=== PATIENT | female | born 1975 | race Caucasian/White ===

== ENCOUNTER 2021-06-06 01:06 | Inpatient (IN) | payer MEDICAID, SELFPAY ==
[2021-06-06] VITALS (23 sets, daily range): BP systolic 76–199; BP diastolic 58–114; PULSE 54–131; RESP 20–30; TEMP 36.1–37.3; O2SAT 92–100; BMI 43.4
--- NOTE | ~2021-06-06 | CT_ITS ---
EXAMINATION: CT abdomen pelvis wo con DATE: 06/08/2021 11:10 INDICATION: Anemia. TECHNIQUE: Computed tomography (CT) of the abdomen and pelvis was performed without intravenous contr ast. Automated exposure control and iterative reconstruction technique were employed. The dose-length product was 1684.97 mGy-cm. COMPARISON: CT abdomen and pelvis 06/06/2021 FINDINGS: The visualized portions of the lung bases demonstrate small pleural effusions and dependent atelectasis. The heart size is normal. No pericardial effusion. The nasogastric tube tip is in the s tomach. There is mild elevation of right hemidiaphragm. The liver and gallbladder are normal. There i s contrast in the gallbladder, which is normal in size. The pancreas, adrenal glands, and kidneys are normal. The bladder is decompressed by a Barton catheter. There is an anastomosis in the sigmoid colo n. There are changes of right hemicolectomy. There are a few dilated loops of small bowel. There is a small volume of ascites. There are foci of free intraperitoneal gas, consistent with recent surgery. There is a surgical drain in the subcutaneous fat in right abdominal wall. There is fat stranding an d a small volume of fluid in this area. There is a catheter in right common femoral vein with tip in right external iliac vein. There is a left-sided ventral hernia containing fat. There is mild peripor michelle and left para-aortic lymphadenopathy, likely reactive. There is mild thoracolumbar spondylosis. IMPRESSION: 1. Small volume of fluid in the subcutaneous fat in right anterior abdominal wall with surgical drain . 2. Small volume of ascites. 3. Small pleural effusions. 4. Mild periportal and left para-aortic lymphadenopathy, likely reactive. 5. Left-sided ventral hernia containing fat. Reviewed, dictated and finalized at location A. ER FOLDER IMPRESSION: 1. Small volume of fluid in the subcutaneous fat in right anterior abdominal wa ll with surgical drain. 2. Small volume of ascites. 3. Small pleural effusions. 4. Mild periportal and left para-aortic lymphadenopathy, likely reactive. 5. Left-sided ventral hernia containing fat.
--- NOTE | ~2021-06-06 | XR_ITS ---
EXAMINATION: XR chest 1V portable DATE: 06/08/2021 06:06 INDICATION: Respiratory failure. TECHNIQUE: A single frontal view of the chest was obtained. COMPARISON: Chest single view 06/07/2021, CT abdomen and pelvis 06/06/2021 FINDINGS: The patient is rotated to her right. There are mild airspace opacities in the lower lung zo zoë. No pleural effusion or pneumothorax. The heart size is normal. The endotracheal tube tip is 5.5 cm above the cesar. The nasogastric tube tip is beyond the inferior margin of the radiograph, but at least to the stomach. IMPRESSION: 1. Mild airspace opacities in the lower lung zones, consistent with atelectasis versus pneumonia. Reviewed, dictated and finalized at location A. ER INFLATED PAD
--- NOTE | ~2021-06-06 | CT_ITS ---
EXAMINATION: CT abdomen pelvis w con INDICATION: Right-sided abdominal pain, history of bowel resection and hernia repair TECHNIQUE: Computed tomographic images of the abdomen and pelvis were obtained after the administrati on of 100 cc of Omnipaque 350 intravenous contrast. The dose-length product (DLP) was 2082.89 mGy-cm. Automated exposure control and iterative reconstruction technique were employed. COMPARISON: None available FINDINGS: Minimal dependent atelectasis is present in the lung bases. The heart size is normal. The l iver, spleen, pancreas, gallbladder, and adrenal glands are normal. The kidneys are unremarkable. The re is a moderate-sized ventral hernia in the right upper quadrant containing a nonobstructed segment of transverse colon. The transverse colon enters the abdomen and immediately herniates through a seco nd adjacent ventral hernia located just to the right of midline. There are free gas and stool within the hernia sac which extend into the abdomen with an approximately 8 cm area of free stool seen in th e abdomen. An approximately 9.5 cm area of free intraperitoneal gas extends superiorly from the local ized stool. There is a left lower quadrant ventral hernia containing a short segment of the descendin g colon. A surgical anastomosis is noted in the sigmoid colon. No pathologically enlarged abdominal o r pelvic lymph nodes are identified. There is a 6.8 cm subcutaneous lipoma of the left lateral chest wall. There is mild lumbar spondylosis. IMPRESSION: 1. Right-sided ventral hernias containing transverse colon as detailed above with perforation and a l arge volume of free stool in the abdomen and in the lateral of the two hernia sacs. This finding was communicated to Dr. Henning in the operating room at 0932 hours on 06/06/2021. 2. Left lower quadrant ventral hernia containing a short segment of nondistended descending colon. Reviewed, dictated and finalized at location A. EY TECHNOLOGIST IMPRESSION: 1. Right-sided ventral hernias containing transverse colon as detailed above wi th perforation and a large volume of free stool in the abdomen and in the later al of the two hernia sacs. This finding was communicated to Dr. Henning in the ope rating room at 0932 hours on 06/06/2021. 2. Left lower quadrant ventral hernia containing a short segment of nondistende d descending colon.
--- NOTE | ~2021-06-06 | XR_ITS ---
EXAMINATION: XR chest 1V portable DATE: 06/09/2021 06:02 INDICATION: Respiratory failure. TECHNIQUE: A single frontal view of the chest was obtained. COMPARISON: Chest single view 06/08/2021, CT abdomen and pelvis 06/08/2021 FINDINGS: There is mild atelectasis in the lower lung zones. No pleural effusion or pneumothorax. The heart size is normal. The endotracheal tube tip is 5.2 cm above the cesar. The nasogastric tube tip is beyond the inferior margin of the radiograph, but at least to the stomach. IMPRESSION: 1. Mild atelectasis in the lower lung zones. Reviewed, dictated and finalized at location A. ET JOURNEYMAN
--- NOTE | ~2021-06-06 | XR_ITS ---
EXAMINATION: XR chest 1V portable DATE: 06/10/2021 06:05 INDICATION: Respiratory failure. TECHNIQUE: A single frontal view of the chest was obtained. COMPARISON: Chest single view 06/09/2021, CT abdomen and pelvis 06/08/2021 FINDINGS: There is a small right pleural effusion. There are airspace opacities in the lower lung zon es. No pneumothorax. The heart size is normal. IMPRESSION: 1. Airspace opacities in the lower lung zones with worsening on the left, consistent with atelectasis versus pneumonia. 2. Small right pleural effusion. Reviewed, dictated and finalized at location A. ARIAL ASSOCIATE IMPRESSION: 1. Airspace opacities in the lower lung zones with worsening on the left, consi stent with atelectasis versus pneumonia. 2. Small right pleural effusion.
--- NOTE | ~2021-06-06 | XR_ITS ---
EXAMINATION: XR chest ET placement DATE: 06/06/2021 13:56 INDICATION: Intubation. TECHNIQUE: A single frontal view of the chest was obtained. COMPARISON: Chest 2 views 04/19/2009, CT abdomen and pelvis 06/06/2021 FINDINGS: There is mild atelectasis in the lower lung zones. No pleural effusion or pneumothorax. The heart size is normal. The endotracheal tube tip is 5.6 cm above the cesar. The nasogastric tube tip is beyond the inferior margin of the radiograph, but at least to the stomach. IMPRESSION: 1. Mild atelectasis in the lower lung zones. Reviewed, dictated and finalized at location A. RATORY SAMPLE CARRIER
--- NOTE | ~2021-06-06 | XR_ITS ---
EXAMINATION: XR chest 1V portable INDICATION: Respiratory failure TECHNIQUE: Portable AP chest at 0508 hours COMPARISON: 06/06/2021 FINDINGS: The endotracheal tube ends approximately 4.5 cm above the cesar. The nasogastric tube is f ollowed as far as the stomach. Its tip is beyond the inferior margin of the radiograph. There is mild atelectasis of the lung bases. No pleural effusion or pneumothorax is identified. The cardiomediasti nal silhouette is normal. IMPRESSION: 1. Mild atelectasis of the lung bases. Reviewed, dictated and finalized at location A. ROOM PERSONNEL
--- NOTE | ~2021-06-06 | XR_ITS ---
EXAMINATION: XR abdomen NG/feed tube insert DATE: 06/06/2021 05:02 INDICATION: Nasogastric tube placement. TECHNIQUE: An upright view of the abdomen was obtained. COMPARISON: CT abdomen and pelvis 06/06/2021 FINDINGS: The lower abdomen is excluded. There are no visible dilated loops of bowel. The nasogastric tube tip is in the stomach. IMPRESSION: 1. Nasogastric tube tip in the stomach. Reviewed, dictated and finalized at location A. SALES SERVICE PROFESSIONAL
[2021-06-06] MEDS: ONDANSETRON INJ 4 MG/2 ML VIAL IV PUSH (01:25)
[2021-06-06] MEDS: SODIUM CHLORIDE 0.9% IV 1,000 ML 999 ML IV CONT ×4 (01:25→21:41)
[2021-06-06] MEDS: MORPHINE SULFATE (*CRX) 4 MG/ML INJ IV PUSH ×2 (01:25→02:15)
[2021-06-06 01:35] LABS: Basophils Absolute Auto 0.1 K/mm3 (0.0-0.1); Basophils Percent Auto 0.8 % (0.2-1.2); Eosinophils Absolute Auto 0.3 K/mm3 (0-0.3); Eosinophils Percent Auto 2.3 % (0-4.4); Hematocrit 41.8 % (37.0-47.0); Hemoglobin 13.9 g/dL (12.0-15.0); Immature Granulocyte Absolute 0.11 K/mm3 (0.00-0.031); Immature Granulocyte Percent A 0.7 % (0-0.5); Lymphocytes Percent Auto 34.3 % (18.3-44.2); Mean Corpuscular HGB Conc 33.3 g/dl (32-36); Mean Corpuscular Hemoglobin 27.5 pg (26-34); Mean Corpuscular Volume 82.6 fl (80-100); Mean Platelet Volume 9.8 fl (7.4-10.4); Monocytes Percent Auto 6.5 % (2.6-8.5); Neutrophils Absolute Auto 8.3 K/mm3 (1.3-6.7); Neutrophils Percent Auto 55.4 % (45.5-73.1); Platelet Count Result 351 k/mm3 (150-375); Red Blood Count 5.06 M/mm3 (4.2-5.4); Red Cell Distribution Width 14.7 % (11.5-14.5); White Blood Count 14.9 K/mm3 (4.5-10.0)
--- NOTE | 2021-06-06 01:35 | ED.ABDPAIN ---
HPI - Abdominal Pain General Chief Complaint: Abdominal Pain Stated Complaint: abdominal pain Time Seen by Provider: 06/06/21 01:16 Source: patient History of Present Illness HPI narrative: Patient presents with nausea vomiting diarrhea and abdominal pain. Patient ports a history of bowel resection and hernia repairs. Her symptoms started this evening and began progressively worse so she came to the ER for evaluation. Her pain is primarily on her right abdomen is sharp, constant, no clear aggravating or alleviating factors, no radiation. She denies any blood or bile or melena she denies any fevers or sick contacts Related Data Allergies Allergy/AdvReac Type Severity Reaction Status Date / Time No Known Allergies Allergy Verified 06/06/21 02:47 Review of Systems Review of Systems: CONSTITUTIONAL: Denies fever, chills, or sweats. EYES: Denies visual changes, redness, or discharge. ENT: Denies rhinorrhea, congestion, sore throat, or otalgia. CARDIOVASCULAR: Denies chest pain, palpitations, or edema. RESPIRATORY: Denies cough or dyspnea. GASTROINTESTINAL: + Abdominal pain with nausea vomiting diarrhea GENITOURINARY: Denies dysuria or hematuria. SKIN: Denies rash or itching. MUSCULOSKELETAL: Denies back pain, joint pain, or myalgia. NEUROLOGIC: Denies headache, numbness, dizziness, or weakness. PSYCHIATRIC: Denies anxiety or depression. All systems reviewed & are unremarkable except as noted in HPI and below PMFSH Past Medical History Medical History (Updated 06/06/21 @ 04:28 by Gilberto Alex MD) Patient denies significant medical history Social History Social History (Updated 06/06/21 @ 01:37 by Gilberto Alex MD) Substance use type: does not use Exam Narrative: GENERAL: Well-appearing, well-nourished, and in moderate distress due to pain HEAD: Normocephalic, atraumatic. EYES: PERRLA and EOMI. ENT: Nares clear, no rhinorrhea or epistaxis. Mucous membranes moist. NECK: Supple. No masses. No JVD CHEST: Clear to auscultation. No respiratory distress. No wheezes rales or rhonchi HEART: Regular rate and rhythm. No murmur heard. Normal peripheral pulses. ABDOMEN: Mild tenderness of patient on the right soft, large midline abdominal scar normal active bowel sounds. EXTREMITIES: Normal range of motion. No edema. SKIN: Warm, dry, no rash. NEURO: No focal deficits. Alert and oriented x3. PSYCH: Normal mood and affect. Course Reevaluation(s) Reevaluation #1: Patient continues to be in moderate distress due to pain imaging returned concerning for possible ischemic bowel and perforation surgical team was consulted patient was started on antibiotics patient family were updated on results and plan Date: 06/06/21 Time: 04:26 Consultations Consultation #1: Case discussed with Dr. Henning who will be seeing the patient this morning. Date: 06/06/21 Time: 04:26 Consultation #2: Dr. Henning contact wong regaurding patients pain Date: 06/06/21 Time: 04:50 Vital Signs Vital signs: Vital Signs Temperature 36.2 C L 06/06/21 01:11 Pulse Rate 91 06/06/21 01:11 Respiratory Rate 25 H 06/06/21 01:11 Blood Pressure 146/109 H 06/06/21 01:11 Pulse Oximetry 100 06/06/21 01:11 Temperature 36.2 C L 06/06/21 01:11 Pulse Rate 118 H 06/06/21 06:36 Respiratory Rate 29 H 06/06/21 06:36 Blood Pressure 168/97 H 06/06/21 06:36 Pulse Oximetry 92 06/06/21 06:36 MDM - Abdominal Pain MDM Narrative Medical decision making narrative: Patient presented nondistressed due to abdominal pain vital signs were reassuring labs and imaging obtained labs notable for elevated white count elevated lactate imaging concerning for ischemic bowel and possible localized perforation surgical team was consulted to evaluate the patient this morning. Patient is admitted to the hospitalist team for further management. Family is comfortable with the inpatient plan. Lab Data Result diagrams: 06/06/21 01:27 06/06/21 01:
[2021-06-06 01:49] LABS: Alanine Aminotransferase 14 U/L (4-35); Albumin Level 4.5 g/dL (3.5-5.1); Alkaline Phosphatase 60 U/L (38-126); Anion Gap 16 mmol/L (8-16); Aspartate Amino Transferase 23 U/L (14-36); Bilirubin,Total 0.5 mg/dL (0.2-1.3); Blood Urea Nitrogen 20 mg/dL (7-17); Calcium 10.4 mg/dL (8.4-10.2); Carbon Dioxide 22 mmol/L (22-30); Chloride 99 mmol/L (98-107); Estimated CRCL calculation 82 ml/min; Estimated Glomerular Filt Rate 59; Glucose 197 mg/dL (65-110); Lipase 765 U/L (23-300); Potassium 3.2 mmol/L (3.4-5.0); Sodium 137 mmol/L (137-145)
[2021-06-06 01:52] LABS: Lactic Acid Reflex 4.6 mmol/L (0.7-2.1)
[2021-06-06] MEDS: HYDROmorphone HCL INJ (*CRX) 1 MG/ML SYR IM (02:54)
[2021-06-06] MEDS: SODIUM CHLORIDE 0.9% IV 500 ML 50 ML IV CONT (03:11)
[2021-06-06] MEDS: KCL 20 MEQ/SW 100 ML 100 ML 50 MEQ IVPB ×2 (03:11→05:14)
[2021-06-06] MEDS: HYDROmorphone HCL INJ (*CRX) 1 MG/ML SYR IV PUSH ×3 (04:24→14:22)
[2021-06-06 04:32] LABS: Reflex Lactic Acid Yes or No Add Lactic
[2021-06-06] MEDS: HYDROmorphone HCL INJ (*CRX) 1 MG/ML SYR 0.5 MG IV PUSH ×2 (05:11→06:11)
[2021-06-06 05:18] LABS: Lactic Acid 5.7 mmol/L (0.7-2.1)
[2021-06-06] MEDS: SODIUM CHLORIDE 0.9% IV 1,000 ML 125 ML IV CONT (07:46)
--- NOTE | 2021-06-06 08:23 | WPDANESEPPF ---
Anes - Initial Pre Proc Eval Procedure: Operation Date: 06/06/21 09:00 Proposed Procedures p Repair Incarcerated Incisional Hernia with Strangulation - Luisito Henning MD Date/Time: 06/06/21 08:23 Pre Op Diagnosis: Abdominal Pain Patient Data Age: 46 Gender: F Height: 1.68 m Weight: 122 kg Last Vital Signs Temp 36.2 C L 06/06/21 01:11 Pulse 123 H 06/06/21 08:19 Resp 30 H 06/06/21 08:19 BP 190/110 H 06/06/21 08:19 Pulse Ox 97 06/06/21 08:19 Allergies Allergy/AdvReac Type Severity Reaction Status Date / Time No Known Allergies Allergy Verified 06/06/21 02:47 Laboratory Tests 06/06/21 06/06/21 06/06/21 01:27 01:27 01:27 WBC 14.9 K/mm3 H K/mm3 (4.5-10.0) RBC 5.06 M/mm3 M/mm3 (4.2-5.4) Hgb 13.9 g/dL g/dL (12.0-15.0) Hct 41.8 % % (37.0-47.0) MCV 82.6 fl fl (80-100) MCH 27.5 pg pg (26-34) MCHC 33.3 g/dl g/dl (32-36) RDW 14.7 % H % (11.5-14.5) Plt Count 351 k/mm3 k/mm3 (150-375) MPV 9.8 fl fl (7.4-10.4) Immature Gran % (Auto) 0.7 % H % (0-0.5) Neut % (Auto) 55.4 % % (45.5-73.1) Lymph % (Auto) 34.3 % % (18.3-44.2) [place] % (Auto) 6.5 % % (2.6-8.5) Eos % (Auto) 2.3 % % (0-4.4) Baso % (Auto) 0.8 % % (0.2-1.2) Lymph # (Auto) 5.10 K/mm3 H K/mm3 (0.9-3.2) [place] # (Auto) 1.0 K/mm3 H K/mm3 (0.1-0.6) Eos # (Auto) 0.3 K/mm3 K/mm3 (0-0.3) Baso # (Auto) 0.1 K/mm3 K/mm3 (0.0-0.1) Abs Immat Gran (auto) 0.11 K/mm3 H K/mm3 (0.00-0.031) Absolute Neuts (auto) 8.3 K/mm3 H K/mm3 (1.3-6.7) Absolute Nucleated RBC 0.0 K/mm3 K/mm3 (0.0-0.012) Nucleated RBC % 0.0 % % (0.0-0.2) Sodium 137 mmol/L mmol/L (137-145) Potassium 3.2 mmol/L L mmol/L (3.4-5.0) Chloride 99 mmol/L mmol/L (98-107) Carbon Dioxide 22 mmol/L mmol/L (22-30) Anion Gap 16 mmol/L mmol/L (8-16) BUN 20 mg/dL H mg/dL (7-17) Creatinine 1.00 mg/dL mg/dL (0.7-1.0) Estim Creat Clear Calc 82 ml/min ml/min Estimated GFR 59 (59 - ) Glucose 197 mg/dL H mg/dL (65-110) Lactic Acid 4.6 mmol/L H* mmol/L (0.7-2.1) Calcium 10.4 mg/dL H mg/dL (8.4-10.2) Total Bilirubin 0.5 mg/dL mg/dL (0.2-1.3) AST 23 U/L U/L (14-36) ALT 14 U/L U/L (4-35) Alkaline Phosphatase 60 U/L U/L (38-126) Total Protein 8.0 g/dL g/dL (6.3-8.2) Albumin 4.5 g/dL g/dL (3.5-5.1) Lipase 765 U/L H U/L (23-300) 06/06/21 04:39 WBC RBC Hgb Hct MCV MCH MCHC RDW Plt Count MPV Immature Gran % (Auto) Neut % (Auto) Lymph % (Auto) [place] % (Auto) Eos % (Auto) Baso % (Auto) Lymph # (Auto) [place] # (Auto) Eos # (Auto) Baso # (Auto) Abs Immat Gran (auto) Absolute Neuts (auto) Absolute Nucleated RBC Nucleated RBC % Sodium Potassium Chloride Carbon Dioxide Anion Gap BUN Creatinine Estim Creat Clear Calc Estimated GFR Glucose Lactic Acid 5.7 mmol/L H* mmol/L (0.7-2.1) Calcium Total Bilirubin AST ALT Alkaline Phosphatase Total Protein Albumin Lipase Patient hx anesthesia problems: none Family hx anesthesia problems: none Results Review: All pre-operative results and documents have been reviewed as part of the pre-operative evaluation. [facility] Past Medical History Medical History (Updated 06/06/21 @ 08:25 by Mandeep Flor MD) Morbid obesity Surgical History Surgical History (Updated 06/06/21 @ 08:25 by Mandeep Flor MD) Hist
--- NOTE | 2021-06-06 08:30 | PC.NURSE ---
to pre-op area at this time
[2021-06-06] MEDS: LACTATED RINGERS 1,000 ML 30 ML IV CONT (08:32)
--- NOTE | 2021-06-06 08:57 | WPDHPUPDATE1 ---
History and Physical Update Update Date/Time: 06/06/21 08:57 History and Physical has been reviewed, including an updated exam of the patient. There are NO changes in the patient's condition. Risks, benefits, and alternatives have been discussed and questions answered. Patient agrees to proceed with procedure.
[2021-06-06] MEDS: HYDROGEN PEROXIDE 3% SOLN(*SP) 473 ML BOTTLE 3000 ML IRRIGATION (12:07)
--- NOTE | 2021-06-06 14:11 | WPDCNINT ---
Assessment and Plan Assessment and plan (1) Acute respiratory failure: Code(s): J96.00 - Acute respiratory failure, unspecified whether with hypoxia or hypercapnia Status: Acute Assessment and Plan: Acute Respiratory failure secondary to sepsis, perforated bowel and general anesthesia Continue full mechanical ventilation support to prevent hypoxemia/hypercarbia and end organ damage. ABG Pending PCXR reviewed and will advance ET tube by 2 cm Vent settings reviewed Low tidal volume ventilation strategy to prevent volutrauma Will attempt SBT when ready to wean. (2) Sepsis: Code(s): A41.9 - Sepsis, unspecified organism Status: Acute Assessment and Plan: Secondary to bowel perforation and incarcerated hernia, peritonitis Now status post ex lap hemicolectomy Please refer to general surgery note for details Patient has received close to 6 L of IV fluid bolus. Will continue IV fluids maintained IV Zosyn and Diflucan Cultures Check lactic acid level Blood pressure is adequate at this time and does not require vasopressors (3) Perforation bowel: Code(s): K63.1 - Perforation of intestine (nontraumatic) Status: Acute (4) Peritonitis: Code(s): K65.9 - Peritonitis, unspecified Status: Acute (5) Incarcerated hernia: Code(s): K46.0 - Unspecified abdominal hernia with obstruction, without gangrene Status: Acute Additional Plan DVT prophylaxis -start Lovenox from tomorrow Stress ulcer prophylaxis -PPI Nutrition -NPO Code Status - Full Code Total Critical Care Time - 35 minutes Due to a high probability of clinically significant, life threatening deterioration, the patient required my highest level of preparedness to intervene emergently and I personally spent this critical care time directly and personally managing the patient. This critical care time included obtaining a history; examining the patient; pulse oximetry; ordering and review of studies; arranging urgent treatment with development of a management plan; evaluation of patient's response to treatment; frequent reassessment; and discussions with other providers. It was exclusive of separately billable procedures and treating other patients and teaching time. Please see Assessment and Plan section and the rest of the note for further information on patient assessment and treatment Quality Assurance Qa Lab Analyst Consult Note Consult date: 06/06/21 HPI: Katlin Barton is a 46 year old female with history of incarcerated hernia, hernia repair, bowel resection who presented to ER last night with chief complaint of nausea and vomiting with abdominal pain. Patient was found to be having elevated lactic acid level. CT abdomen pelvis showed incarcerated hernia and bowel perforation. Patient was taken to operating room by Dr. Henning patient underwent exploratory laparotomy and idalia colectomy. Please refer to surgical op note for details. Patient admitted to ICU for further management postop. Currently sedated on mechanical ventilation. History obtained from chart and Physician sign out. Pt intubated and sedated and unable to provide any other history. Review of Systems Review of Systems: ROS unobtainable: Yes unobtainable due to endotracheal tube, unobtainable due to medical condition and unobtainable due to mental status PMFSH Past Medical History Medical History Morbid obesity Surgical History Surgical History History of section History of creation of ostomy Social History Social History Substance use type: does not use Meds Home Medications and Allergies Allergies Allergy/AdvReac Type Severity Reaction Status Date / Time No Known Allergies Allergy Verified 06/06/21 02:47 Vital Signs Vital Signs - 24 hr 06/06/21 01:11 06/06/21 03:29
[2021-06-06] MEDS: PROPOFOL IV EMULSION 100 ML 21.96 MG IV CONT ×2 (14:16→16:57)
[2021-06-06 14:29] LABS: Glucose Point of Care 234 mg/dl (65-105)
[2021-06-06] MEDS: INSULIN ASPART (*BKC) 100 UNITS/ML SUB-Q (14:30)
--- NOTE | 2021-06-06 14:38 | PC.NURSE ---
1400-ARRIVED FROM OR PER BED. OR STAFF AT BEDSIDE. ALL QUESTIONS ANSWERED.
[2021-06-06] MEDS: FLUCONAZOLE 400 MG/NACL 200 ML 400 MG/200 ML BAG 100 MG IVPB (14:55)
[2021-06-06] MEDS: KCL 20 MEQ/0.45% NS 1,000 ML 150 ML IV CONT (14:55)
[2021-06-06 14:57] LABS: Anion Gap 10 mmol/L (8-16); Blood Urea Nitrogen 18 mg/dL (7-17); Calcium 7.9 mg/dL (8.4-10.2); Carbon Dioxide 12 mmol/L (22-30); Chloride 111 mmol/L (98-107); Estimated CRCL calculation 69 ml/min; Estimated Glomerular Filt Rate 48; Glucose 261 mg/dL (65-110); Magnesium 1.1 mg/dL (1.6-2.3); Potassium 5.4 mmol/L (3.4-5.0); Sodium 133 mmol/L (137-145)
[2021-06-06 15:00] LABS: Lactic Acid Reflex 7.3 mmol/L (0.7-2.1)
[2021-06-06 15:15] LABS: Alveolar/Arterial O2 Gradient 89.8 mmHg; Base Excess ABG -14.3 mEq/l (+/-2.0); Fractional Inspired Oxygen 40 %; HCO3 ABG 12.1 mEq/l (22.0-26.0); Oxygen Content ABG 21.5 %vol (16.0-22.0); Oxygen Saturation ABG 98.7 % (95.0-100.0); Oxyhemoglobin 97.4 % THb (90.0-100.0); PCO2 ABG 30.7 mmHg (35.0-45.0); PO2 ABG 160.1 mmHg (80.0-100.0); Total Hemoglobin 15.5 g/dL (12.0-18.0)
[2021-06-06 15:19] LABS: Arterial Blood Gas PEEP 5 cmH2O; Arterial Blood Gas Tidal Volume 450 ml; Arterial Blood Gas Vent Mode CMV; Arterial Blood Gas Ventilator rate 20 /MIN; Device VENTILATOR; Modified Allen's Test Pass; Site Drawn RIGHT RADIAL; pH ABG 7.214 (7.350-7.450)
[2021-06-06] MEDS: SODIUM BICARBONATE 8.4% 50 MEQ/50 ML SYRINGE 100 MEQ IV PUSH (15:51)
[2021-06-06] MEDS: SODIUM BICARBONATE 8.4% 150 MEQ in WATER, STERILE FOR INJECTION 950 ML IV CONT (16:56)
[2021-06-06 17:38] LABS: Reflex Lactic Acid Yes or No Add Lactic
[2021-06-06 18:28] LABS: Glucose Point of Care 198 mg/dl (65-105)
[2021-06-06 18:29] LABS: Lactic Acid 6.6 mmol/L (0.7-2.1)
[2021-06-06] MEDS: MIDAZOLAM 100MG/NS 100ML(*CRX) 100 MG/100 ML BAG IV CONT (19:08)
[2021-06-06] MEDS: LACTATED RINGERS 1,000 ML 999 ML IV CONT (19:08)
[2021-06-06] MEDS: MIDAZOLAM HCL (*CRX) 2 MG/2 ML VIAL 5 MG IV PUSH (19:09)
--- NOTE | 2021-06-06 19:25 | PM.IMHP ---
H&P: HPI History of Present Illness Date/Time: 06/06/21 08:15 Chief Complaint: Abdominal pain Narrative: Patient is a 46-year-old woman who presented to the emergency room last night with severe abdominal pain. She had obvious herniation in the right upper quadrant. She had tenderness there as well. [place] [address]. She had an elevated serum lactate of 4.6 which subsequently winsome to 5.7. CT scan of the abdomen and pelvis showed 2 adjacent right upper quadrant hernias with evidence of colon incarceration and strangulation possibly with infarction. There was also a left lower quadrant hernia. This also contained bowel but had no suggestion of ischemia. The patient and her reported she had had previous bowel resection here at [facility] followed by closure of her colostomy. Later she had a hernia repair. Review of old records on the computer showed that in August of 2001 she presented with a huge abscess in the lower abdominal midline due to diverticulitis. She underwent sigmoidectomy with end descending colostomy. Small bowel attached to the abscess was gangrenous and small bowel resection was required. She weighed over 300 lb at that time. She returned to surgery about 5 months later on 01/27/2002 and underwent laparoscopic closure of her end descending colostomy. She developed hernias and was taken back to surgery for repair of multiple incisional hernias December 06, 2002. Review of this operative note shows that she had not only a midline hernia but also small right upper quadrant hernias and a left lower quadrant hernia where her colostomy site had been located. The colostomy hernia was closed with PDS suture intra-abdominally. The midline, right upper quadrant and colostomy hernia sites were all repaired with underlay Marlex mesh at the time of the surgery. When the patient was seen, she was still having pain. She is taken urgently this morning for repair of her incarcerated recurrent incisional hernias and possibly bowel resection due to strangulation and infarction. Review of Systems Review of Systems: All systems reviewed & are unremarkable except as noted in HPI and below Constitutional: Constitutional: Reports as per HPI, Denies chills and Denies fever(s) Cardiovascular: Cardiovascular: Denies chest pain, Denies diaphoresis, Denies dyspnea and Denies paroxysmal nocturnal dyspnea Respiratory: Respiratory: Denies chest congestion, Denies cough and Denies dyspnea Gastrointestinal: Gastrointestinal: Reports as per HPI and Reports abdominal pain Integumentary/Breasts: Skin/Breast: Denies lesions and Denies rash PMFSH Past Medical History Medical History (Updated 06/06/21 @ 20:01 by Luisito Henning MD) Morbid obesity Surgical History Surgical History History of section History of creation of ostomy Social History Social History Smoking status: Never smoker Alcohol intake: current Substance use: never Substance use type: does not use Spiritual care concerns: No Meds Home Medications and Allergies Allergies Allergy/AdvReac Type Severity Reaction Status Date / Time No Known Allergies Allergy Verified 06/06/21 02:47 Vital Signs Vital Signs - 24 hr 06/06/21 01:11 06/06/21 03:29 06/06/21 04:41 Temperature 36.2 C L Pulse Rate 91 93 102 H Respiratory Rate 25 H 23 H 23 H Blood Pressure 146/109 H 181/85 H 167/97 H Pulse Oximetry 100 96 100 06/06/21 05:14 06/06/21 06:36 06/06/21 07:36 Temperature Pulse Rate 106 H 118 H 121 H Respiratory Rate 22 H 29 H 30 H Blood Pressure 166/104 H 168/97 H 186/114 H Pulse Oximetry 100 92 96 06/06/21 08:19 06/06/21 08:46 06/06/21 13:45 Temperature 36.1 C L Pulse Rate 123 H 126 H 112 H Respiratory Rate 30 H 20 Blood Pressure 190/110 H 189/106 H Pulse Oximetry 97 96 99 06/06/21 14:00 06/06/21 14:16 06/06/21
[2021-06-06] MEDS: fentaNYL CITRATE INJ (*CRX) 100 MCG/2 ML VIAL 50 MCG IV PUSH ×2 (20:05→22:18)
[2021-06-06 22:01] LABS: Add Urine Microscopic? YES; Amorphous Sediment Urine Few; Appearance Urine Cloudy (Clear); Bacteria Urine Trace /hpf; Bilirubin Urine Negative (Negative); Blood Urine Negative (Negative); Color Urine Amber (Yellow); Glucose Urine UA Negative (Negative); Ketones Urine Negative (Negative); Leukocyte Esterase Ur Negative LEU/UL (Negative); Mucus Urine Rare /lpf; Nitrate Urine Negative (Negative); Protein Urine 2+ mg/dL (Negative); RBC Urine 21-50 /hpf (0-2); Squamous Epithelial Cell Urine Few /hpf (Few); Urobilinogen Urine Negative mg/dL (<2.0); WBC Urine 0-3 /hpf
--- NOTE | 2021-06-06 22:12 | WPDPROCEDUR ---
Procedures Central Line Placement Right Femoral: Central Line Date: 06/06/21 Central Line Time: 21:13 Discussed w/ the patient/family/POA,the placement of a central venous catheter, including its clinical necessity/indication & associated potential risks, benifits and alternatives.: Yes Time Out Performed: Yes Patient Position: supine Patient placed on monitor/pulse ox: Yes Provider Prep: Max. sterile barrier precautions Local anesthesia used: lidocaine 1% Sterile US Technique with sterile gel/sterile probe covers: Yes Central line lumen inserted: triple Albanian: 7 Length (cm): 16 Depth of Insertion (cm): 16 Post Procedure: sutured in place, good blood return, all ports aspirated, flushed, capped, transparent dressing and antimicrobial product Patient tolerated procedure: well Complications: none
[2021-06-06] MEDS: MINERAL OIL/WHITE PETROLATUM OINTMENT 1 APPLIC EACH EYE (22:18)
[2021-06-06 23:40] LABS: Lactic Acid Reflex 6.4 mmol/L (0.7-2.1)
[2021-06-07] VITALS (29 sets, daily range): BP systolic 89–127; BP diastolic 62–96; PULSE 103–135; RESP 19–28; TEMP 37.1–37.4; O2SAT 95–99; BMI 43.4
--- NOTE | 2021-06-07 | ECHO_ITS ---
Patient Info Name: Katlin Barton Age: 46 years : 1975 Gender: Female Ht: 66 in Wt: 268 lbs BSA: 2.44 m2 HR: 130 bpm BP: 119 / 96 mmHg Technical Quality: Poor Exam Date: 06/07/2021 9:53 AM Exam Location: [facility] Patient Status: Inpatient Admit Date: 06/06/2021 Staff Ordering Physician: Honorio Navarrete MD Volleyball Coach: Alivia Terry RDCS Attending Provider: Luisito Henning MD Exam Type: CA echo doppler color flow Study Info Indications R00.0 - Tachycardia, unspecified Complete two-dimensional, color flow and Doppler transthoracic echocardiogram is performed. Reason for Poor Study: poor echocardiographic windows Summary 1. Complete two-dimensional, color flow and Doppler transthoracic echocardiogram is performed. 2. Technically suboptimal study due to poor sonographic images. 3. Left ventricular chamber dimension is normal. 4. Left ventricular systolic function is hyperdynamic, estimated at >70%. 5. The left ventricular diastolic function is grade I diastolic dysfunction. 6. E/e' 13 is mildly elevated. 7. No pulmonary hypertension, estimated pulmonary arterial systolic pressure is 17 mmHg. Left Ventricle Technically suboptimal study due to poor sonographic images. E/e' 13 is mildly elevated. Left ventricular chamber dimension is normal. Left ventricular systolic function is hyperdynamic, estimated at >70%. The left ventricular diastolic function is grade I diastolic dysfunction. Right Ventricle Right ventricular chamber dimension is normal. Right ventricular systolic function is normal. Left Atria Left atrial chamber dimension is normal. Right Atria Right atrial chamber dimension is normal. Aortic Valve The aortic valve is not well visualized. Cannot determine number of aortic valve leaflets. There is no aortic valve stenosis. There is no aortic valve regurgitation. Pulmonic Valve The pulmonic valve is not well visualized. Mitral Valve There is no mitral valve stenosis. There is no mitral valve regurgitation. Tricuspid Valve There is no tricuspid valve regurgitation. No pulmonary hypertension, estimated pulmonary arterial systolic pressure is 17 mmHg. Pericardium/Pleural There is no pericardial effusion. Inferior Vena Cava Normal inferior vena cava with >50% collapse upon inspiration consistent with normal right atrial pressure, 5 mmHg. Aorta The aortic root size at the sinus of Valsalva is normal. Left Ventricular Outflow Tract Name Value Normal LVOT 2D LVOT Diameter 1.9 cm LVOT Doppler LVOT Peak Gradient 8 mmHg LVOT Mean Gradient 4 mmHg LVOT VTI 16 cm LVOT VTI/AV VTI Ratio 0.7 LVOT Stroke Volume 44 ml LVOT CO 5.8 l/min LVOT CI 2.4 l/min/m2 Pulmonic Valve Name Value Normal
[2021-06-07] MEDS: FENTANYL 2,500MCG/NS250ML(*CRX 2,500 MCG/250 ML BAG 7.5 MCG IV CONT (00:25)
[2021-06-07 00:27] LABS: Glucose Point of Care 196 mg/dl (65-105)
[2021-06-07] MEDS: SODIUM BICARBONATE 8.4% 150 MEQ in WATER, STERILE FOR INJECTION 950 ML IV CONT ×4 (01:02→23:54)
[2021-06-07 05:32] LABS: Hemoglobin 12.7 g/dL (12.0-15.0); Mean Corpuscular HGB Conc 33.4 g/dl (32-36); Mean Corpuscular Hemoglobin 28.2 pg (26-34); Mean Corpuscular Volume 84.3 fl (80-100); Mean Platelet Volume 9.8 fl (7.4-10.4); Platelet Count Result 220 k/mm3 (150-375); Red Blood Count 4.51 M/mm3 (4.2-5.4); Red Cell Distribution Width 15.4 % (11.5-14.5)
[2021-06-07 05:46] LABS: Lactic Acid Reflex 5.1 mmol/L (0.7-2.1)
[2021-06-07 05:51] LABS: Alveolar/Arterial O2 Gradient 82.2 mmHg; Base Excess ABG -3.7 mEq/l (+/-2.0); Carboxyhemoglobin 0.3 % THb (0-2.0); Fractional Inspired Oxygen 30 %; HCO3 ABG 20.7 mEq/l (22.0-26.0); Methemoglobin ABG 0.3 %THb (0-1.5); Oxygen Content ABG 17.7 %vol (16.0-22.0); Oxygen Saturation ABG 96.9 % (95.0-100.0); Oxyhemoglobin 95.6 % THb (90.0-100.0); PCO2 ABG 35.3 mmHg (35.0-45.0); PO2 ABG 90.2 mmHg (80.0-100.0); PO2 FiO2 Ratio Arterial Blood 3.01 %; Reduced Hemoglobin 3.8 %THb (0-5.0); Total Hemoglobin 13.1 g/dL (12.0-18.0); pH ABG 7.386 (7.350-7.450)
[2021-06-07 05:52] LABS: Arterial Blood Gas PEEP 5 cmH2O; Arterial Blood Gas Vent Mode CMV; Arterial Blood Gas Ventilator rate 20 /MIN; Device VENTILATOR; Modified Allen's Test Pass; Site Drawn LEFT RADIAL
[2021-06-07 05:53] LABS: Arterial Blood Gas Tidal Volume 450 ml
[2021-06-07 05:56] LABS: INR 1.6; Prothrombin Time 18.6 Seconds (11.1-14.7)
[2021-06-07 05:56] LABS: Alanine Aminotransferase 21 U/L (4-35); Albumin Level 2.5 g/dL (3.5-5.1); Alkaline Phosphatase 34 U/L (38-126); Anion Gap 12 mmol/L (8-16); Aspartate Amino Transferase 22 U/L (14-36); Bilirubin,Total 0.5 mg/dL (0.2-1.3); Blood Urea Nitrogen 30 mg/dL (7-17); Calcium 7.3 mg/dL (8.4-10.2); Carbon Dioxide 23 mmol/L (22-30); Chloride 97 mmol/L (98-107); Estimated CRCL calculation 34 ml/min; Estimated Glomerular Filt Rate 21; Glucose 187 mg/dL (65-110); Lipase 31 U/L (23-300); Magnesium 0.8 mg/dL (1.6-2.3); Phosphorus 5.6 mg/dL (2.5-4.5); Potassium 5.1 mmol/L (3.4-5.0); Sodium 132 mmol/L (137-145)
--- NOTE | 2021-06-07 08:16 | ECG_ITS ---
Measurements Intervals [place] Rate: 138 P: 54 ND: 121 QRS: 5 QRSD: 71 T: 50 QT: 298 QTc: 452 Interpretive Statements SINUS TACHYCARDIA LOW QRS VOLTAGE IN PRECORDIAL LEADS BORDERLINE R WAVE PROGRESSION, ANTERIOR LEADS BORDERLINE ST-T WAVE ABNORMALITY- HIGH LATERAL LEADS BASELINE WANDER- AVR, AVL, AVF, V3-V6 ABNORMAL ECG Electronically Signed On 06-07-2021 12:09:23 SENIOR RADIATION THERAPIST by Buddy Hernández D.O.
--- NOTE | 2021-06-07 08:28 | WPDANESPN ---
Anes - Prog Note Post-Op Date/Time: 06/07/21 08:28 Cardiovascular status: other Respiratory status: other Airway patency: other Mental status: other Post-Op hydration status: other Vital Signs: Last Vital Signs Temp 37.4 C 06/07/21 06:00 Pulse 129 H 06/07/21 06:00 Resp 22 H 06/07/21 06:00 BP 104/70 06/07/21 06:00 Pulse Ox 99 06/07/21 06:00 Pain Score (VAS): na I/O: Intake & Output 06/06/21 06/07/21 06/07/21 23:59 07:59 15:59 Intake Total 1350 1150 Output Total 275 340 Balance 1075 810 Laboratory Tests 06/07/21 05:13 06/07/21 05:13 06/06/21 06/06/21 06/06/21 09:58 14:20 14:20 WBC RBC Hgb Hct MCV MCH MCHC RDW Plt Count MPV PT INR APTT Puncture Site ABG pH ABG pCO2 ABG pO2 ABG PO2/FiO2 Ratio ABG HCO3 ABG O2 Saturation ABG O2 Content ABG Base Excess A-a Gradient Oxyhemoglobin Carboxyhemoglobin Methemoglobin Reduced Hemoglobin Total Hemoglobin O2 Delivery Device O2 Liters/Min Minute Volume Vent Rate Vent Mode FiO2 Tidal Volume PEEP Peak Inspir Pressure Pressure Support Sodium 133 L Potassium 5.4 H Chloride 111 H Carbon Dioxide 12 L Anion Gap 10 BUN 18 H Creatinine 1.20 H Estim Creat Clear Calc 69 Estimated GFR 48 L Glucose 261 H POC Capillary Glucose Lactic Acid 7.3 H* Calcium 7.9 L Phosphorus Magnesium 1.1 L Total Bilirubin AST ALT Alkaline Phosphatase Total Protein Albumin Lipase Urine Color Urine Appearance Urine pH Ur Specific [place] Urine Protein Urine Glucose (UA) Urine Ketones Ur Blood (Man) Urine Nitrate Urine Bilirubin Urine Urobilinogen Leukocyte Esterase Rfl Urine RBC Urine WBC Ur Squamous Epith Cells Amorphous Sediment Urine Bacteria Urine Mucus Blood Type A Negative Antibody Screen Negative 06/06/21 06/06/21 06/06/21 14:27 15:09 17:57 WBC RBC Hgb Hct MCV MCH MCHC RDW Plt Count MPV PT INR APTT Puncture Site Right radial ABG pH 7.214 L* ABG pCO2 30.7 L ABG pO2 160.1 H ABG PO2/FiO2 Ratio 4.00 ABG HCO3 12.1 L ABG O2 Saturation 98.7 ABG O2 Content 21.5 ABG Base Excess -14.3 A-a Gradient 89.8 Oxyhemoglobin 97.4 Carboxyhemoglobin Methemoglobin Reduced Hemoglobin Total Hemoglobin 15.5 O2 Delivery Device Ventilator O2 Liters/Min Not Reportable Minute Volume Not Reportable Vent Rate 20 Vent Mode Cmv FiO2 40 Tidal Volume 450 PEEP 5 Peak Inspir Pressure Not Reportable Pressure Support Not Reportable Sodium Potassium Chloride Carbon Dioxide Anion Gap BUN Creatinine Estim Creat Clear Calc Estimated GFR Glucose POC Capillary Glucose 234 H Lactic Acid 6.6 H* Calcium Phosphorus Magnesium Total Bilirubin AST ALT Alkaline Phosphatase Total Protein Albumin Lipase Urine Color Urine Appearance Urine pH Ur Specific [place] Urine Protein Urine Glucose (UA) Urine Ketones Ur Blood (Man) Urine Nitrate Urine Bilirubin Urine Urobilinogen Leukocyte Esterase Rfl Urine RBC Urine WBC Ur Squamous Epith Cells Amorphous Sediment Urine Bacteria Urine Mucus Blood Type Antibody Screen 06/06/21 06/06/21 06/06/21 18:11 21:47 23:08 WBC RBC Hgb Hct MCV MCH MCHC RDW Plt Count MPV PT INR APTT Puncture Site ABG pH ABG pCO2 ABG pO2 ABG PO2/FiO2 Ratio ABG HCO3 ABG O2 Saturation ABG O2 Content ABG Base Excess A-a Gradient Oxyhemoglobin Carboxyhemoglobin Methemoglobin Reduced Hemoglobin Total Hemoglobin O2 Delivery Device O2 Liters/Mi
[2021-06-07 08:30] LABS: Reflex Lactic Acid Yes or No Add Lactic
[2021-06-07] MEDS: MAGNESIUM SULF 2 GM/WATER 50ML 2 GM/50 ML BAG IVPB (08:50)
[2021-06-07] MEDS: INSULIN HUMAN REGULAR (*BKC) 100 UNITS/ML IV PUSH (09:04)
[2021-06-07] MEDS: DEXTROSE 50% 25 GM/50 ML SYRINGE IV PUSH (09:04)
[2021-06-07] MEDS: FLUCONAZOLE 400 MG/NACL 200 ML 400 MG/200 ML BAG 100 MG IVPB (09:05)
[2021-06-07] MEDS: ALBUMIN HUMAN 5% 25 GM/500 ML BTL IV CONT (09:05)
[2021-06-07] MEDS: dexmedeTOMIDine 400 MCG/100 ML 400 MCG/100 ML BAG 6.1 MCG IV CONT (09:29)
[2021-06-07] MEDS: CALCIUM GLUC 2,000 MG/NS 100ML 2,000 MG/100 ML BAG 100 MG IVPB (09:30)
[2021-06-07 09:31] LABS: Lactic Acid 4.1 mmol/L (0.7-2.1)
[2021-06-07] MEDS: ENOXAPARIN 40 MG/0.4 ML SYRINGE SUB-Q (09:31)
[2021-06-07] MEDS: MINERAL OIL/WHITE PETROLATUM OINTMENT 1 APPLIC EACH EYE ×2 (09:31→20:35)
[2021-06-07] MEDS: PANTOPRAZOLE SODIUM IV 40 MG VIAL IV PUSH (09:31)
[2021-06-07 09:32] LABS: Creatine Kinase 135 U/L (30-135)
--- NOTE | 2021-06-07 09:38 | WPDINTPN ---
Progress Note: A&P Assessment and Plan (1) Acute respiratory failure: Code(s): J96.00 - Acute respiratory failure, unspecified whether with hypoxia or hypercapnia Status: Acute Assessment and Plan: Acute Respiratory failure secondary to sepsis, perforated bowel and general anesthesia Continue full mechanical ventilation support to prevent hypoxemia/hypercarbia and end organ damage. ABG reviewed PCXR reviewed and will advance ET tube by 2 cm Vent settings reviewed Low tidal volume ventilation strategy to prevent volutrauma Sedation holiday was performed and patient quickly became tachypneic on the ventilator. This could be pain or anxiety. Patient is on fentanyl infusion which was resumed. At Precedex infusion (2) Sepsis: Qualifiers: Sepsis type: sepsis due to unspecified organism Sepsis acute organ dysfunction status: with acute organ dysfunction Severe sepsis acute organ dysfunction type: acute renal failure Acute renal failure type: with acute tubular necrosis Code(s): A41.9 - Sepsis, unspecified organism Status: Acute Assessment and Plan: Secondary to bowel perforation and incarcerated hernia, peritonitis Now status post ex lap hemicolectomy Please refer to general surgery note for details Patient has received close to 6 L of IV fluid bolus. And was given 2 additional L overnight Will continue IV fluids maintain Patient is still fairly tachycardic and although lactic acid is improving but slowly Will give 5% albumin bolus and add 25% albumin to minimize third-spacing Continue IV Zosyn and Diflucan Cultures ordered Monitor lactic acid level Blood pressure is adequate at this time and does not require vasopressors (3) Perforation bowel: Code(s): K63.1 - Perforation of intestine (nontraumatic) Status: Acute (4) Peritonitis: Code(s): K65.9 - Peritonitis, unspecified Status: Acute (5) Incarcerated hernia: Code(s): K46.0 - Unspecified abdominal hernia with obstruction, without gangrene Status: Acute (6) KALE (acute kidney injury): Code(s): N17.9 - Acute kidney failure, unspecified Status: Acute Assessment and Plan: Likely secondary to sepsis and postoperative ATN Check CK She had CT abdomen pelvis which did not show any hydronephrosis yesterday Consult nephrology Replace low calcium and magnesium Continue IV fluids with bicarb (7) Acidosis: Code(s): E87.2 - Acidosis Status: Acute Assessment and Plan: Metabolic acidosis secondary to sepsis and Kale I Continue IV fluids with bicarb Monitor BMP (8) Hyperkalemia: Code(s): E87.5 - Hyperkalemia Status: Acute Assessment and Plan: Patient on IV fluids with bicarb IV calcium ordered Insulin and D50 ordered Repeat BMP ordered later in the day (9) Sinus tachycardia: Code(s): R00.0 - Tachycardia, unspecified Status: Acute Assessment and Plan: Persistent sinus tachycardia despite volume resuscitation. Could be secondary to pain and anxiety Will give additional albumin Fentanyl infusion for pain control Check echo and EKG Additional Plan DVT prophylaxis -start Lovenox Stress ulcer prophylaxis -PPI Nutrition -NPO for now and will be resumed as per surgery Code Status - Full Code Case discussed with Dr. Henning Total Critical Care Time - 30 minutes Due to a high probability of clinically significant, life threatening deterioration, the patient required my highest level of preparedness to intervene emergently and I personally spent this critical care time directly and personally managing the patient. This critical care time included obtaining a history; examining the patient; pulse oximetry; ordering and review of studies; arranging urgent treatment with development of a management plan; evaluation of patient's response to treatment; frequent reassessment; and discussions with other providers. It was exclusive of se
[2021-06-07 10:07] LABS: Glucose Point of Care 213 mg/dl (65-105)
[2021-06-07] MEDS: INSULIN ASPART (*BKC) 100 UNITS/ML SUB-Q (10:08)
--- NOTE | 2021-06-07 10:51 | PM.PNGS ---
Progress Note: A&P Assessment and Plan (1) Perforation bowel: Code(s): K63.1 - Perforation of intestine (nontraumatic) Status: Acute Assessment and Plan: status post right hemicolectomy yesterday. Wound looks good. Patient critically ill which is not unexpected. Will start dressing changes today. Discussed with track grinder operator. Possibly may be extubated later today. (2) Fecal peritonitis: Code(s): K65.8 - Other peritonitis Status: Acute (3) Acute bowel infarction: Code(s): K55.069 - Acute infarction of intestine, part and extent unspecified Status: Acute (4) Incarcerated hernia: Code(s): K46.0 - Unspecified abdominal hernia with obstruction, without gangrene Status: Acute Assessment and Plan: Multiple hernias, all were repaired. Right upper quadrant hernia was the site of bowel infarction and perforation hepatic flexure colon. (5) Sepsis: Qualifiers: Sepsis type: sepsis due to unspecified organism Sepsis acute organ dysfunction status: with acute organ dysfunction Severe sepsis acute organ dysfunction type: acute renal failure Acute renal failure type: with acute tubular necrosis Severe sepsis shock status: without septic shock Qualified Code(s): A41.9 - Sepsis, unspecified organism; R65.20 - Severe sepsis without septic shock; N17.0 - Acute kidney failure with tubular necrosis Code(s): A41.9 - Sepsis, unspecified organism Status: Acute Assessment and Plan: With significant acute kidney injury, oliguria and respiratory failure. (6) TEOFILO (acute kidney injury): Code(s): N17.9 - Acute kidney failure, unspecified Status: Acute Assessment and Plan: Oliguric, receiving considerable fluid. (7) Acute respiratory failure: Qualifiers: Respiratory failure complication: hypercapnia Qualified Code(s): J96.02 - Acute respiratory failure with hypercapnia Code(s): J96.00 - Acute respiratory failure, unspecified whether with hypoxia or hypercapnia Status: Acute Assessment and Plan: on mechanical ventilator and sedated Subjective Subjective Date/Time Seen: 06/07/21 10:51 Post Op day: 1 Patient reports: other (Sedated on mechanical ventilator) Review of Systems Review of Systems: ROS unobtainable: Yes unobtainable due to endotracheal tube Exam GI: Inspection: no abdominal wall ecchymosis, non-distended, incision ( dressing dry and intact, incision looks good.), obesity, no visible herniation and other ( Right upper quadrant CAMILA drain shows cloudy serosanguineous fluid) GI Palp: Yes Firmness to palpation present (GI), No Hernia present and No Palpable mass present Auscultation: absent bowel sounds Objective Data Vital Signs Vital Signs: Vital Signs - 24 hr 06/06/21 13:45 06/06/21 14:00 06/06/21 14:16 Temperature 36.9 C Pulse Rate 112 H 125 H 130 H Respiratory Rate 26 H 24 H Blood Pressure 199/98 H Pulse Oximetry 99 99 06/06/21 15:05 06/06/21 16:00 06/06/21 16:57 Temperature 36.6 C Pulse Rate 114 H 110 H 112 H Respiratory Rate 20 24 H Blood Pressure 82/63 L Pulse Oximetry 100 99 06/06/21 17:05 06/06/21 18:00 06/06/21 19:08 Temperature Pulse Rate 114 H 112 H 116 H Respiratory Rate 20 28 H Blood Pressure 76/59 L Pulse Oximetry 97 99 06/06/21 20:00 06/06/21 20:45 06/06/21 21:00 Temperature 37.3 C Pulse Rate 124 H 122 H 124 H Respiratory Rate 28 H 28 H Blood Pressure 91/65 L Pulse Oximetry 97 96 06/06/21 21:30 06/06/21 22:00 06/06/21 23:14 Temperature Pulse Rate 131 H 126 H 120 H Respiratory Rate 28 H 24 H Blood Pressure 93/58 L Pulse Oximetry 97 97 06/07/21 00:00 06/07/21 00:25 06/07/21 02:00 Temperature 37.4 C 37.4 C Pulse Rate 125 H 125 H 125 H Respiratory Rate 26 H 28 H 24 H Blood Pressure 96/66 L 91/65 L Pulse Oximetry 96 96 06/07/21 03:00 06/07/21 04:00 06/07/21 05:56 Temperature 37.4 C
--- NOTE | 2021-06-07 11:42 | W.PM.PROC2 ---
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 Surgeon Luisito Henning MD Nitrocellulose Operator Ngoc Flynn [facility] Anesthesia general Indications patient is a 46-year-old woman who has a remote history of diverticulitis and pelvic abscess. She underwent sigmoidectomy and Joana procedure. Some small bowel attached to the abscess was gangrenous and small-bowel resection was performed as well. She recovered from this and a few months later underwent laparoscopic colostomy closure. Two or 3 years after that, she developed multiple hernias and underwent a Marlex mesh underlay repair. Her hernias recurred and she presented to the emergency room early on the day of surgery with severe abdominal pain, incarcerated hernias, rising lactate level, and evidence of colon infarction in the right upper quadrant hernia on CT scan. She is taken emergently to the operating room for bowel resection and hernia repair. Findings There were hernias in the left lower quadrant as well as the main hernia in the right upper quadrant. The left lower quadrant did not involve any bowel ischemia. The right upper quadrant was the source of bowel infarction and perforation due to incarcerated hernia. There was leakage of liquid stool largely limited to the right upper quadrant in reducing the associated hernia. Extensive adhesiolysis throughout the surgery was required. Nearly all of the mesh was well incorporated and the only mesh excised was at the 2 edges of the midline incision. No additional mesh was placed. Hernias were repaired primarily trying to use the existing incorporated mesh. No new mesh was placed. Description of Procedure Patient was taken to the operating room and induced into general anesthesia. The entire abdomen was prepped and draped. We excised the patient's old midline scar and discarded it. Dissection was carried down through the midline fascia. We opened the fascia at the midline and noted there was mesh in place. We dissected through the mesh in enter the peritoneal cavity. We were greeted with numerous adhesions. Careful dissection freed adhesions from the anterior abdominal wall. Adhesions were taken down so that we could open the fascia of the length of the wound. This was a long midline incision involving the entire previous midline incision. From there we set about and dissected the left-sided adhesions off the anterior abdominal wall and freed some of the small bowel adhesions that were easily evident. I then changed sides with the 1st pharmaceutical assistant and began the same process on the patient's right side. The right side was of course the side of the large incarcerated right upper quadrant hernia. Marlex had been used for the mesh repair and understandably there were many adhesions associated with the mesh. No enterotomies were made. Eventually the adhesions were taken down other than those associated with the incarcerated right upper quadrant incisional hernia and the hepatic flexure. Early in the surgery, I received a call from the radiologist, Dr. Galvan, who informed me that he felt there was colon perforation and liquid feces evident in the right upper quadrant hernia. This had not been described on the tele radiology report obtained through the night. This was helpful as we were prepared for fecal spillage and soiling as we turned our attention to reducing the right upper quadrant hernia. There was a massive amount of abdominal content herniated in the right upper quadrant defect. I had to slightly enlarge the defect with the cautery to allow reduction. There was obvious evidence of gangrenous change in the wall of the colon that was incarcerated. Ryan
--- NOTE | 2021-06-07 12:31 | PM.CNNEP ---
Assessment and Plan Assessment and plan (1) TEOFILO (acute kidney injury): Code(s): N17.9 - Acute kidney failure, unspecified Status: Acute Assessment and Plan: suspect ATN from sepsis/infection and likely pre-renal factors repeat imaging without obstruction CPK okay s/p aggressive IVF resusitation replace electrolytes as needed follow trend of repeat labs and UOP remains at risk for needing STRATEGY INTERN/dialysis (2) Sepsis: Qualifiers: Acute renal failure type: with acute tubular necrosis Sepsis acute organ dysfunction status: with acute organ dysfunction Sepsis type: sepsis due to unspecified organism Severe sepsis acute organ dysfunction type: acute renal failure Severe sepsis shock status: without septic shock Qualified Code(s): A41.9 - Sepsis, unspecified organism; R65.20 - Severe sepsis without septic shock; N17.0 - Acute kidney failure with tubular necrosis Code(s): A41.9 - Sepsis, unspecified organism Status: Acute Assessment and Plan: due to bowel perforation, incarcerated hernia, and peritonitis follow culture data continue IV antibiotics follow hemodynamics (3) Acute respiratory failure: Qualifiers: Respiratory failure complication: hypercapnia Qualified Code(s): J96.02 - Acute respiratory failure with hypercapnia Code(s): J96.00 - Acute respiratory failure, unspecified whether with hypoxia or hypercapnia Status: Acute Assessment and Plan: due to sepsis and operative intervention continue ventilator support ventilator weaning as tolerated (4) Perforation bowel: Code(s): K63.1 - Perforation of intestine (nontraumatic) Status: Acute Assessment and Plan: as noted by operative findings and admission imaging presumed to be secondary to incarcerated hernia and associated bowel infarction s/p adhesiolysis, right hemicolectomy, and repair of multiple incisional hernias General Surgery following (5) Hyperkalemia: Code(s): E87.5 - Hyperkalemia Status: Acute Assessment and Plan: due to TEOFILO/ARF correcting with medical management follow trend (6) Metabolic acidosis: Code(s): E87.2 - Acidosis Status: Acute Assessment and Plan: due to TEOFILO/ARF and sepsis on bicarb fluids to compensate follow CO2 levels and adjust/wean bicarb fluids Will continue to follow. History of Present Illness Reason for Consult Consult date: 06/07/21 Reason for consult: acute renal failure Chief Complaint Chief complaint: Abdominal Pain History of Present Illness Narrative: All of the information I have obtained is from review of the electronic medical record as well as discussion with the physicians and nurses involved in her care as the patient is unable to provide me with any history as she is currently intubated and sedated. The patient is a 46-year-old female with a past medical history as outlined below who presented to [facility] Emergency room on the day of admission with severe abdominal pain. Workup and evaluation emergency room demonstrated the patient to be hemodynamically stable but in significant distress with regard to her abdominal pain. Routine blood test demonstrated an elevated white blood cell count as well as a lactic acidosis that actually worsened while she was in the emergency room. She was started on IV fluid resuscitation and a CT scan of the abdomen pelvis demonstrated 2 right upper quadrant hernias with evidence of incarceration, strangulation, and possible infarction. Given these findings general surgery was consulted and she was urgently taken to the operating room for treatment of these intra-abdominal findings. Since her admission, she successfully underwent surgical correction of the a for mentioned intra-abdominal findings and was admitted to the intensive care unit post procedure. She remained on the ventilator but was surprisingly hemo
--- NOTE | 2021-06-07 12:31 | P.CONNP_ITS ---
Assessment and Plan Assessment and plan (1) TEOFILO (acute kidney injury): Code(s): N17.9 - Acute kidney failure, unspecified Status: Acute Assessment and Plan: * suspect ATN from sepsis/infection and likely pre-renal factors * repeat imaging without obstruction * CPK okay * s/p aggressive IVF resusitation * replace electrolytes as needed * follow trend of repeat labs and UOP * remains at risk for needing [employer]/dialysis (2) Sepsis: Qualifiers: Acute renal failure type: with acute tubular necrosis Sepsis acute organ dysfunction status: with acute organ dysfunction Sepsis type: sepsis due to unspecified organism Severe sepsis acute organ dysfunction type: acute renal failure Severe sepsis shock status: without septic shock Qualified Code(s): A41.9 - Sepsis, unspecified organism; R65.20 - Severe sepsis without septic shock; N17.0 - Acute kidney failure with tubular necrosis Code(s): A41.9 - Sepsis, unspecified organism Status: Acute Assessment and Plan: * due to bowel perforation, incarcerated hernia, and peritonitis * follow culture data * continue IV antibiotics * follow hemodynamics (3) Acute respiratory failure: Qualifiers: Respiratory failure complication: hypercapnia Qualified Code(s): J96.02 - Acute respiratory failure with hypercapnia Code(s): J96.00 - Acute respiratory failure, unspecified whether with hypoxia or hypercapnia Status: Acute Assessment and Plan: * due to sepsis and operative intervention * continue ventilator support * ventilator weaning as tolerated (4) Perforation bowel: Code(s): K63.1 - Perforation of intestine (nontraumatic) Status: Acute Assessment and Plan: * as noted by operative findings and admission imaging * presumed to be secondary to incarcerated hernia and associated bowel infarc tion * s/p adhesiolysis, right hemicolectomy, and repair of multiple incisional hernias * General Surgery following (5) Hyperkalemia: Code(s): E87.5 - Hyperkalemia Status: Acute Assessment and Plan: * due to TEOFILO/ARF * correcting with medical management * follow trend (6) Metabolic acidosis: Code(s): E87.2 - Acidosis Status: Acute Assessment and Plan: * due to TEOFILO/ARF and sepsis * on bicarb fluids to compensate * follow CO2 levels and adjust/wean bicarb fluids Will continue to follow. History of Present Illness Reason for Consult Consult date: 06/07/21 Reason for consult: acute renal failure Chief Complaint Chief complaint: Abdominal Pain History of Present Illness Narrative: All of the information I have obtained is from review of the electronic medical record as well as discussion with the physicians and nurses involved in her care as the patient is unable to provide me with any history as she is currently intubated and sedated. The patient is a 46-year-old female with a past medical history as outlined below who presented to [facility] Emergency room on the day of a dmission with severe abdominal pain. Workup and evaluation emergency room demonstrated the patient to be hemodynamically stable but in significant distress with regard to her abdominal pain. Routine blood test demonstrated an elevated white blood cell count as well as a lactic acidosis that actually worsened while she was in the emergency room. She was started on IV fluid resuscitation and a CT scan of the abdomen pelvis demonstrated 2 right upper quadrant hernias with evidence of incarcerati on, strangu
[2021-06-07 14:18] LABS: Glucose Point of Care 147 mg/dl (65-105)
[2021-06-07 17:50] LABS: Glucose Point of Care 161 mg/dl (65-105)
[2021-06-07] MEDS: ALBUMIN HUMAN 25% 25 GM/100 ML 100 ML IVPB ×2 (17:51→23:55)
[2021-06-07 20:38] LABS: Glucose Point of Care 160 mg/dl (65-105)
[2021-06-07] MEDS: FENTANYL 2,500MCG/NS250ML(*CRX 2,500 MCG/250 ML BAG 17.5 MCG IV CONT (23:54)
[2021-06-08] VITALS (39 sets, daily range): BP systolic 110–142; BP diastolic 68–97; PULSE 88–122; RESP 20–21; TEMP 36.7–38.2; O2SAT 92–99
[2021-06-08] MEDS: fentaNYL CITRATE INJ (*CRX) 100 MCG/2 ML VIAL 50 MCG IV PUSH ×3 (00:57→13:19)
[2021-06-08 01:46] LABS: Glucose Point of Care 110 mg/dl (65-105)
[2021-06-08 05:49] LABS: Hematocrit 21.9 % (37.0-47.0); Hemoglobin 7.3 g/dL (12.0-15.0); Mean Corpuscular HGB Conc 33.3 g/dl (32-36); Mean Corpuscular Hemoglobin 27.8 pg (26-34); Mean Corpuscular Volume 83.3 fl (80-100); Mean Platelet Volume 9.2 fl (7.4-10.4); Platelet Count Result 112 k/mm3 (150-375); Red Blood Count 2.63 M/mm3 (4.2-5.4); Red Cell Distribution Width 15.3 % (11.5-14.5); White Blood Count 5.7 K/mm3 (4.5-10.0)
[2021-06-08] MEDS: ALBUMIN HUMAN 25% 25 GM/100 ML 100 ML IVPB (05:51)
[2021-06-08 05:57] LABS: Alveolar/Arterial O2 Gradient 49.6 mmHg; Base Excess ABG 8.5 mEq/l (+/-2.0); Carboxyhemoglobin 0.3 % THb (0-2.0); Fractional Inspired Oxygen 25 %; HCO3 ABG 32.8 mEq/l (22.0-26.0); Methemoglobin ABG 0.7 %THb (0-1.5); Oxygen Saturation ABG 95.7 % (95.0-100.0); Oxyhemoglobin 92.7 % THb (90.0-100.0); PCO2 ABG 45.5 mmHg (35.0-45.0); PO2 ABG 74.6 mmHg (80.0-100.0); PO2 FiO2 Ratio Arterial Blood 2.98 %; Reduced Hemoglobin 6.3 %THb (0-5.0); pH ABG 7.476 (7.350-7.450)
[2021-06-08 06:00] LABS: Arterial Blood Gas Vent Mode CMV; Arterial Blood Gas Ventilator rate 20 /MIN; Device VENTILATOR; Modified Allen's Test Pass; Site Drawn LEFT RADIAL
[2021-06-08 06:01] LABS: Arterial Blood Gas PEEP 5 cmH2O; Arterial Blood Gas Tidal Volume 450 ml
[2021-06-08 06:14] LABS: Alanine Aminotransferase 12 U/L (4-35); Albumin Level 2.7 g/dL (3.5-5.1); Alkaline Phosphatase 46 U/L (38-126); Anion Gap 11 mmol/L (8-16); Aspartate Amino Transferase 26 U/L (14-36); Bilirubin,Total 0.8 mg/dL (0.2-1.3); Blood Urea Nitrogen 41 mg/dL (7-17); Calcium 6.7 mg/dL (8.4-10.2); Carbon Dioxide 35 mmol/L (22-30); Chloride 90 mmol/L (98-107); Estimated CRCL calculation 27 ml/min; Estimated Glomerular Filt Rate 17; Glucose 167 mg/dL (65-110); Magnesium 1.4 mg/dL (1.6-2.3); Phosphorus 5.1 mg/dL (2.5-4.5); Potassium 3.5 mmol/L (3.4-5.0); Sodium 136 mmol/L (137-145)
[2021-06-08] MEDS: SODIUM BICARBONATE 8.4% 150 MEQ in WATER, STERILE FOR INJECTION 950 ML IV CONT (07:32)
[2021-06-08 08:27] LABS: Hematocrit 22.1 % (37.0-47.0); Hemoglobin 7.2 g/dL (12.0-15.0)
[2021-06-08 08:39] LABS: INR 1.5; Prothrombin Time 18.2 Seconds (11.1-14.7)
[2021-06-08 08:40] LABS: Partial Thromboplastin Time 41.5 SECONDS (22.3-36.8)
[2021-06-08 09:03] LABS: Fibrinogen 477 mg/dl (215-510)
[2021-06-08] MEDS: MAGNESIUM SULF 2 GM/WATER 50ML 2 GM/50 ML BAG IVPB (09:10)
[2021-06-08] MEDS: CALCIUM GLUC 2,000 MG/NS 100ML 2,000 MG/100 ML BAG 100 MG IVPB (09:10)
[2021-06-08] MEDS: SODIUM CHLORIDE 0.9% IV 1,000 ML 75 ML IV CONT ×2 (09:11→22:29)
[2021-06-08] MEDS: PANTOPRAZOLE SODIUM IV 40 MG VIAL IV PUSH ×2 (09:29→19:57)
[2021-06-08] MEDS: FLUCONAZOLE 400 MG/NACL 200 ML 400 MG/200 ML BAG 100 MG IVPB (09:29)
[2021-06-08] MEDS: MINERAL OIL/WHITE PETROLATUM OINTMENT 1 APPLIC EACH EYE ×2 (09:29→19:57)
--- NOTE | 2021-06-08 09:57 | WPDINTPN ---
Progress Note: A&P Assessment and Plan (1) Acute respiratory failure: Qualifiers: Respiratory failure complication: hypercapnia Qualified Code(s): J96.02 - Acute respiratory failure with hypercapnia Code(s): J96.00 - Acute respiratory failure, unspecified whether with hypoxia or hypercapnia Status: Acute Assessment and Plan: Acute Respiratory failure secondary to sepsis, perforated bowel and general anesthesia Continue full mechanical ventilation support to prevent hypoxemia/hypercarbia and end organ damage. ABG reviewed PCXR reviewed Vent settings reviewed Low tidal volume ventilation strategy to prevent volutrauma Will perform a sedation holiday and weaning trial today (2) Sepsis: Qualifiers: Sepsis type: sepsis due to unspecified organism Sepsis acute organ dysfunction status: with acute organ dysfunction Severe sepsis acute organ dysfunction type: acute renal failure Acute renal failure type: with acute tubular necrosis Severe sepsis shock status: without septic shock Qualified Code(s): A41.9 - Sepsis, unspecified organism; R65.20 - Severe sepsis without septic shock; N17.0 - Acute kidney failure with tubular necrosis Code(s): A41.9 - Sepsis, unspecified organism Status: Acute Assessment and Plan: Secondary to bowel perforation and incarcerated hernia, peritonitis Now status post ex lap hemicolectomy Please refer to general surgery note for details Patient has received significant amount of IV fluids but likely is third-spacing. will decrease IV Rule fluid rate at this time continue 25% albumin to minimize third-spacing Continue IV Zosyn and Diflucan Cultures ordered and are pending Monitor lactic acid level Blood pressure is adequate at this time and does not require vasopressors (3) Anemia: Code(s): D64.9 - Anemia, unspecified Status: Acute Assessment and Plan: hemoglobin dropped to 7.2 this morning which was confirmed by repeat. hemoglobin was 12.7 yesterday morning no obvious evidence of bleeding as patient has a non bloody NG output, no bowel movement with blood in it and no bruising on the skin coags checked and they are unremarkable this could be dilutional as sedation has not received significant amount of IV fluids will transfuse 1 unit of packed red cells at this time large drop start serial hemoglobin monitoring change PPI to IV q.[address] abdomen pelvis as patient is morbidly obese and exam is not very helpful DC Lovenox and switch to SCDs for now (4) TEOFILO (acute kidney injury): Code(s): N17.9 - Acute kidney failure, unspecified Status: Acute Assessment and Plan: Likely secondary to sepsis and postoperative ATN Normal CK She had CT abdomen pelvis which did not show any hydronephrosis yesterday Consulted nephrology Replace low calcium and magnesium Continue IV fluids but decrease rate urine output is improving (5) Perforation bowel: Code(s): K63.1 - Perforation of intestine (nontraumatic) Status: Acute (6) Peritonitis: Code(s): K65.9 - Peritonitis, unspecified Status: Acute (7) Incarcerated hernia: Code(s): K46.0 - Unspecified abdominal hernia with obstruction, without gangrene Status: Acute (8) Acidosis: Code(s): E87.2 - Acidosis Status: Acute Assessment and Plan: patient now alkalotic bicarb IV fluids changed to normal saline (9) Hyperkalemia: Code(s): E87.5 - Hyperkalemia Status: Acute Assessment and Plan: improved after treatment with insulin D50 calcium and bicarb (10) Sinus tachycardia: Code(s): R00.0 - Tachycardia, unspecified Status: Acute Assessment and Plan: Persistent sinus tachycardia despite volume resuscitation. Could be secondary to pain and anxiety improving now Fentanyl infusion for pain control echo Summary 1. Complete two-dimensional, color flow and Dop
[2021-06-08 10:35] LABS: Glucose Point of Care 151 mg/dl (65-105)
[2021-06-08 10:36] LABS: Glucose Point of Care 157 mg/dl (65-105)
--- NOTE | 2021-06-08 11:47 | PM.PNNEP ---
Progress Note: A&P Assessment and Plan (1) TEOFILO (acute kidney injury): Code(s): N17.9 - Acute kidney failure, unspecified Status: Acute Assessment and Plan: suspect ATN from sepsis/infection and likely pre-renal factors repeat imaging without obstruction CPK okay s/p aggressive IVF resusitation replace electrolytes as needed follow trend of repeat labs and UOP (2) Sepsis: Qualifiers: Sepsis type: sepsis due to unspecified organism Sepsis acute organ dysfunction status: with acute organ dysfunction Severe sepsis acute organ dysfunction type: acute renal failure Acute renal failure type: with acute tubular necrosis Severe sepsis shock status: without septic shock Qualified Code(s): A41.9 - Sepsis, unspecified organism; R65.20 - Severe sepsis without septic shock; N17.0 - Acute kidney failure with tubular necrosis Code(s): A41.9 - Sepsis, unspecified organism Status: Acute Assessment and Plan: due to bowel perforation, incarcerated hernia, and peritonitis follow culture data continue IV antibiotics follow hemodynamics (3) Acute respiratory failure: Qualifiers: Respiratory failure complication: hypercapnia Qualified Code(s): J96.02 - Acute respiratory failure with hypercapnia Code(s): J96.00 - Acute respiratory failure, unspecified whether with hypoxia or hypercapnia Status: Acute Assessment and Plan: due to sepsis and operative intervention continue ventilator support ventilator weaning as tolerated (4) Perforation bowel: Code(s): K63.1 - Perforation of intestine (nontraumatic) Status: Acute Assessment and Plan: as noted by operative findings and admission imaging presumed to be secondary to incarcerated hernia and associated bowel infarction s/p adhesiolysis, right hemicolectomy, and repair of multiple incisional hernias General Surgery following (5) Hyperkalemia: Code(s): E87.5 - Hyperkalemia Status: Acute Assessment and Plan: due to TEOFILO/ARF correcting with medical management follow trend (6) Metabolic acidosis: Code(s): E87.2 - Acidosis Status: Acute Assessment and Plan: due to TEOFILO/ARF and sepsis was on bicarb fluids to compensate follow CO2 levels Will continue to follow. Subjective Date/time seen: 06/08/21 11:47 Remains on ventilator support but hemodynamically stable without the need for pressor therapy; renal function slightly worse but better urine output noted in the last 24 hours; no other issues/events overnight or earlier this AM. Exam Narrative: General: ill appearing female intubated Heart: normal S1 and S2; no rub; tachycardic Lungs: coarse breath sounds Abdomen: soft with TTP; dressings noted; hypoactive bowel sounds Extremities: no cyanosis or clubbing; no edema Skin: warm and dry Objective Data Vital Signs Vital Signs: Vital Signs Temp Pulse Resp BP Pulse Ox 06/08/21 11:20 103 H 95 06/08/21 10:00 108 H 20 123/68 95 06/08/21 09:45 115 H 95 06/08/21 09:00 113 H 20 06/08/21 08:00 37.6 C 109 H 20 119/82 96 06/08/21 07:34 112 H 20 06/08/21 06:00 115 H 06/08/21 05:49 116 H 20 123/78 96 06/08/21 05:19 119 H 96 06/08/21 04:00 36.9 C 114 H 20 123/79 94 06/08/21 02:00 122 H 20 142/78 H 96 06/08/21 01:39 117 H 94 06/08/21 00:00 113 H 96 06/07/21 23:54 112 H 20 06/07/21 23:53 37.3 C 113 H 20 119/75 95 06/07/21 23:17 110 H 96 06/07/21 22:35 115 H 97 06/07/21 22:00 115 H 20 127/83 97 06/07/21 21:30 112 H 20 06/07/21 20:20 115 H 98 06/07/21 20:00 37.1 C 111 H 20 119/69 98 06/07/21 18:00 114 H 19 105/65 96 06/07/21 17:11 106 H 21 H 06/07/21 16:55 105 H 98 06/07/21 16:00 37.2 C 103 H 21 H 103/67 98 06/07/21 14:44 106 H 98 06/07/21 14:00 109 H 21 H
--- NOTE | 2021-06-08 11:47 | P.PNNP_ITS ---
Progress Note: A&P Assessment and Plan (1) TEOFILO (acute kidney injury): Code(s): N17.9 - Acute kidney failure, unspecified Status: Acute Assessment and Plan: * suspect ATN from sepsis/infection and likely pre-renal factors * repeat imaging without obstruction * CPK okay * s/p aggressive IVF resusitation * replace electrolytes as needed * follow trend of repeat labs and UOP (2) Sepsis: Qualifiers: Sepsis type: sepsis due to unspecified organism Sepsis acute organ dysfunction status: with acute organ dysfunction Severe sepsis acute organ dysfunction type: acute renal failure Acute renal failure type: with acute tubular necrosis Severe sepsis shock status: without septic shock Qualified Code(s): A41.9 - Sepsis, unspecified organism; R65.20 - Severe sepsis without septic shock; N17.0 - Acute kidney failure with tubular necrosis Code(s): A41.9 - Sepsis, unspecified organism Status: Acute Assessment and Plan: * due to bowel perforation, incarcerated hernia, and peritonitis * follow culture data * continue IV antibiotics * follow hemodynamics (3) Acute respiratory failure: Qualifiers: Respiratory failure complication: hypercapnia Qualified Code(s): J96.02 - Acute respiratory failure with hypercapnia Code(s): J96.00 - Acute respiratory failure, unspecified whether with hypoxia or hypercapnia Status: Acute Assessment and Plan: * due to sepsis and operative intervention * continue ventilator support * ventilator weaning as tolerated (4) Perforation bowel: Code(s): K63.1 - Perforation of intestine (nontraumatic) Status: Acute Assessment and Plan: * as noted by operative findings and admission imaging * presumed to be secondary to incarcerated hernia and associated bowel infarction * s/p adhesiolysis, right hemicolectomy, and repair of multiple incisional hernias * General Surgery following (5) Hyperkalemia: Code(s): E87.5 - Hyperkalemia Status: Acute Assessment and Plan: * due to TEOFILO/ARF * correcting with medical management * follow trend (6) Metabolic acidosis: Code(s): E87.2 - Acidosis Status: Acute Assessment and Plan: * due to TEOFILO/ARF and sepsis * was on bicarb fluids to compensate * follow CO2 levels Will continue to follow. Subjective Date/time seen: 06/08/21 11:47 Remains on ventilator support but hemodynamically stable without the need for pressor therapy; renal function slightly worse but better urine output noted in the last 24 hours; no other issues/events overnight or earlier this AM. Exam Narrative: General: ill appearing female intubated Heart: normal S1 and S2; no rub; tachycardic Lungs: coarse breath sounds Abdomen: soft with TTP; dressings noted; hypoactive bowel sounds Extremities: no cyanosis or clubbing; no edema Skin: warm and dry Objective Data Vital Signs Vital Signs: Vital Signs Temp Pulse Resp BP Pulse Ox 06/08/21 11:20 103 H 95 06/08/21 10:00 108 H 20 123/68 95 06/08/21 09:45 115 H 95 06/08/21 09:00 113 H 20 06/08/21 08:00 37.6 C 109 H 20 119/82 96 06/08/21 07:34 112 H 20 06/08/21 06:00 115 H 06/08/21 05:49 116 H 20 123/78 96 06/08/21 05:19 119 H 96 06/08/21 04:00 36.9 C 114 H 20
[2021-06-08 11:50] LABS: Glucose Point of Care 135 mg/dl (65-105)
[2021-06-08 11:55] LABS: Hematocrit 21.3 % (37.0-47.0)
[2021-06-08 12:00] LABS: Hemoglobin 6.9 g/dL (12.0-15.0)
[2021-06-08] MEDS: SODIUM CHLORIDE 0.9% IV 250 ML 30 ML IV CONT ×2 (12:35→15:14)
[2021-06-08] MEDS: dexmedeTOMIDine 400 MCG/100 ML 400 MCG/100 ML BAG 5.45 MCG IV CONT (14:01)
[2021-06-08] MEDS: FENTANYL 2,500MCG/NS250ML(*CRX 2,500 MCG/250 ML BAG 20 MCG IV CONT (14:16)
[2021-06-08] MEDS: PROPOFOL IV EMULSION 100 ML 3.27 MG IV CONT (14:31)
[2021-06-08 14:38] LABS: Glucose Point of Care 137 mg/dl (65-105)
--- NOTE | 2021-06-08 15:33 | PM.PNGS ---
Progress Note: A&P Assessment and Plan (1) Incarcerated hernia: Code(s): K46.0 - Unspecified abdominal hernia with obstruction, without gangrene Status: Acute Assessment and Plan: significant drop in H/H, no evidence of intraabdominal bleeding, CT reviewed, exam benign, cont to monitor and currently being transfused 2 units, will start trophic feed thru NG Subjective Subjective Date/Time Seen: 06/08/21 15:33 events noted, still intubated, but quite awake, active Review of Systems Review of Systems: ROS unobtainable: Yes unobtainable due to medical condition Exam Const: General: anxious and ill appearing Limitations: other limitations Resp: Effort & Inspection: normal respiratory effort Auscultation: diminished lung sounds Cardio: Rate: tachycardic Rhythm: regular rhythm GI: Inspection: normal to inspection and distended GI Palp: Yes Soft to palpation, Yes Tenderness to palpation present (GI), No Guarding due to palpation present (GI) and No Rigid due to palpation Other: incision C/D/I, CAMILA s/s Objective Data Vital Signs Vital Signs: Vital Signs - 24 hr 06/07/21 16:00 06/07/21 16:55 06/07/21 17:11 Temperature 37.2 C Pulse Rate 103 H 105 H 106 H Respiratory Rate 21 H 21 H Blood Pressure 103/67 Pulse Oximetry 98 98 06/07/21 18:00 06/07/21 20:00 06/07/21 20:20 Temperature 37.1 C Pulse Rate 114 H 111 H 115 H Respiratory Rate 19 20 Blood Pressure 105/65 119/69 Pulse Oximetry 96 98 98 06/07/21 21:30 06/07/21 22:00 06/07/21 22:35 Temperature Pulse Rate 112 H 115 H 115 H Respiratory Rate 20 20 Blood Pressure 127/83 Pulse Oximetry 97 97 06/07/21 23:17 06/07/21 23:53 06/07/21 23:54 Temperature 37.3 C Pulse Rate 110 H 113 H 112 H Respiratory Rate 20 20 Blood Pressure 119/75 Pulse Oximetry 96 95 06/08/21 00:00 06/08/21 01:39 06/08/21 02:00 Temperature Pulse Rate 113 H 117 H 122 H Respiratory Rate 20 Blood Pressure 142/78 H Pulse Oximetry 96 94 96 06/08/21 04:00 06/08/21 05:19 06/08/21 05:49 Temperature 36.9 C Pulse Rate 114 H 119 H 116 H Respiratory Rate 20 20 Blood Pressure 123/79 123/78 Pulse Oximetry 94 96 96 06/08/21 06:00 06/08/21 07:00 06/08/21 07:34 Temperature Pulse Rate 115 H 107 H 112 H Respiratory Rate 20 Blood Pressure Pulse Oximetry 06/08/21 08:00 06/08/21 09:00 06/08/21 09:45 Temperature 37.6 C Pulse Rate 109 H 113 H 115 H Respiratory Rate 20 20 Blood Pressure 119/82 Pulse Oximetry 96 95 06/08/21 10:00 06/08/21 11:00 06/08/21 11:20 Temperature Pulse Rate 108 H 106 H 103 H Respiratory Rate 20 20 Blood Pressure 123/68 Pulse Oximetry 95 95 06/08/21 12:00 06/08/21 12:36 06/08/21 12:50 Temperature 38.1 C H 37.6 C 38.1 C H Pulse Rate 103 H 99 99 Respiratory Rate 20 20 20 Blood Pressure 118/75 122/75 115/83 Pulse Oximetry 95 96 96 06/08/21 13:50 06/08/21 14:00 06/08/21 14:01 Temperature 38.1 C H Pulse Rate 99 101 H 104 H Respiratory Rate 20 20 20 Blood Pressure 142/95 H Pulse Oximetry 96 06/08/21 14:16 06/08/21 14:19 06/08/21 14:31 Temperature Pulse Rate 104 H 98 98 Respiratory Rate 20 20 20 Blood Pressure Pulse Oximetry 06/08/21 14:50 06/08/21 15:14 Temperature 38.1 C H 38.2 C H Pulse Rate 97 91 Respiratory Rate 20 20 Blood Pressure 133/77 135/74 Pulse Oximetry 99 96 Intake/Output Intake/Output: Intake & Output 06/05/21 06/06/21 06/07/21 06/08/21 23:59 23:59 23:59 23:59 Intake Total 5750 5200 2792 Output Total 1025 820 990 Balance 4725 4380 1802 Meds/Results Medications: Active Medications Generic Name Dose Route Start Last Admin Trade Name Freq PRN Reason Stop Dose Admin Acetaminophen 650 mg 06/06/21 14:08 Acetaminophen 325 Mg Tablet PO Q4H PRN Mild Pain (1-3) or Fever Dextrose 12.5 gm 06/06/21 14:04 Dextrose 50% 25 Gm/50 Ml Syringe IV PUSH PRN PRN Hypoglycemia Protoc
[2021-06-08 17:35] LABS: Glucose Point of Care 127 mg/dl (65-105)
[2021-06-08 19:57] LABS: Hematocrit 23.9 % (37.0-47.0); Hemoglobin 7.9 g/dL (12.0-15.0)
[2021-06-08 21:03] LABS: Glucose Point of Care 130 mg/dl (65-105)
[2021-06-09] VITALS (25 sets, daily range): BP systolic 111–168; BP diastolic 64–99; PULSE 81–110; RESP 20–30; TEMP 36.9–37.7; O2SAT 93–98
[2021-06-09 00:17] LABS: Glucose Point of Care 134 mg/dl (65-105)
[2021-06-09] MEDS: PROPOFOL IV EMULSION 100 ML 6.54 MG IV CONT (00:37)
[2021-06-09] MEDS: FENTANYL 2,500MCG/NS250ML(*CRX 2,500 MCG/250 ML BAG 20 MCG IV CONT (02:52)
[2021-06-09 05:46] LABS: Hematocrit 25.5 % (37.0-47.0); Hemoglobin 8.2 g/dL (12.0-15.0); Mean Corpuscular HGB Conc 32.2 g/dl (32-36); Mean Corpuscular Hemoglobin 28.1 pg (26-34); Mean Corpuscular Volume 87.3 fl (80-100); Mean Platelet Volume 9.8 fl (7.4-10.4); Platelet Count Result 120 k/mm3 (150-375); Red Blood Count 2.92 M/mm3 (4.2-5.4); Red Cell Distribution Width 15.1 % (11.5-14.5); White Blood Count 8.2 K/mm3 (4.5-10.0)
[2021-06-09 05:58] LABS: Alanine Aminotransferase 12 U/L (4-35); Alkaline Phosphatase 64 U/L (38-126); Anion Gap 7 mmol/L (8-16); Aspartate Amino Transferase 23 U/L (14-36); Blood Urea Nitrogen 37 mg/dL (7-17); Calcium 7.5 mg/dL (8.4-10.2); Carbon Dioxide 32 mmol/L (22-30); Chloride 96 mmol/L (98-107); Estimated CRCL calculation 35 ml/min; Estimated Glomerular Filt Rate 22; Glucose 142 mg/dL (65-110); Magnesium 2.3 mg/dL (1.6-2.3); Phosphorus 3.8 mg/dL (2.5-4.5); Potassium 3.2 mmol/L (3.4-5.0); Sodium 135 mmol/L (137-145)
[2021-06-09 06:05] LABS: PCO2 ABG 25.5 mmHg (35.0-45.0); pH ABG 7.645 (7.350-7.450)
[2021-06-09 06:06] LABS: Base Excess ABG 7.5 mEq/l (+/-2.0)
[2021-06-09 06:09] LABS: Alveolar/Arterial O2 Gradient 4.9 mmHg
[2021-06-09 06:10] LABS: Device VENTILATOR; Fractional Inspired Oxygen 25 %; Modified Allen's Test Pass; Site Drawn LEFT RADIAL
[2021-06-09 06:11] LABS: Arterial Blood Gas Ventilator rate 20 /MIN
[2021-06-09 06:12] LABS: Arterial Blood Gas PEEP 5 cmH2O; Arterial Blood Gas Tidal Volume 450 ml; Arterial Blood Gas Vent Mode CMV
[2021-06-09] MEDS: PANTOPRAZOLE SODIUM IV 40 MG VIAL IV PUSH ×2 (09:02→20:41)
[2021-06-09] MEDS: MINERAL OIL/WHITE PETROLATUM OINTMENT 1 APPLIC EACH EYE (09:02)
[2021-06-09 09:10] LABS: Glucose Point of Care 139 mg/dl (65-105)
[2021-06-09] MEDS: FLUCONAZOLE 400 MG/NACL 200 ML 400 MG/200 ML BAG 100 MG IVPB (09:10)
--- NOTE | 2021-06-09 09:23 | PC.NURSE ---
Sedation paused Fentanyl at 0745, and propofol at 0800 for sedation vacation and SPONT/CPAP vent trial per physicians orders.
--- NOTE | 2021-06-09 09:30 | WPDINTPN ---
Progress Note: A&P Assessment and Plan (1) Acute respiratory failure: Qualifiers: Respiratory failure complication: hypercapnia Qualified Code(s): J96.02 - Acute respiratory failure with hypercapnia Code(s): J96.00 - Acute respiratory failure, unspecified whether with hypoxia or hypercapnia Status: Acute Assessment and Plan: Acute Respiratory failure secondary to sepsis, perforated bowel and general anesthesia I have placed patient on 10/24 PSV trial. I will plan to extubate if does well ABG reviewed this morning and ventilator was adjusted by decreasing tidal volume and respiratory rate PCXR reviewed and will advance ET tube by 2 cm if patient is unable to be extubated Vent settings reviewed Low tidal volume ventilation strategy to prevent volutrauma (2) Sepsis: Qualifiers: Sepsis type: sepsis due to unspecified organism Sepsis acute organ dysfunction status: with acute organ dysfunction Severe sepsis acute organ dysfunction type: acute renal failure Acute renal failure type: with acute tubular necrosis Severe sepsis shock status: without septic shock Qualified Code(s): A41.9 - Sepsis, unspecified organism; R65.20 - Severe sepsis without septic shock; N17.0 - Acute kidney failure with tubular necrosis Code(s): A41.9 - Sepsis, unspecified organism Status: Acute Assessment and Plan: Secondary to bowel perforation and incarcerated hernia, peritonitis Now status post ex lap hemicolectomy Please refer to general surgery note for details Patient has received significant amount of IV fluids but likely is third-spacing. will decrease IV Rule fluid rate at this time received 25% albumin Continue IV Zosyn and Diflucan Cultures ordered and are negative for now Blood pressure is adequate at this time and does not require vasopressors (3) Anemia: Code(s): D64.9 - Anemia, unspecified Status: Acute Assessment and Plan: patient had drop in her hemoglobin yesterday and was given 2 units of PRBC no obvious evidence of bleeding as patient has a non bloody NG output, no bowel movement with blood in it and no bruising on the skin coags checked and they are unremarkable this could be dilutional as sedation has not received significant amount of IV fluids CT abdomen pelvis was checked and did not show any retroperitoneal hemorrhage continue monitoring continue PPI IV q.12 hours continue to hold Lovenox and switch to SCDs for now (4) TEOFILO (acute kidney injury): Code(s): N17.9 - Acute kidney failure, unspecified Status: Acute Assessment and Plan: Likely secondary to sepsis and postoperative ATN Normal CK She had CT abdomen pelvis which did not show any hydronephrosis yesterday Nephrology is following. Creatinine is improving urine output has improved Replace low potassium Continue IV fluids but decrease rate Monitor urine output electrolytes and creatinine (5) Perforation bowel: Code(s): K63.1 - Perforation of intestine (nontraumatic) Status: Acute (6) Peritonitis: Code(s): K65.9 - Peritonitis, unspecified Status: Acute (7) Incarcerated hernia: Code(s): K46.0 - Unspecified abdominal hernia with obstruction, without gangrene Status: Acute (8) Acidosis: Code(s): E87.2 - Acidosis Status: Acute Assessment and Plan: patient now alkalotic both respiratory and metabolic bicarb IV fluids has been changed to normal saline ventilator was adjusted this point. currently on weaning trial (9) Sinus tachycardia: Code(s): R00.0 - Tachycardia, unspecified Status: Acute Assessment and Plan: Persistent sinus tachycardia despite volume resuscitation. Could be secondary to pain and anxiety improving now Fentanyl infusion for pain control echo Summary 1. Complete two-dimensional, color flow and Doppler transthoracic echocardiogram is performed. 2. Technically
[2021-06-09 09:50] LABS: Alveolar/Arterial O2 Gradient 51.7 mmHg; Base Excess ABG 5.8 mEq/l (+/-2.0); Fractional Inspired Oxygen 25 %; HCO3 ABG 29.9 mEq/l (22.0-26.0); Oxygen Content ABG 12.9 %vol (16.0-22.0); Oxygen Saturation ABG 96.1 % (95.0-100.0); Oxyhemoglobin 93.6 % THb (90.0-100.0); PCO2 ABG 41.8 mmHg (35.0-45.0); PO2 ABG 76.9 mmHg (80.0-100.0); PO2 FiO2 Ratio Arterial Blood 3.08 %; Total Hemoglobin 9.7 g/dL (12.0-18.0); pH ABG 7.473 (7.350-7.450)
[2021-06-09 09:51] LABS: Device VENTILATOR; Modified Allen's Test Pass; Site Drawn LEFT RADIAL
[2021-06-09 09:52] LABS: Arterial Blood Gas PEEP 5 cmH2O; Arterial Blood Gas Pressure Support 5 cmH2O; Arterial Blood Gas Vent Mode SPONTANEOUS
--- NOTE | 2021-06-09 10:03 | PM.PNGS ---
Progress Note: A&P Assessment and Plan (1) Incarcerated hernia: Code(s): K46.0 - Unspecified abdominal hernia with obstruction, without gangrene Status: Acute Assessment and Plan: better overall, plan to extubate today, possibly start clears if extubated Subjective Subjective Date/Time Seen: 06/09/21 10:03 no acute issues overnight, received 2 units PRBCs yesterday, nohemi trophic feeds thru NG Review of Systems Review of Systems: ROS unobtainable: Yes unobtainable due to endotracheal tube Exam Const: Limitations: physical limitations Other: intubated, awake and following commands Resp: Effort & Inspection: normal respiratory effort Auscultation: clear to auscultation bilaterally Cardio: Rate: regular rate Rhythm: regular rhythm GI: Inspection: normal to inspection, distended and incision GI Palp: Yes Soft to palpation and Yes Tenderness to palpation present (GI) Other: CAMILA c serous drainage Objective Data Vital Signs Vital Signs: Vital Signs - 24 hr 06/08/21 11:00 06/08/21 11:20 06/08/21 12:00 Temperature 38.1 C H Pulse Rate 106 H 103 H 105 H Respiratory Rate 20 20 Blood Pressure 118/75 Pulse Oximetry 95 95 06/08/21 12:36 06/08/21 12:50 06/08/21 13:50 Temperature 37.6 C 38.1 C H 38.1 C H Pulse Rate 99 99 99 Respiratory Rate 20 20 20 Blood Pressure 122/75 115/83 142/95 H Pulse Oximetry 96 96 96 06/08/21 14:00 06/08/21 14:01 06/08/21 14:16 Temperature Pulse Rate 101 H 104 H 104 H Respiratory Rate 20 20 20 Blood Pressure 141/97 H Pulse Oximetry 98 06/08/21 14:19 06/08/21 14:31 06/08/21 14:50 Temperature 38.1 C H Pulse Rate 98 98 97 Respiratory Rate 20 20 20 Blood Pressure 133/77 Pulse Oximetry 99 06/08/21 15:14 06/08/21 15:29 06/08/21 16:00 Temperature 38.2 C H 38.1 C H 38.1 C H Pulse Rate 91 94 91 Respiratory Rate 20 20 20 Blood Pressure 135/74 133/77 119/71 Pulse Oximetry 96 95 95 06/08/21 16:29 06/08/21 16:37 06/08/21 17:03 Temperature 38.1 C H 38.1 C H Pulse Rate 89 104 H 90 Respiratory Rate 20 20 Blood Pressure 110/74 111/75 Pulse Oximetry 96 92 95 06/08/21 17:47 06/08/21 17:49 06/08/21 18:00 Temperature 38.0 C H Pulse Rate 94 90 91 Respiratory Rate 20 20 20 Blood Pressure 114/73 Pulse Oximetry 94 06/08/21 18:30 06/08/21 20:00 06/08/21 20:39 Temperature 36.7 C Pulse Rate 94 95 91 Respiratory Rate 21 H Blood Pressure 113/77 Pulse Oximetry 95 94 95 06/08/21 22:00 06/08/21 23:23 06/09/21 00:00 Temperature 37.1 C Pulse Rate 90 88 88 Respiratory Rate 20 26 H Blood Pressure 121/76 117/75 Pulse Oximetry 95 95 95 06/09/21 00:37 06/09/21 00:59 06/09/21 02:00 Temperature Pulse Rate 89 85 81 Respiratory Rate 20 20 20 Blood Pressure 111/69 Pulse Oximetry 95 06/09/21 02:20 06/09/21 02:47 06/09/21 02:52 Temperature Pulse Rate 91 81 81 Respiratory Rate 20 20 Blood Pressure Pulse Oximetry 94 06/09/21 03:40 06/09/21 04:00 06/09/21 04:52 Temperature 37.2 C Pulse Rate 82 96 Respiratory Rate 20 Blood Pressure 111/72 Pulse Oximetry 96 95 94 06/09/21 06:00 06/09/21 07:45 06/09/21 08:00 Temperature Pulse Rate 86 90 98 Respiratory Rate 27 H 20 20 Blood Pressure 133/64 168/94 H Pulse Oximetry 97 94 06/09/21 08:11 Temperature Pulse Rate 110 H Respiratory Rate Blood Pressure Pulse Oximetry 95 Intake/Output Intake/Output: Intake & Output 06/06/21 06/07/21 06/08/21 06/09/21 23:59 23:59 23:59 23:59 Intake Total 5750 5200 4242 476 Output Total 4714 190 1055 1100 Balance 4734 9171 5787 -879 Meds/Results Medications: Active Medications Generic Name Dose Route Start Last Admin Trade Name Freq PRN Reason Stop Dose Admin Acetaminophen 650 mg 06/06/21 14:08 Acetaminophen 325 Mg Tablet PO Q4H PRN Mild Pain (1-3) or Fever Dextrose 12.5 gm 06/06/21 14:04 Dextrose 50% 25 Gm/50 Ml Syringe IV PUSH PRN PRN
[2021-06-09] MEDS: POTASSIUM CHLORIDE 20 MEQ PACKET (FOR LIQUID) 40 MEQ FEED TUBE (10:16)
--- NOTE | 2021-06-09 10:22 | PC.NURSE ---
Patient extubated by RT at 1012.
[2021-06-09] MEDS: KCL 40 MEQ/WATER 100 ML 100 ML 25 ML IVPB (11:40)
--- NOTE | 2021-06-09 11:48 | P.PNNP_ITS ---
Progress Note: A&P Assessment and Plan (1) TEOFILO (acute kidney injury): Code(s): N17.9 - Acute kidney failure, unspecified Status: Acute Assessment and Plan: * suspect ATN from sepsis/infection and likely pre-renal factors * repeat imaging without obstruction * CPK okay * s/p aggressive IVF resusitation * creatinine appears to have peaked/plateaued at 3.0mg/dl * replace electrolytes as needed * follow trend of repeat labs and UOP (2) Sepsis: Qualifiers: Acute renal failure type: with acute tubular necrosis Sepsis acute organ dysfunction status: with acute organ dysfunction Sepsis type: sepsis due to unspecified organism Severe sepsis acute organ dysfunction type: acute renal failure Severe sepsis shock status: without septic shock Qualified Code(s): A41.9 - Sepsis, unspecified organism; R65.20 - Severe sepsis without septic shock; N17.0 - Acute kidney failure with tubular necrosis Code(s): A41.9 - Sepsis, unspecified organism Status: Acute Assessment and Plan: * due to bowel perforation, incarcerated hernia, and peritonitis * follow culture data * continue IV antibiotics * follow hemodynamics (3) Acute respiratory failure: Qualifiers: Respiratory failure complication: hypercapnia Qualified Code(s): J96.02 - Acute respiratory failure with hypercapnia Code(s): J96.00 - Acute respiratory failure, unspecified whether with hypoxia or hypercapnia Status: Acute Assessment and Plan: * resolving - extubated today * due to sepsis and operative intervention * follow trend of respiratory status (4) Perforation bowel: Code(s): K63.1 - Perforation of intestine (nontraumatic) Status: Acute Assessment and Plan: * as noted by operative findings and admission imaging * presumed to be secondary to incarcerated hernia and associated bowel infarction * s/p adhesiolysis, right hemicolectomy, and repair of multiple incisional casandra ias * General Surgery following (5) Hyperkalemia: Code(s): E87.5 - Hyperkalemia Status: Acute Assessment and Plan: * due to TEOFILO/ARF * corrected with medical management * follow trend (6) Metabolic acidosis: Code(s): E87.2 - Acidosis Status: Acute Assessment and Plan: * due to TEOFILO/ARF and sepsis * was on bicarb fluids to compensate (dc'd) * follow CO2 levels Will continue to follow. Subjective Date/time seen: 06/09/21 11:48 Extubated at the time of my visit; remains hemodynamically stable without the need for pressors; febrile overnight; continues to make good urine output in the last 24 - 48 hours; no other issues/events overnight or earlier this morning. Exam Narrative: General: ill appearing female; extubated Heart: normal S1 and S2; no rub; tachycardic Lungs: coarse breath sounds Abdomen: soft with TTP; dressings noted; hypoactive bowel sounds Extremities: no cyanosis or clubbing; no edema Skin: warm and intact Objective Data Vital Signs Vital Signs: Vital Signs Temp Pulse Resp BP Pulse Ox 06/09/21 11:45 94 24 H 95 06/09/21 10:00 110 H 30 H 166/94 H 93 06/09/21 08:11 110 H 95 06/09/21 08:00 37.1 C 98 20 168/94 H 95 06/09/21 07:46 90 20 06/09/21 07:45 90 20 06/09/21 06:00 86 27 H 133/64 97 06/09/21 04:52 96 94
--- NOTE | 2021-06-09 11:48 | PM.PNNEP ---
Progress Note: A&P Assessment and Plan (1) TEOFILO (acute kidney injury): Code(s): N17.9 - Acute kidney failure, unspecified Status: Acute Assessment and Plan: suspect ATN from sepsis/infection and likely pre-renal factors repeat imaging without obstruction CPK okay s/p aggressive IVF resusitation creatinine appears to have peaked/plateaued at 3.0mg/dl replace electrolytes as needed follow trend of repeat labs and UOP (2) Sepsis: Qualifiers: Acute renal failure type: with acute tubular necrosis Sepsis acute organ dysfunction status: with acute organ dysfunction Sepsis type: sepsis due to unspecified organism Severe sepsis acute organ dysfunction type: acute renal failure Severe sepsis shock status: without septic shock Qualified Code(s): A41.9 - Sepsis, unspecified organism; R65.20 - Severe sepsis without septic shock; N17.0 - Acute kidney failure with tubular necrosis Code(s): A41.9 - Sepsis, unspecified organism Status: Acute Assessment and Plan: due to bowel perforation, incarcerated hernia, and peritonitis follow culture data continue IV antibiotics follow hemodynamics (3) Acute respiratory failure: Qualifiers: Respiratory failure complication: hypercapnia Qualified Code(s): J96.02 - Acute respiratory failure with hypercapnia Code(s): J96.00 - Acute respiratory failure, unspecified whether with hypoxia or hypercapnia Status: Acute Assessment and Plan: resolving - extubated today due to sepsis and operative intervention follow trend of respiratory status (4) Perforation bowel: Code(s): K63.1 - Perforation of intestine (nontraumatic) Status: Acute Assessment and Plan: as noted by operative findings and admission imaging presumed to be secondary to incarcerated hernia and associated bowel infarction s/p adhesiolysis, right hemicolectomy, and repair of multiple incisional hernias General Surgery following (5) Hyperkalemia: Code(s): E87.5 - Hyperkalemia Status: Acute Assessment and Plan: due to TEOFILO/ARF corrected with medical management follow trend (6) Metabolic acidosis: Code(s): E87.2 - Acidosis Status: Acute Assessment and Plan: due to TEOFILO/ARF and sepsis was on bicarb fluids to compensate (dc'd) follow CO2 levels Will continue to follow. Subjective Date/time seen: 06/09/21 11:48 Extubated at the time of my visit; remains hemodynamically stable without the need for pressors; febrile overnight; continues to make good urine output in the last 24 - 48 hours; no other issues/events overnight or earlier this morning. Exam Narrative: General: ill appearing female; extubated Heart: normal S1 and S2; no rub; tachycardic Lungs: coarse breath sounds Abdomen: soft with TTP; dressings noted; hypoactive bowel sounds Extremities: no cyanosis or clubbing; no edema Skin: warm and intact Objective Data Vital Signs Vital Signs: Vital Signs Temp Pulse Resp BP Pulse Ox 06/09/21 11:45 94 24 H 95 06/09/21 10:00 110 H 30 H 166/94 H 93 06/09/21 08:11 110 H 95 06/09/21 08:00 37.1 C 98 20 168/94 H 95 06/09/21 07:46 90 20 06/09/21 07:45 90 20 06/09/21 06:00 86 27 H 133/64 97 06/09/21 04:52 96 94 06/09/21 04:00 37.2 C 82 20 111/72 95 06/09/21 03:40 96 06/09/21 02:52 81 20 06/09/21 02:47 81 20 06/09/21 02:20 91 94 06/09/21 02:00 81 20 111/69 95 06/09/21 00:59 85 20 06/09/21 00:37 89 20 06/09/21 00:00 37.1 C 88 26 H 117/75 95 06/08/21 23:23 88 95 06/08/21 22:00 90 20 121/76 95 06/08/21 20:39 91 95 06/08/21 20:00 36.7 C 95 21 H 113/77 94 06/08/21 18:30 94 95 06/08/21 18:00 38.0 C H 91 20 114/73 94 06/08/21 17:49 90 20 06/08/21 17:47 94 20 06/08/21 17:03 38.1 C H 90 20 111/75 95 1
[2021-06-09] MEDS: SODIUM CHLORIDE 0.9% IV 1,000 ML 75 ML IV CONT (14:18)
[2021-06-09 14:28] LABS: Glucose Point of Care 150 mg/dl (65-105)
[2021-06-09] MEDS: HYDROcodone/acetaminophen (*CRX) 5-325 MG TABLET 1 TAB PO (17:54)
[2021-06-09] MEDS: LABETALOL HCL INJ 100 MG/20 ML VIAL 20 MG IV PUSH (18:28)
[2021-06-09 18:33] LABS: Glucose Point of Care 132 mg/dl (65-105)
[2021-06-09 20:46] LABS: Glucose Point of Care 137 mg/dl (65-105)
[2021-06-09] MEDS: MORPHINE SULFATE (*CRX) 4 MG/ML INJ IV PUSH (23:26)
[2021-06-09 23:32] LABS: Glucose Point of Care 124 mg/dl (65-105)
[2021-06-10] VITALS (10 sets, daily range): BP systolic 130–157; BP diastolic 77–96; PULSE 70–90; RESP 21–27; TEMP 36.4–37.2; O2SAT 94–98
[2021-06-10] MEDS: SODIUM CHLORIDE 0.9% IV 1,000 ML 75 ML IV CONT (03:46)
[2021-06-10] MEDS: MORPHINE SULFATE (*CRX) 4 MG/ML INJ IV PUSH (03:47)
[2021-06-10 04:30] LABS: Hematocrit 25.8 % (37.0-47.0); Mean Corpuscular Hemoglobin 27.8 pg (26-34); Mean Corpuscular Volume 89.6 fl (80-100); Mean Platelet Volume 9.8 fl (7.4-10.4); Platelet Count Result 132 k/mm3 (150-375); Red Blood Count 2.88 M/mm3 (4.2-5.4); Red Cell Distribution Width 15.3 % (11.5-14.5); White Blood Count 6.4 K/mm3 (4.5-10.0)
[2021-06-10 04:41] LABS: Alanine Aminotransferase 10 U/L (4-35); Albumin Level 2.9 g/dL (3.5-5.1); Alkaline Phosphatase 139 U/L (38-126); Anion Gap 4 mmol/L (8-16); Aspartate Amino Transferase 19 U/L (14-36); Bilirubin,Total 0.8 mg/dL (0.2-1.3); Blood Urea Nitrogen 31 mg/dL (7-17); Calcium 7.5 mg/dL (8.4-10.2); Carbon Dioxide 33 mmol/L (22-30); Chloride 101 mmol/L (98-107); Estimated CRCL calculation 44 ml/min; Estimated Glomerular Filt Rate 28; Glucose 140 mg/dL (65-110); Magnesium 2.4 mg/dL (1.6-2.3); Phosphorus 3.3 mg/dL (2.5-4.5); Potassium 3.8 mmol/L (3.4-5.0); Sodium 138 mmol/L (137-145)
[2021-06-10 05:39] LABS: Alveolar/Arterial O2 Gradient 63.1 mmHg; Base Excess ABG 3.6 mEq/l (+/-2.0); Fractional Inspired Oxygen 28 %; HCO3 ABG 28.2 mEq/l (22.0-26.0); Methemoglobin ABG 0.1 %THb (0-1.5); Oxygen Content ABG 11.5 %vol (16.0-22.0); Oxygen Saturation ABG 96.7 % (95.0-100.0); Oxyhemoglobin 95.4 % THb (90.0-100.0); PCO2 ABG 43.2 mmHg (35.0-45.0); PO2 ABG 85.6 mmHg (80.0-100.0); PO2 FiO2 Ratio Arterial Blood 3.06 %; Reduced Hemoglobin 4.5 %THb (0-5.0); Total Hemoglobin 8.5 g/dL (12.0-18.0); pH ABG 7.433 (7.350-7.450)
[2021-06-10 05:44] LABS: Device NASAL CANNULA; Modified Allen's Test Pass; Site Drawn RIGHT RADIAL
[2021-06-10] MEDS: PANTOPRAZOLE SODIUM IV 40 MG VIAL IV PUSH (08:31)
[2021-06-10 08:33] LABS: Glucose Point of Care 122 mg/dl (65-105)
[2021-06-10] MEDS: FLUCONAZOLE 400 MG/NACL 200 ML 400 MG/200 ML BAG 100 MG IVPB (08:33)
--- NOTE | 2021-06-10 11:20 | PC.NURSE ---
This patient, Katlin Barton, was transferred to [[facility]] on 06/10/21 at 1120. Personal belongings sent with patient. Report given to [Vanita MONTANO]. Appropriate documentation sent with patient.
--- NOTE | 2021-06-10 11:34 | PC.NURSE ---
patient transferred to room 307-1 at 1125
--- NOTE | 2021-06-10 11:36 | PM.PNGS ---
Progress Note: A&P Assessment and Plan (1) Fecal peritonitis: Code(s): K65.8 - Other peritonitis Status: Acute Assessment and Plan: continue Zosyn and miconazole. Bowel function returning. Start full liquids. Discussed with valve mechanic, aislinn Ernst to transfer patient to [facility] floor. (2) Incarcerated hernia: Code(s): K46.0 - Unspecified abdominal hernia with obstruction, without gangrene Status: Acute Assessment and Plan: repaired at surgery 06/06/2021. (3) Acute bowel infarction: Code(s): K55.069 - Acute infarction of intestine, part and extent unspecified Status: Acute Assessment and Plan: Status post right hemicolectomy 06/06/2021 (4) TEOFILO (acute kidney injury): Code(s): N17.9 - Acute kidney failure, unspecified Status: Acute Assessment and Plan: Continues to improve. Creatinine decreasing and urine output improving (5) Sepsis: Qualifiers: Sepsis type: sepsis due to unspecified organism Sepsis acute organ dysfunction status: with acute organ dysfunction Severe sepsis acute organ dysfunction type: acute renal failure Acute renal failure type: with acute tubular necrosis Severe sepsis shock status: without septic shock Qualified Code(s): A41.9 - Sepsis, unspecified organism; R65.20 - Severe sepsis without septic shock; N17.0 - Acute kidney failure with tubular necrosis Code(s): A41.9 - Sepsis, unspecified organism Status: Acute Assessment and Plan: continues to resolve. Subjective Subjective Date/Time Seen: 06/10/21 11:36 Post Op day: 4 Patient reports: feels better, pain is less, no bowel movement and afebrile Interval history: Extubated earlier today. Review of Systems Constitutional: Constitutional: Denies chills, Reports daytime sleepiness, Denies fever(s), Denies headache(s), Reports lethargy and Reports weakness Cardiovascular: Cardiovascular: Denies chest pain and Denies dyspnea Respiratory: Respiratory: Denies cough and Denies dyspnea Gastrointestinal: Gastrointestinal: Reports as per HPI, Reports abdominal pain, Denies GI cramping, Denies heartburn, Denies nausea and Denies vomiting Exam Const: General: cooperative, comfortable, no acute distress, awake and tired appearing Nutritional Appearance: obese Orientation/consciousness: lethargic GI: Inspection: non-distended, incision ( Dry and appears to be healing well.), obesity, no visible herniation and other ( CAMILA drain serous) GI Palp: Yes Soft to palpation, Yes Tenderness to palpation present (GI), No Guarding due to palpation present (GI), No Hernia present, No Palpable mass present and No Rebound tenderness present Auscultation: Hypoactive bowel sounds present Neuro: General: patient oriented x3, no focal motor deficits and No confusion Extrem: General: no calf tenderness and no edema Objective Data Vital Signs Vital Signs: Vital Signs - 24 hr 06/09/21 11:45 06/09/21 12:00 06/09/21 14:00 Temperature 36.9 C Pulse Rate 94 93 93 Respiratory Rate 24 H 24 H 24 H Blood Pressure 146/99 H 155/87 H Pulse Oximetry 95 98 98 06/09/21 16:00 06/09/21 18:00 06/09/21 18:28 Temperature 37.7 C H Pulse Rate 94 91 91 Respiratory Rate 28 H 24 H Blood Pressure 150/85 H 162/99 H Pulse Oximetry 98 98 06/09/21 19:46 06/09/21 20:00 06/09/21 22:00 Temperature 36.9 C Pulse Rate 96 85 87 Respiratory Rate 22 H 26 H 27 H Blood Pressure 135/75 139/83 Pulse Oximetry 95 98 95 06/10/21 00:00 06/10/21 02:00 06/10/21 03:18 Temperature 36.8 C Pulse Rate 89 85 85 Respiratory Rate 25 H 24 H 24 H Blood Pressure 140/89 130/77 Pulse Oximetry 94 96 96 06/10/21 04:00 06/10/21 06:00 06/10/21 08:00 Temperature 36.9 C 36.9 C Pulse Rate 83 82 84 Respiratory Rate 24 H 21 H 25 H Blood Pressure 134/87 150/83 H 144/81 H Pulse Oximetry 98 97 96 Intake/Output Intake/Output: Intake & Output 06/07/21 06/08/21
[2021-06-10] MEDS: HYDROcodone/acetaminophen (*CRX) 5-325 MG TABLET 1 TAB PO ×2 (11:41→15:36)
--- NOTE | 2021-06-10 11:48 | PM.IMCN ---
Assessment and Plan Assessment and plan (1) Acute respiratory failure: Qualifiers: Respiratory failure complication: hypercapnia Qualified Code(s): J96.02 - Acute respiratory failure with hypercapnia Code(s): J96.00 - Acute respiratory failure, unspecified whether with hypoxia or hypercapnia Status: Acute Assessment and Plan: Acute Respiratory failure secondary to sepsis, perforated bowel and general anesthesia Patient was extubated this morning. Currently patient is breathing with relatively modest volume of supplemental oxygen 2 L by nasal cannula. Continue close monitoring. (2) Sepsis: Qualifiers: Acute renal failure type: with acute tubular necrosis Sepsis acute organ dysfunction status: with acute organ dysfunction Sepsis type: sepsis due to unspecified organism Severe sepsis acute organ dysfunction type: acute renal failure Severe sepsis shock status: without septic shock Qualified Code(s): A41.9 - Sepsis, unspecified organism; R65.20 - Severe sepsis without septic shock; N17.0 - Acute kidney failure with tubular necrosis Code(s): A41.9 - Sepsis, unspecified organism Status: Acute Assessment and Plan: Acute nonoliguric kidney injury, likely prerenal versus ATN in the setting of sepsis secondary to bowel perforation peritonitis, status post exploratory laparotomy hemicolectomy. Currently patient hemodynamically stable with blood pressure in the 144/81-157/94 range. Kidney function is improving with supportive measures. Creatinine down to 1.9. Continue close monitoring. Sepsis is likely secondary to bowel perforation and incarcerated hernia, peritonitis Now status post ex lap hemicolectomy Please refer to general surgery note for details Patient has underwent aggressive IV resuscitation but likely is third-spacing. Continue IV fluids at 755 mL/hour Continue IV Zosyn and Diflucan Cultures ordered and have remained negative at the time of this dictation. (3) Anemia: Code(s): D64.9 - Anemia, unspecified Status: Acute Assessment and Plan: Moderate normochromic normocytic anemia with hemoglobin of 8, stable. Previously patient had dropped her hemoglobin on 06/08 and was given 2 units of PRBCs no obvious evidence of bleeding was identified. There was no coagulation dysfunction. There may have been an element of dilutional anemia. CT abdomen pelvis did not show any retroperitoneal hemorrhage. Continue close clinical monitoring. Continue PPI IV q.12 hours. Hold Lovenox and switch to SCDs for now (4) TEOFILO (acute kidney injury): Code(s): N17.9 - Acute kidney failure, unspecified Status: Acute Assessment and Plan: Non oliguric acute kidney injury, improving. Per nephrology evaluation, suspect ATN from sepsis/infection and likely pre-renal factors. Kidney imaging without obstruction. CPK unremarkable. Kidney function has improved after aggressive IVF resusitation. Creatinine peaked at 3.0, came down to 2.4 yesterday and today is down to 1.9. Monitor daily BMP; replace electrolytes as needed follow trend of repeat labs and UOP Continue cautious IV fluids resuscitation while monitoring urine output electrolytes and creatinine (5) Perforation bowel: Code(s): K63.1 - Perforation of intestine (nontraumatic) Status: Acute Assessment and Plan: Surgical management as above (6) Peritonitis: Code(s): K65.9 - Peritonitis, unspecified Status: Acute Assessment and Plan: Continue IV antibiotic as above (7) Incarcerated hernia: Code(s): K46.0 - Unspecified abdominal hernia with obstruction, without gangrene Status: Acute Assessment and Plan: Surgical management as above (8) Acidosis: Code(s): E87.2 - Acidosis Status: Acute Assessment and Plan: Resolved. Patient now mildly alkalotic both respiratory and metabolic bicarb IV fluids has been changed to normal sali
--- NOTE | 2021-06-10 12:32 | WPDINTPN ---
Progress Note: A&P Assessment and Plan (1) Acute respiratory failure: Qualifiers: Respiratory failure complication: hypercapnia Qualified Code(s): J96.02 - Acute respiratory failure with hypercapnia Code(s): J96.00 - Acute respiratory failure, unspecified whether with hypoxia or hypercapnia Status: Acute Assessment and Plan: Acute Respiratory failure secondary to sepsis, perforated bowel and general anesthesia 06/09 patient was extubated after successful weaning trial. Obtaining adequate oxygenation on nasal cannula ABG and chest x-ray reviewed. Up in chair, PT OT, incentive spirometry (2) Sepsis: Qualifiers: Sepsis type: sepsis due to unspecified organism Sepsis acute organ dysfunction status: with acute organ dysfunction Severe sepsis acute organ dysfunction type: acute renal failure Acute renal failure type: with acute tubular necrosis Severe sepsis shock status: without septic shock Qualified Code(s): A41.9 - Sepsis, unspecified organism; R65.20 - Severe sepsis without septic shock; N17.0 - Acute kidney failure with tubular necrosis Code(s): A41.9 - Sepsis, unspecified organism Status: Acute Assessment and Plan: Secondary to bowel perforation and incarcerated hernia, peritonitis Now status post ex lap hemicolectomy Please refer to general surgery note for details Now hypertensive Will DC IV fluids Continue IV Zosyn and Diflucan Cultures ordered and are negative for now (3) Anemia: Code(s): D64.9 - Anemia, unspecified Status: Acute Assessment and Plan: patient had drop in her hemoglobin 06/08 and was given 2 units of PRBC no obvious evidence of bleeding as patient has a non bloody NG output, no bowel movement with blood in it and no bruising on the skin coags checked and they are unremarkable this could be dilutional as sedation has not received significant amount of IV fluids CT abdomen pelvis was checked and did not show any retroperitoneal hemorrhage continue monitoring continue PPI IV q.12 hours start Lovenox for DVT prophylaxis (4) TEOFILO (acute kidney injury): Code(s): N17.9 - Acute kidney failure, unspecified Status: Acute Assessment and Plan: Likely secondary to sepsis and postoperative ATN Normal CK She had CT abdomen pelvis which did not show any hydronephrosis yesterday Nephrology is following. Creatinine and urine output continues to improve Monitor urine output electrolytes and creatinine (5) Perforation bowel: Code(s): K63.1 - Perforation of intestine (nontraumatic) Status: Acute (6) Peritonitis: Code(s): K65.9 - Peritonitis, unspecified Status: Acute (7) Incarcerated hernia: Code(s): K46.0 - Unspecified abdominal hernia with obstruction, without gangrene Status: Acute (8) Acidosis: Code(s): E87.2 - Acidosis Status: Acute Assessment and Plan: resolved and patient off of IV bicarb (9) Sinus tachycardia: Code(s): R00.0 - Tachycardia, unspecified Status: Acute Assessment and Plan: Persistent sinus tachycardia despite volume resuscitation. Could be secondary to pain and anxiety improved pain controll echo Summary 1. Complete two-dimensional, color flow and Doppler transthoracic echocardiogram is performed. 2. Technically suboptimal study due to poor sonographic images. 3. Left ventricular chamber dimension is normal. 4. Left ventricular systolic function is hyperdynamic, estimated at >70%. 5. The left ventricular diastolic function is grade I diastolic dysfunction. 6. E/e' 13 is mildly elevated. 7. No pulmonary hypertension, estimated pulmonary arterial systolic pressure is 17 mmHg. Additional Plan DVT prophylaxis -SCD start Lovenox Stress ulcer prophylaxis -PPI Nutrition - full liquid diet as per surgery recommendation Code Status - Full Code Case discussed with Dr. Juvencio duran
--- NOTE | 2021-06-10 12:36 | PCNFU ---
Nutrition Follow-Up Complete: Inadequate Oral Intake as related to mechanical ventilation as evidenced by NPO. Goal: Meet estimated nutritional needs Patient is progressing towards goal. We will continue current goal. Pt current nutrition is Full liquids. Nutrition recommendation: Jose Ramon BID Last recorded weight is 122.3 kg, up from 122 kg on admit Bowel Motility:NO BM reported. Labs Reviewed:Mg 2.4, BUN 31, Cr 1.9,Glu 140, Alb 2.9,GFR 31 Meds Noted:Zosyn, Diflucan, [place] Skin: Right nose-Deep Tissue. Additional Notes: Patient extubated on 06/09. Diet order has been advancing to full liquids. Recommend protein modular of Jose Ramon BID 2/2 to wounds. Recommend advancing diet as tolerated per MD orders. Monitoring: Will monitor every 3 days.
--- NOTE | 2021-06-10 15:47 | P.PNNP_ITS ---
Progress Note: A&P Assessment and Plan (1) TEOFILO (acute kidney injury): Code(s): N17.9 - Acute kidney failure, unspecified Status: Acute Assessment and Plan: * suspect ATN from sepsis/infection and likely pre-renal factors * repeat imaging without obstruction * CPK okay * s/p aggressive IVF resusitation * creatinine Peaked at 3.0, came down to 2.4 yesterday and today is down to 1.9. * replace electrolytes as needed * follow trend of repeat labs and UOP (2) Sepsis: Qualifiers: Sepsis type: sepsis due to unspecified organism Sepsis acute organ dysfunction status: with acute organ dysfunction Severe sepsis acute organ dysfunction type: acute renal failure Acute renal failure type: with acute tubular necrosis Severe sepsis shock status: without septic shock Qualified Code(s): A41.9 - Sepsis, unspecified organism; R65.20 - Severe sepsis without septic shock; N17.0 - Acute kidney failure with tubular necrosis Code(s): A41.9 - Sepsis, unspecified organism Status: Acute Assessment and Plan: * due to bowel perforation, incarcerated hernia, and peritonitis * follow culture data * continue IV antibiotics * Blood pressure seems to be doing pretty well. (3) Acute respiratory failure: Qualifiers: Respiratory failure complication: hypercapnia Qualified Code(s): J96.02 - Acute respiratory failure with hypercapnia Code(s): J96.00 - Acute respiratory failure, unspecified whether with hypoxia or hypercapnia Status: Acute Assessment and Plan: * No shortness of breath right now. * due to sepsis and operative intervention (4) Perforation bowel: Code(s): K63.1 - Perforation of intestine (nontraumatic) Status: Acute Assessment and Plan: * as noted by operative findings and admission imaging * presumed to be secondary to incarcerated hernia and associated bowel infarction * s/p adhesiolysis, right hemicolectomy, and repair of multiple incisional hernias * Bowel sounds hypoactive * General Surgery following (5) Hyperkalemia: Code(s): E87.5 - Hyperkalemia Status: Acute Assessment and Plan: * resolved (6) Metabolic acidosis: Code(s): E87.2 - Acidosis Status: Acute Assessment and Plan: * resolved Will continue to follow. Subjective Date/time seen: 06/10/21 15:47 Interval history: Katlin is uncomfortable. A couple of hours ago she was offered some pain medicine but felt like she did not need it. Then she sat up at the side of the bed and now has lots of pain and so the nurses are getting her some medicine she has had a few sips of water. Exam Narrative: General: ill appearing female; extubated Heart: normal S1 and S2; no rub; tachycardic Lungs: fairly clear anteriorly. Abdomen: soft with TTP; dressings noted; hypoactive bowel sounds Extremities: no edema Skin: No rash Objective Data Vital Signs Vital Signs: Vital Signs - 24 hr 06/09/21 16:00 06/09/21 18:00 06/09/21 18:28 Temperature 37.7 C H Pulse Rate 94 91 91 Respiratory Rate 28 H 24 H Blood Pressure 150/85 H 162/99 H Pulse Oximetry 98 98 06/09/21 19:46 06/09/21 20:00 06/09/21 22:00 Temperature 36.9 C Pulse Rate 96 85 87 Respiratory Rate 22 H 26 H 27 H Blood Pressure 135/75 139/83 Pulse Oxim
--- NOTE | 2021-06-10 15:47 | PM.PNNEP ---
Progress Note: A&P Assessment and Plan (1) TEOFILO (acute kidney injury): Code(s): N17.9 - Acute kidney failure, unspecified Status: Acute Assessment and Plan: suspect ATN from sepsis/infection and likely pre-renal factors repeat imaging without obstruction CPK okay s/p aggressive IVF resusitation creatinine Peaked at 3.0, came down to 2.4 yesterday and today is down to 1.9. replace electrolytes as needed follow trend of repeat labs and UOP (2) Sepsis: Qualifiers: Sepsis type: sepsis due to unspecified organism Sepsis acute organ dysfunction status: with acute organ dysfunction Severe sepsis acute organ dysfunction type: acute renal failure Acute renal failure type: with acute tubular necrosis Severe sepsis shock status: without septic shock Qualified Code(s): A41.9 - Sepsis, unspecified organism; R65.20 - Severe sepsis without septic shock; N17.0 - Acute kidney failure with tubular necrosis Code(s): A41.9 - Sepsis, unspecified organism Status: Acute Assessment and Plan: due to bowel perforation, incarcerated hernia, and peritonitis follow culture data continue IV antibiotics Blood pressure seems to be doing pretty well. (3) Acute respiratory failure: Qualifiers: Respiratory failure complication: hypercapnia Qualified Code(s): J96.02 - Acute respiratory failure with hypercapnia Code(s): J96.00 - Acute respiratory failure, unspecified whether with hypoxia or hypercapnia Status: Acute Assessment and Plan: No shortness of breath right now. due to sepsis and operative intervention (4) Perforation bowel: Code(s): K63.1 - Perforation of intestine (nontraumatic) Status: Acute Assessment and Plan: as noted by operative findings and admission imaging presumed to be secondary to incarcerated hernia and associated bowel infarction s/p adhesiolysis, right hemicolectomy, and repair of multiple incisional hernias Bowel sounds hypoactive General Surgery following (5) Hyperkalemia: Code(s): E87.5 - Hyperkalemia Status: Acute Assessment and Plan: resolved (6) Metabolic acidosis: Code(s): E87.2 - Acidosis Status: Acute Assessment and Plan: resolved Will continue to follow. Subjective Date/time seen: 06/10/21 15:47 Interval history: Katlin is uncomfortable. A couple of hours ago she was offered some pain medicine but felt like she did not need it. Then she sat up at the side of the bed and now has lots of pain and so the nurses are getting her some medicine she has had a few sips of water. Exam Narrative: General: ill appearing female; extubated Heart: normal S1 and S2; no rub; tachycardic Lungs: fairly clear anteriorly. Abdomen: soft with TTP; dressings noted; hypoactive bowel sounds Extremities: no edema Skin: No rash Objective Data Vital Signs Vital Signs: Vital Signs - 24 hr 06/09/21 16:00 06/09/21 18:00 06/09/21 18:28 Temperature 37.7 C H Pulse Rate 94 91 91 Respiratory Rate 28 H 24 H Blood Pressure 150/85 H 162/99 H Pulse Oximetry 98 98 06/09/21 19:46 06/09/21 20:00 06/09/21 22:00 Temperature 36.9 C Pulse Rate 96 85 87 Respiratory Rate 22 H 26 H 27 H Blood Pressure 135/75 139/83 Pulse Oximetry 95 98 95 06/10/21 00:00 06/10/21 02:00 06/10/21 03:18 Temperature 36.8 C Pulse Rate 89 85 85 Respiratory Rate 25 H 24 H 24 H Blood Pressure 140/89 130/77 Pulse Oximetry 94 96 96 06/10/21 04:00 06/10/21 06:00 06/10/21 08:00 Temperature 36.9 C 36.9 C Pulse Rate 83 82 84 Respiratory Rate 24 H 21 H 25 H Blood Pressure 134/87 150/83 H 144/81 H Pulse Oximetry 98 97 96 06/10/21 11:44 06/10/21 12:00 Temperature 37.2 C Pulse Rate 82 Respiratory Rate 24 H Blood Pressure 157/94 H Pulse Oximetry 96 97 Intake/Output Intake/Output: Intake & Output 06/07/21 06/08/21 06/09/21
[2021-06-10] MEDS: ONDANSETRON INJ 4 MG/2 ML VIAL IV PUSH (17:14)
[2021-06-11] VITALS (9 sets, daily range): BP systolic 143–164; BP diastolic 81–89; PULSE 76–86; RESP 18–20; TEMP 36.2–36.8; O2SAT 90–98
[2021-06-11] MEDS: HYDROcodone/acetaminophen (*CRX) 5-325 MG TABLET 1 TAB PO ×2 (03:35→20:23)
[2021-06-11 06:00] LABS: Alanine Aminotransferase 9 U/L (4-35); Albumin Level 3.1 g/dL (3.5-5.1); Alkaline Phosphatase 94 U/L (38-126); Anion Gap 9 mmol/L (8-16); Aspartate Amino Transferase 21 U/L (14-36); Bilirubin,Total 0.9 mg/dL (0.2-1.3); Blood Urea Nitrogen 30 mg/dL (7-17); Calcium 7.8 mg/dL (8.4-10.2); Carbon Dioxide 24 mmol/L (22-30); Chloride 103 mmol/L (98-107); Estimated CRCL calculation 64 ml/min; Estimated Glomerular Filt Rate 44; Glucose 138 mg/dL (65-110); Magnesium 2.4 mg/dL (1.6-2.3); Phosphorus 2.9 mg/dL (2.5-4.5); Potassium 4.3 mmol/L (3.4-5.0); Sodium 136 mmol/L (137-145)
[2021-06-11 06:17] LABS: Hemoglobin 8.3 g/dL (12.0-15.0); Mean Corpuscular HGB Conc 30.7 g/dl (32-36); Mean Corpuscular Volume 91.2 fl (80-100); Mean Platelet Volume 9.8 fl (7.4-10.4); Platelet Count Result 141 k/mm3 (150-375); Red Blood Count 2.96 M/mm3 (4.2-5.4); Red Cell Distribution Width 15.1 % (11.5-14.5); White Blood Count 6.5 K/mm3 (4.5-10.0)
--- NOTE | 2021-06-11 07:17 | PM.PNNEP ---
Progress Note: A&P Assessment and Plan (1) TEOFILO (acute kidney injury): Code(s): N17.9 - Acute kidney failure, unspecified Status: Acute Assessment and Plan: suspect ATN from sepsis/infection and likely pre-renal factors repeat imaging without obstruction CPK okay Creatinine continues to improve. Today down to 1.3. Urine output is doing well. (2) Sepsis: Qualifiers: Sepsis type: sepsis due to unspecified organism Sepsis acute organ dysfunction status: with acute organ dysfunction Severe sepsis acute organ dysfunction type: acute renal failure Acute renal failure type: with acute tubular necrosis Severe sepsis shock status: without septic shock Qualified Code(s): A41.9 - Sepsis, unspecified organism; R65.20 - Severe sepsis without septic shock; N17.0 - Acute kidney failure with tubular necrosis Code(s): A41.9 - Sepsis, unspecified organism Status: Acute Assessment and Plan: due to bowel perforation, incarcerated hernia, and peritonitis Blood cultures negative. On Zosyn and fluconazole. Blood pressure seems to be doing pretty well. (3) Acute respiratory failure: Qualifiers: Respiratory failure complication: hypercapnia Qualified Code(s): J96.02 - Acute respiratory failure with hypercapnia Code(s): J96.00 - Acute respiratory failure, unspecified whether with hypoxia or hypercapnia Status: Acute Assessment and Plan: Resolved. (4) Perforation bowel: Code(s): K63.1 - Perforation of intestine (nontraumatic) Status: Acute Assessment and Plan: as noted by operative findings and admission imaging presumed to be secondary to incarcerated hernia and associated bowel infarction s/p adhesiolysis, right hemicolectomy, and repair of multiple incisional hernias Bowel sounds still hypoactive General Surgery following (5) Hyperkalemia: Code(s): E87.5 - Hyperkalemia Status: Acute Assessment and Plan: resolved (6) Metabolic acidosis: Code(s): E87.2 - Acidosis Status: Acute Assessment and Plan: resolved Will continue to follow. Subjective Date/time seen: 06/11/21 07:17 Interval history: Katlin is feeling a little bit better. She says that her wounds hurt when she coughs. Eager to get some physical therapy. Exam Narrative: General: ill appearing female; extubated Heart: normal S1 and S2; no rub; tachycardic Lungs: fairly clear anteriorly. Abdomen: soft with TTP; dressings noted; hypoactive bowel sounds Extremities: no edema or cyanosis Skin: No rash or subQ nodules Objective Data Vital Signs Vital Signs: Vital Signs - 24 hr 06/10/21 08:00 06/10/21 11:44 06/10/21 12:00 Temperature 36.9 C 37.2 C Pulse Rate 84 82 Respiratory Rate 25 H 24 H Blood Pressure 144/81 H 157/94 H Pulse Oximetry 96 96 97 06/10/21 16:00 06/10/21 20:00 06/11/21 00:00 Temperature 36.4 C L 36.4 C Pulse Rate 80 78 84 Respiratory Rate 24 H 18 Blood Pressure 153/96 H 149/81 H Pulse Oximetry 98 97 97 06/11/21 04:00 06/11/21 06:40 Temperature 36.7 C Pulse Rate 85 80 Respiratory Rate 18 Blood Pressure 164/89 H Pulse Oximetry 98 Intake/Output Intake/Output: Intake & Output 06/08/21 06/09/21 06/10/21 06/11/21 23:59 23:59 23:59 23:59 Intake Total 4242 2214 2320 450 Output Total 2395 2425 1878 750 Balance 1847 -211 442 -300 Meds/Results Medications: Active Medications Generic Name Dose Route Start Last Admin Trade Name Freq PRN Reason Stop Dose Admin Acetaminophen 650 mg 06/06/21 14:08 Acetaminophen 325 Mg Tablet PO Q4H PRN Mild Pain (1-3) or Fever Hydrocodone Bitart/Acetaminophen 1 tab 06/09/21 14:29 06/11/21 03:35 Hydrocodone/Acetaminophen (*Crx) 5-325 Mg Tablet PO 1 tab Q4H PRN Administration Pain Rated 4-6 Dextrose 12.5 gm 06/06/21 14:04 Dextrose 50% 25 Gm/50 Ml Syringe IV P
[2021-06-11] MEDS: PANTOPRAZOLE 40 MG TABLET PO (08:54)
[2021-06-11] MEDS: ENOXAPARIN 40 MG/0.4 ML SYRINGE SUB-Q (08:54)
[2021-06-11] MEDS: FLUCONAZOLE 400 MG/NACL 200 ML 400 MG/200 ML BAG 100 MG IVPB (08:54)
--- NOTE | 2021-06-11 13:07 | PM.PNGS ---
Progress Note: A&P Assessment and Plan (1) Fecal peritonitis: Code(s): K65.8 - Other peritonitis Status: Acute Assessment and Plan: continue Zosyn and fluconazole. Making good progress. No sign wound infection as yet. Advance to solid food. Leave Barton 1 more day. Patient up in chair and making daily improvements. (2) TEOFILO (acute kidney injury): Code(s): N17.9 - Acute kidney failure, unspecified Status: Acute Assessment and Plan: Good urine output and Creatinine nearly normal. probably DC Barton tomorrow. (3) Incarcerated hernia: Code(s): K46.0 - Unspecified abdominal hernia with obstruction, without gangrene Status: Acute Assessment and Plan: Repair intact. No sign recurrence as yet. (4) Acute bowel infarction: Code(s): K55.069 - Acute infarction of intestine, part and extent unspecified Status: Acute Assessment and Plan: Status post right hemicolectomy with hand-sewn anastomosis 5 days ago. Subjective Subjective Date/Time Seen: 06/11/21 13:07 Post Op day: 5 Patient reports: no new complaints, feels better, pain is less, tolerating liquids well and afebrile Exam Const: General: cooperative, comfortable, no acute distress, alert and awake; No confusion Nutritional Appearance: obese Orientation/consciousness: patient oriented x3, No confusion and lethargic GI: Inspection: incision ( Continues to heal well, intact with minimal drainage), obesity, no visible herniation and other ( serosanguineous fluid from right upper quadrant subcutaneous drain) GI Palp: Yes Soft to palpation, Yes Tenderness to palpation present (GI), No Guarding due to palpation present (GI) and No Rebound tenderness present Auscultation: normal bowel sounds Urinary Catheter: Urinary Catheter: patent and draining and urine clear Neuro: General: patient oriented x3, no focal motor deficits and No confusion Extrem: General: no calf tenderness and no edema Psych: Speech and movement: Clear speech present Affect: Indifferent affect present and Blunted affect present Attitude: cooperative Insight: Fair insight present (Psych) Judgement: Fair judgement present (Psych) Objective Data Vital Signs Vital Signs: Vital Signs - 24 hr 06/10/21 16:00 06/10/21 20:00 06/11/21 00:00 Temperature 36.4 C L 36.4 C Pulse Rate 80 78 84 Respiratory Rate 24 H 18 Blood Pressure 153/96 H 149/81 H Pulse Oximetry 98 97 97 06/11/21 04:00 06/11/21 06:40 06/11/21 08:00 Temperature 36.7 C Pulse Rate 85 80 76 Respiratory Rate 18 Blood Pressure 164/89 H Pulse Oximetry 98 95 06/11/21 12:00 Temperature Pulse Rate 85 Respiratory Rate Blood Pressure Pulse Oximetry Intake/Output Intake/Output: Intake & Output 06/08/21 06/09/21 06/10/21 06/11/21 23:59 23:59 23:59 23:59 Intake Total 4242 2214 2320 870 Output Total 8561 7985 1878 750 Balance 1847 -211 442 120 Meds/Results Medications: Active Medications Generic Name Dose Route Start Last Admin Trade Name Freq PRN Reason Stop Dose Admin Acetaminophen 650 mg 06/06/21 14:08 Acetaminophen 325 Mg Tablet PO Q4H PRN Mild Pain (1-3) or Fever Hydrocodone Bitart/Acetaminophen 1 tab 06/09/21 14:29 06/11/21 03:35 Hydrocodone/Acetaminophen (*Crx) 5-325 Mg Tablet PO 1 tab Q4H PRN Administration Pain Rated 4-6 Dextrose 12.5 gm 06/06/21 14:04 Dextrose 50% 25 Gm/50 Ml Syringe IV PUSH PRN PRN Hypoglycemia Protocol Enoxaparin Sodium 40 mg 06/07/21 09:00 06/11/21 08:54 Enoxaparin 40 Mg/0.4 Ml Syringe SUB-Q 40 mg DAILY ANNAMARIA Administration Glucagon 1 mg 06/06/21 14:04 Glucagon For Inj 1 Mg Vial IM PRN PRN Hypoglycemia Protocol Glucose 15 gm 06/06/21 14:04 Glucose Oral Gel 15 Gm Of Glucse In 37.5 Gm Tube PO PRN PRN Hypoglycemia Protocol Dextrose 1,000 mls @ 100 mls/hr 06/06/21 14:04 Dextrose 5% 1,000 M
--- NOTE | 2021-06-11 13:31 | PCOTNOTE ---
On 06/11/21, the student, Triny Torres, provided care and completed [facility] documentation on this patient. I have reviewed the student's documentation and agree with the findings.
--- NOTE | 2021-06-11 17:14 | PM.IMPN ---
Progress Note: A&P Assessment and Plan (1) Acute respiratory failure: Qualifiers: Respiratory failure complication: hypercapnia Qualified Code(s): J96.02 - Acute respiratory failure with hypercapnia Code(s): J96.00 - Acute respiratory failure, unspecified whether with hypoxia or hypercapnia Status: Acute Assessment and Plan: Resolved acute Respiratory failure secondary to sepsis, perforated bowel and general anesthesia Patient was extubated on 06/10/2021. Currently patient is saturating 90-95% on room air. Continue incentive spirometry. (2) Sepsis: Qualifiers: Sepsis type: sepsis due to unspecified organism Sepsis acute organ dysfunction status: with acute organ dysfunction Severe sepsis acute organ dysfunction type: acute renal failure Acute renal failure type: with acute tubular necrosis Severe sepsis shock status: without septic shock Qualified Code(s): A41.9 - Sepsis, unspecified organism; R65.20 - Severe sepsis without septic shock; N17.0 - Acute kidney failure with tubular necrosis Code(s): A41.9 - Sepsis, unspecified organism Status: Acute Assessment and Plan: Resolving acute nonoliguric kidney injury, likely prerenal versus ATN in the setting of sepsis secondary to bowel perforation peritonitis, status post exploratory laparotomy hemicolectomy. Currently patient hemodynamically stable with blood pressure in the 143/86-164/89 range. Kidney function is improving slowly.. Creatinine down to 1.9. Continue close monitoring. Sepsis is likely secondary to bowel perforation and incarcerated hernia, peritonitis. Currently patient is receiving IV antibiotics Now status post ex lap hemicolectomy Please refer to general surgery note for details Patient has underwent aggressive IV resuscitation but likely is third-spacing. Continue IV fluids at 755 mL/hour Continue IV Zosyn and Diflucan Cultures ordered and have remained negative at the time of this dictation. (3) Anemia: Code(s): D64.9 - Anemia, unspecified Status: Acute Assessment and Plan: Moderate normochromic normocytic anemia with hemoglobin of 8.3, stable and well tolerated. Previously patient had dropped her hemoglobin on 06/08 and was given 2 units of PRBCs no obvious evidence of bleeding was identified. There was no coagulation dysfunction. There may have been an element of dilutional anemia. CT abdomen pelvis did not show any retroperitoneal hemorrhage. Continue close clinical monitoring. Continue PPI IV q.12 hours. Hold Lovenox and switch to SCDs for now. (4) TEOFILO (acute kidney injury): Code(s): N17.9 - Acute kidney failure, unspecified Status: Acute Assessment and Plan: Non oliguric acute kidney injury, improving. Per nephrology evaluation, suspect ATN from sepsis/infection and likely pre-renal factors. Kidney imaging without obstruction. CPK unremarkable. Kidney function has improved after aggressive IVF resusitation. Creatinine peaked at 3.0, came down to 1.9 yesterday and today is down to 1.3. This is very encouraging. Monitor daily BMP; replace electrolytes as needed follow trend of repeat labs and UOP Continue cautious IV fluids resuscitation while monitoring urine output electrolytes and creatinine (5) Perforation bowel: Code(s): K63.1 - Perforation of intestine (nontraumatic) Status: Acute Assessment and Plan: Surgical management as above. Patient is making good progress. Encourage out of bed to chair. (6) Peritonitis: Code(s): K65.9 - Peritonitis, unspecified Status: Acute Assessment and Plan: Continue IV antibiotic as above (7) Incarcerated hernia: Code(s): K46.0 - Unspecified abdominal hernia with obstruction, without gangrene Status: Acute Assessment and Plan: Surgical management as above (8) Acidosis: Code(s): E87.2 - Acidosis Status: Acute Assessment and Plan: Resolved
[2021-06-12] VITALS: PULSE 88
[2021-06-12 04:00] VITALS: PULSE 85
[2021-06-12 07:29] LABS: Albumin Level 3.2 g/dL (3.5-5.1); Anion Gap 10 mmol/L (8-16); Blood Urea Nitrogen 27 mg/dL (7-17); Calcium 8.1 mg/dL (8.4-10.2); Carbon Dioxide 25 mmol/L (22-30); Chloride 100 mmol/L (98-107); Estimated CRCL calculation 63 ml/min; Estimated Glomerular Filt Rate 44; Glucose 143 mg/dL (65-110); Phosphorus 2.9 mg/dL (2.5-4.5); Potassium 3.7 mmol/L (3.4-5.0); Sodium 135 mmol/L (137-145)
[2021-06-12] MEDS: PANTOPRAZOLE 40 MG TABLET PO (09:42)
[2021-06-12] MEDS: FLUCONAZOLE 400 MG/NACL 200 ML 400 MG/200 ML BAG 100 MG IVPB (09:42)
[2021-06-12] MEDS: ENOXAPARIN 40 MG/0.4 ML SYRINGE SUB-Q (09:43)
[2021-06-12] MEDS: HYDROcodone/acetaminophen (*CRX) 5-325 MG TABLET 1 TAB PO ×2 (09:48→20:40)
--- NOTE | 2021-06-12 09:56 | PM.PNGS ---
Progress Note: A&P Assessment and Plan (1) Fecal peritonitis: Code(s): K65.8 - Other peritonitis Status: Acute Assessment and Plan: Continue IV antibiotics and IV ketoconazole. Up again today. DC Barton catheter. Probably remove right-sided CAMILA drain tomorrow. Making progress. (2) Incarcerated hernia: Code(s): K46.0 - Unspecified abdominal hernia with obstruction, without gangrene Status: Resolved (3) Acute bowel infarction: Code(s): K55.069 - Acute infarction of intestine, part and extent unspecified Status: Acute Assessment and Plan: Pathology report noted. Consistent with operative findings. (4) Morbid obesity: Code(s): E66.01 - Morbid (severe) obesity due to excess calories Status: Chronic (5) TEOFILO (acute kidney injury): Code(s): N17.9 - Acute kidney failure, unspecified Status: Acute Assessment and Plan: Creatinine 1.3 again today. Good urine output. DC Barton today. Subjective Subjective Date/Time Seen: 06/12/21 09:56 Post Op day: #6 Patient reports: no new complaints, feels better, pain is less, no bowel movement, afebrile and other (Poor appetite) Review of Systems Review of Systems: All systems reviewed & are unremarkable except as noted in HPI and below (HPI) Constitutional: Constitutional: Denies chills and Denies fever(s) Cardiovascular: Cardiovascular: Denies chest pain, Denies diaphoresis, Denies dyspnea and Denies paroxysmal nocturnal dyspnea Respiratory: Respiratory: Denies chest congestion, Denies cough and Denies dyspnea Integumentary/Breasts: Skin/Breast: Denies lesions and Denies rash Exam Const: General: comfortable and no acute distress; No confusion Orientation/consciousness: patient oriented x3 and No confusion GI: Inspection: Abdominal wall edema, non-distended, incision (No redness or significant drainage), obesity and no visible herniation GI Palp: Yes Soft to palpation, Yes Tenderness to palpation present (GI), No Guarding due to palpation present (GI), No Hernia present, No Palpable mass present and No Rebound tenderness present Neuro: General: patient oriented x3, no focal motor deficits and No confusion Extrem: General: no calf tenderness and no edema Psych: Speech and movement: Clear speech present Affect: Indifferent affect present Attitude: cooperative Thought process: Normal thought process present Thought content: Yes Normal thought content present Insight: Fair insight present (Psych) Judgement: Fair judgement present (Psych) Objective Data Vital Signs Vital Signs: Vital Signs - 24 hr 06/11/21 12:00 06/11/21 14:00 06/11/21 16:00 Temperature 36.8 C Pulse Rate 85 81 84 Respiratory Rate 20 Blood Pressure 143/86 H Pulse Oximetry 90 06/11/21 20:00 06/11/21 22:00 06/12/21 00:00 Temperature 36.2 C L Pulse Rate 84 86 88 Respiratory Rate 18 Blood Pressure 150/87 H Pulse Oximetry 93 06/12/21 04:00 Temperature Pulse Rate 85 Respiratory Rate Blood Pressure Pulse Oximetry Intake/Output Intake/Output: Intake & Output 06/09/21 06/10/21 06/11/21 06/12/21 23:59 23:59 23:59 23:59 Intake Total 2214 2320 970 590 Output Total 2429 6118 1970 1015 Balance -211 442 -1000 -425 Meds/Results Medications: Active Medications Generic Name Dose Route Start Last Admin Trade Name Freq PRN Reason Stop Dose Admin Acetaminophen 650 mg 06/06/21 14:08 Acetaminophen 325 Mg Tablet PO Q4H PRN Mild Pain (1-3) or Fever Hydrocodone Bitart/Acetaminophen 1 tab 06/09/21 14:29 06/12/21 09:48 Hydrocodone/Acetaminophen (*Crx) 5-325 Mg Tablet PO 1 tab Q4H PRN Administration Pain Rated 4-6 Dextrose 12.5 gm 06/06/21 14:04 Dextrose 50% 25 Gm/50 Ml Syringe IV PUSH PRN PRN Hypoglycemia Protocol Enoxaparin Sodium 40 mg 06/07/21 09:00 06/12/21 09:43 Enoxaparin 40 Mg/0.4 Ml Syringe SUB-Q 40 mg DAILY ANNAMARIA Admin
--- NOTE | 2021-06-12 11:17 | PM.IMPN ---
Progress Note: A&P Assessment and Plan (1) Acute respiratory failure: Qualifiers: Respiratory failure complication: hypercapnia Qualified Code(s): J96.02 - Acute respiratory failure with hypercapnia Code(s): J96.00 - Acute respiratory failure, unspecified whether with hypoxia or hypercapnia Status: Acute Assessment and Plan: Resolved acute Respiratory failure secondary to sepsis, perforated bowel and general anesthesia Patient was extubated on 06/10/2021. Currently patient is saturating 90-95% on room air. Encourag e incentive spirometry. (2) Sepsis: Qualifiers: Sepsis type: sepsis due to unspecified organism Sepsis acute organ dysfunction status: with acute organ dysfunction Severe sepsis acute organ dysfunction type: acute renal failure Acute renal failure type: with acute tubular necrosis Severe sepsis shock status: without septic shock Qualified Code(s): A41.9 - Sepsis, unspecified organism; R65.20 - Severe sepsis without septic shock; N17.0 - Acute kidney failure with tubular necrosis Code(s): A41.9 - Sepsis, unspecified organism Status: Acute Assessment and Plan: Resolving acute nonoliguric kidney injury, likely prerenal versus ATN in the setting of sepsis secondary to bowel perforation peritonitis, status post exploratory laparotomy hemicolectomy. Currently patient hemodynamically stable with blood pressure in the 143/86-164/89 range. Kidney function is improving slowly.. Creatinine down to 1.3. Continue close monitoring. Sepsis is likely secondary to bowel perforation and incarcerated hernia, peritonitis. Currently patient is receiving IV antibiotics Now status post ex lap hemicolectomy Please refer to general surgery note for details Patient has underwent aggressive IV resuscitation but likely is third-spacing. Continue IV fluids at 75 mL/hour Continue IV Zosyn and Diflucan Cultures ordered and have remained negative at the time of this dictation. (3) Anemia: Code(s): D64.9 - Anemia, unspecified Status: Acute Assessment and Plan: Moderate normochromic normocytic anemia with hemoglobin of 8.3, stable and well tolerated. Previously patient had dropped her hemoglobin on 06/08 and was given 2 units of PRBCs no obvious evidence of bleeding was identified. There was no coagulation dysfunction. There may have been an element of dilutional anemia. CT abdomen pelvis did not show any retroperitoneal hemorrhage. Continue close clinical monitoring. Continue PPI IV q.12 hours. Hold Lovenox and switch to SCDs for now. (4) TEOFILO (acute kidney injury): Code(s): N17.9 - Acute kidney failure, unspecified Status: Acute Assessment and Plan: Non oliguric acute kidney injury, improving. Per nephrology evaluation, suspect ATN from sepsis/infection and likely pre-renal factors. Kidney imaging without obstruction. CPK unremarkable. Kidney function has improved after aggressive IVF resusitation. Creatinine peaked at 3.0, came down to 1.9 yesterday and today is down to 1.3. This is very encouraging. Monitor daily BMP; replace electrolytes as needed follow trend of repeat labs and UOP Continue cautious IV fluids resuscitation while monitoring urine output electrolytes and creatinine (5) Perforation bowel: Code(s): K63.1 - Perforation of intestine (nontraumatic) Status: Acute Assessment and Plan: Surgical management as above. Patient is making good progress. Encourage out of bed to chair. (6) Peritonitis: Code(s): K65.9 - Peritonitis, unspecified Status: Acute Assessment and Plan: Continue IV antibiotic as above (7) Incarcerated hernia: Code(s): K46.0 - Unspecified abdominal hernia with obstruction, without gangrene Status: Resolved Assessment and Plan: Surgical management as above (8) Acidosis: Code(s): E87.2 - Acidosis Status: Acute Assessment and Plan: Reso
[2021-06-12 12:00] VITALS: PULSE 84
--- NOTE | 2021-06-12 12:00 | PCOTNOTE ---
Attempted to see pt. this am, however pt. verbalized returning to bed recently and feeling unwell due to increased medication at this time declining participation in therapy at this time.
[2021-06-12 14:00] VITALS: BP 159/85; PULSE 79; RESP 17; TEMP 36.4; O2SAT 97
--- NOTE | 2021-06-12 15:45 | PCOTNOTE ---
On 06/12/21, the student, Triny Torres, provided care and completed [facility] documentation on this patient. I have reviewed the student's documentation and agree with the findings.
[2021-06-12 16:00] VITALS: PULSE 79
[2021-06-12 20:00] VITALS: PULSE 70; PULSE 81; RESP 18; O2SAT 97
[2021-06-12] MEDS: guaiFENesin/DEXTROMETHORPHAN 10 ML UDC PO (23:47)
[2021-06-13] VITALS: BP 161/85; PULSE 91; RESP 20; TEMP 36.2; O2SAT 97
[2021-06-13] MEDS: ALBUTEROL SULFATE NEB 2.5 MG/0.5 ML INH INHALATION (00:34)
[2021-06-13 01:06] VITALS: PULSE 70; RESP 18
[2021-06-13 04:00] VITALS: BP 152/82; PULSE 83; RESP 18; TEMP 36.4; O2SAT 98
[2021-06-13 07:05] LABS: Hemoglobin 10.3 g/dL (12.0-15.0); Mean Corpuscular HGB Conc 32.2 g/dl (32-36); Mean Platelet Volume 9.2 fl (7.4-10.4); Platelet Count Result 218 k/mm3 (150-375); Red Blood Count 3.68 M/mm3 (4.2-5.4); Red Cell Distribution Width 14.7 % (11.5-14.5); White Blood Count 10.2 K/mm3 (4.5-10.0)
[2021-06-13 07:17] LABS: Anion Gap 10 mmol/L (8-16); Blood Urea Nitrogen 24 mg/dL (7-17); Calcium 8.4 mg/dL (8.4-10.2); Carbon Dioxide 25 mmol/L (22-30); Chloride 102 mmol/L (98-107); Estimated CRCL calculation 63 ml/min; Estimated Glomerular Filt Rate 44; Glucose 149 mg/dL (65-110); Potassium 3.4 mmol/L (3.4-5.0); Sodium 137 mmol/L (137-145)
[2021-06-13 08:00] VITALS: BP 167/85; PULSE 79; RESP 18; TEMP 35.8; O2SAT 98
[2021-06-13] MEDS: ENOXAPARIN 40 MG/0.4 ML SYRINGE SUB-Q (10:16)
[2021-06-13] MEDS: PANTOPRAZOLE 40 MG TABLET PO (10:16)
[2021-06-13] MEDS: FLUCONAZOLE 400 MG/NACL 200 ML 400 MG/200 ML BAG 100 MG IVPB (10:17)
[2021-06-13] MEDS: guaiFENesin/DEXTROMETHORPHAN 10 ML UDC PO (10:19)
[2021-06-13 12:00] VITALS: BP 152/86; PULSE 80; RESP 18; TEMP 35.9; O2SAT 98
--- NOTE | 2021-06-13 12:20 | PCPTNOTE ---
Patient declined treatment this session stating she will be discharged today. Patient states she will have family support and assist at home. [ ]
--- NOTE | 2021-06-13 12:50 | PCOTNOTE ---
On 06/13/21, the student, Triny Torres, provided care and completed [facility] documentation on this patient. I have reviewed the student's documentation and agree with the findings.
--- NOTE | 2021-06-13 13:08 | PM.IMPN ---
Progress Note: A&P Assessment and Plan (1) Sepsis: Qualifiers: Sepsis type: sepsis due to unspecified organism Sepsis acute organ dysfunction status: with acute organ dysfunction Severe sepsis acute organ dysfunction type: acute renal failure Acute renal failure type: with acute tubular necrosis Severe sepsis shock status: without septic shock Qualified Code(s): A41.9 - Sepsis, unspecified organism; R65.20 - Severe sepsis without septic shock; N17.0 - Acute kidney failure with tubular necrosis Code(s): A41.9 - Sepsis, unspecified organism Status: Acute Assessment and Plan: Resolving acute nonoliguric kidney injury, likely prerenal versus ATN in the setting of sepsis secondary to bowel perforation peritonitis, status post exploratory laparotomy hemicolectomy. Currently patient hemodynamically stable with blood pressure in the 143/86-164/89 range. Creatinine down to 1.3. Creatinine is expected to continue to improve slowly. Continue close monitoring. Sepsis is likely secondary to bowel perforation and incarcerated hernia, peritonitis. Currently patient is receiving IV antibiotics Now status post adhesiolysis, right hemicolectomy, and repair of multiple incisional hernias Bowel sounds still hypoactive Patient has received 7 days of IV antibiotics. Surgery is following. Patient is threatening to leave AMA. She will be discharged home with close outpatient following on p.o. antibiotics. Cultures ordered and have remained negative at the time of this dictation. (2) Anemia: Code(s): D64.9 - Anemia, unspecified Status: Acute Assessment and Plan: Moderate normochromic normocytic anemia with hemoglobin of 8.3, stable and well tolerated. Previously patient had dropped her hemoglobin on 06/08 and was given 2 units of PRBCs no obvious evidence of bleeding was identified. There was no coagulation dysfunction. There may have been an element of dilutional anemia. CT abdomen pelvis did not show any retroperitoneal hemorrhage. Continue close clinical monitoring. Continue PPI IV q.12 hours. DVT prophylaxis was performed with SCDs. (3) TEOFILO (acute kidney injury): Code(s): N17.9 - Acute kidney failure, unspecified Status: Acute Assessment and Plan: Non oliguric acute kidney injury, improving. Per nephrology evaluation, suspect ATN from sepsis/infection and likely pre-renal factors. Kidney imaging without obstruction. CPK unremarkable. Kidney function has improved after aggressive IVF resusitation. Creatinine is down to 1.3. This is very encouraging. Monitor daily BMP; replace electrolytes as needed follow trend of repeat labs and UOP Continue cautious IV fluids resuscitation while monitoring urine output electrolytes and creatinine (4) Perforation bowel: Code(s): K63.1 - Perforation of intestine (nontraumatic) Status: Acute Assessment and Plan: Surgical management as above. Patient is making good progress. Encourage out of bed to chair. (5) Peritonitis: Code(s): K65.9 - Peritonitis, unspecified Status: Acute Assessment and Plan: Continue IV antibiotic as above (6) Incarcerated hernia: Code(s): K46.0 - Unspecified abdominal hernia with obstruction, without gangrene Status: Acute Assessment and Plan: Surgical management as above (7) Acidosis: Code(s): E87.2 - Acidosis Status: Acute Assessment and Plan: Resolved. Patient now mildly alkalotic both respiratory and metabolic bicarb IV fluids has been changed to normal saline. (8) Sinus tachycardia: Code(s): R00.0 - Tachycardia, unspecified Status: Acute Assessment and Plan: Resolved. (9) Acute respiratory failure: Qualifiers: Respiratory failure complication: hypercapnia Qualified Code(s): J96.02 - Acute respiratory failure with hypercapnia Code(s): J96.00 - Acute respiratory failure, unspecified whether w
--- NOTE | 2021-06-13 15:15 | PCNFU ---
Nutrition Follow-Up Complete: Inadequate Oral Intake as related to mechanical ventilation as evidenced by NPO. Goal: Meet estimated nutritional needs Patient is progressing towards goal. No new goal at this time. Pt current nutrition a full liquid diet. Last recorded weight is 118 kg. Recommend re-weighing prior to discharge. Bowel Motility: + BM 06/12/2021 Labs Reviewed: Hgb 10.3, Hct 32.0, GFR 44, BUN 24, Cr 1.3, Glu 149 Meds Noted: Albuterol, Lovenox, Glucose, Protonix, Skin: Deep tissue pressure to the right nose Additional Notes: Patient is eating little to nothing on her current clear liquid diet order and refusing meals. Pt. has poor appetite and does not want to eat. Spoke with pt. nurse who is going to add ensure compact BID providing an additional 220 calories and 9 grams of protein to help increase oral intake. Will monitor every 3 days.
[2021-06-13] MEDS: HYDROcodone/acetaminophen (*CRX) 5-325 MG TABLET 1 TAB PO (15:47)
[2021-06-13 15:52] VITALS: BP 152/90; PULSE 80; RESP 19; TEMP 36.6; O2SAT 99
--- NOTE | 2021-06-13 16:15 | P.PNNP_ITS ---
Progress Note: A&P Assessment and Plan (1) TEOFILO (acute kidney injury): Code(s): N17.9 - Acute kidney failure, unspecified Status: Acute Assessment and Plan: * suspect ATN from sepsis/infection and likely pre-renal factors * repeat imaging without obstruction * CPK okay * Creatinine continues to improve. Stable at 1.3. * On no diuretics. * Urine output is doing well. (2) Sepsis: Qualifiers: Sepsis type: sepsis due to unspecified organism Sepsis acute organ dysfunction status: with acute organ dysfunction Severe sepsis acute organ dysfunction type: acute renal failure Acute renal failure type: with acute tubular necrosis Severe sepsis shock status: without septic shock Qualified Code(s): A41.9 - Sepsis, unspecified organism; R65.20 - Severe sepsis without septic shock; N17.0 - Acute kidney failure with tubular necrosis Code(s): A41.9 - Sepsis, unspecified organism Status: Acute Assessment and Plan: * due to bowel perforation, incarcerated hernia, and peritonitis * Blood cultures negative. * On Zosyn and fluconazole. * Afebrile * Blood pressure seems to be doing pretty well. (3) Acute respiratory failure: Qualifiers: Respiratory failure complication: hypercapnia Qualified Code(s): J96.02 - Acute respiratory failure with hypercapnia Code(s): J96.00 - Acute respiratory failure, unspecified whether with hypoxia or hypercapnia Status: Acute Assessment and Plan: * Resolved. (4) Perforation bowel: Code(s): K63.1 - Perforation of intestine (nontraumatic) Status: Acute Assessment and Plan: * as noted by operative findings and admission imaging * presumed to be secondary to incarcerated hernia and associated bowel infarction * s/p adhesiolysis, right hemicolectomy, and repair of multiple incisional hernias * Bowel sounds still hypoactive * General Surgery following (5) Hyperkalemia: Code(s): E87.5 - Hyperkalemia Status: Acute Assessment and Plan: * resolved (6) Metabolic acidosis: Code(s): E87.2 - Acidosis Status: Acute Assessment and Plan: * resolved Will continue to follow. Subjective Date/time seen: 06/13/21 16:15 Interval history: Katlin is feeling a little bit better. Pain is better. Does not have much of an appetite. Exam Narrative: General: ill appearing female; extubated Heart: normal S1 and S2; no rub; tachycardic Lungs: fairly clear anteriorly. Abdomen: dressings noted; hypoactive bowel sounds Extremities: no edema or cyanosis Skin: No rash Objective Data Vital Signs Vital Signs: Vital Signs - 24 hr 06/12/21 20:00 06/13/21 00:00 06/13/21 01:06 Temperature 36.2 C L Pulse Rate 70 91 70 Respiratory Rate 18 20 18 Blood Pressure 161/85 H Pulse Oximetry 97 97 06/13/21 04:00 06/13/21 08:00 06/13/21 12:00 Temperature 36.4 C 35.8 C L 35.9 C L Pulse Rate 83 79 80 Respiratory Rate 18 18 18 Blood Pressure 152/82 H 167/85 H 152/86 H Pulse Oximetry 98 98 98 06/13/21 15:52 Temperature 36.6 C Pulse Rate 80 Respiratory Rate 19 Blood Pressure 152/90 H Pulse Oximetry 99 Intake/Output Intake/Output: Intake & Outp
--- NOTE | 2021-06-13 16:15 | PM.PNNEP ---
Progress Note: A&P Assessment and Plan (1) TEOFILO (acute kidney injury): Code(s): N17.9 - Acute kidney failure, unspecified Status: Acute Assessment and Plan: suspect ATN from sepsis/infection and likely pre-renal factors repeat imaging without obstruction CPK okay Creatinine continues to improve. Stable at 1.3. On no diuretics. Urine output is doing well. (2) Sepsis: Qualifiers: Sepsis type: sepsis due to unspecified organism Sepsis acute organ dysfunction status: with acute organ dysfunction Severe sepsis acute organ dysfunction type: acute renal failure Acute renal failure type: with acute tubular necrosis Severe sepsis shock status: without septic shock Qualified Code(s): A41.9 - Sepsis, unspecified organism; R65.20 - Severe sepsis without septic shock; N17.0 - Acute kidney failure with tubular necrosis Code(s): A41.9 - Sepsis, unspecified organism Status: Acute Assessment and Plan: due to bowel perforation, incarcerated hernia, and peritonitis Blood cultures negative. On Zosyn and fluconazole. Afebrile Blood pressure seems to be doing pretty well. (3) Acute respiratory failure: Qualifiers: Respiratory failure complication: hypercapnia Qualified Code(s): J96.02 - Acute respiratory failure with hypercapnia Code(s): J96.00 - Acute respiratory failure, unspecified whether with hypoxia or hypercapnia Status: Acute Assessment and Plan: Resolved. (4) Perforation bowel: Code(s): K63.1 - Perforation of intestine (nontraumatic) Status: Acute Assessment and Plan: as noted by operative findings and admission imaging presumed to be secondary to incarcerated hernia and associated bowel infarction s/p adhesiolysis, right hemicolectomy, and repair of multiple incisional hernias Bowel sounds still hypoactive General Surgery following (5) Hyperkalemia: Code(s): E87.5 - Hyperkalemia Status: Acute Assessment and Plan: resolved (6) Metabolic acidosis: Code(s): E87.2 - Acidosis Status: Acute Assessment and Plan: resolved Will continue to follow. Subjective Date/time seen: 06/13/21 16:15 Interval history: Katlin is feeling a little bit better. Pain is better. Does not have much of an appetite. Exam Narrative: General: ill appearing female; extubated Heart: normal S1 and S2; no rub; tachycardic Lungs: fairly clear anteriorly. Abdomen: dressings noted; hypoactive bowel sounds Extremities: no edema or cyanosis Skin: No rash Objective Data Vital Signs Vital Signs: Vital Signs - 24 hr 06/12/21 20:00 06/13/21 00:00 06/13/21 01:06 Temperature 36.2 C L Pulse Rate 70 91 70 Respiratory Rate 18 20 18 Blood Pressure 161/85 H Pulse Oximetry 97 97 06/13/21 04:00 06/13/21 08:00 06/13/21 12:00 Temperature 36.4 C 35.8 C L 35.9 C L Pulse Rate 83 79 80 Respiratory Rate 18 18 18 Blood Pressure 152/82 H 167/85 H 152/86 H Pulse Oximetry 98 98 98 06/13/21 15:52 Temperature 36.6 C Pulse Rate 80 Respiratory Rate 19 Blood Pressure 152/90 H Pulse Oximetry 99 Intake/Output Intake/Output: Intake & Output 06/10/21 06/11/21 06/12/21 06/13/21 23:59 23:59 23:59 23:59 Intake Total 2320 970 2440 300 Output Total 1878 1970 1020 5 Balance 442 -1000 1420 295 Meds/Results Medications: Active Medications Generic Name Dose Route Start Last Admin Trade Name Freq PRN Reason Stop Dose Admin Acetaminophen 650 mg 06/06/21 14:08 Acetaminophen 325 Mg Tablet PO Q4H PRN Mild Pain (1-3) or Fever Hydrocodone Bitart/Acetaminophen 1 tab 06/09/21 14:29 06/13/21 15:47 Hydrocodone/Acetaminophen (*Crx) 5-325 Mg Tablet PO 1 tab Q4H PRN Administration Pain Rated 4-6 Albuterol 2.5 mg 06/12/21 23:12 06/13/21 00:34 Albuterol Sulfate Neb 2.5 Mg/0.5 Ml Inh INHALATION 2.5 mg Q4HRT PRN
--- NOTE | 2021-06-13 16:17 | PM.DS ---
DS: Admitting Diagnosis Discharge Date 06/13/2021 Admitting Diagnosis acute bowel infarction incarcerated incisional hernias peritonitis sepsis morbid obesity DS: Discharge Diagnosis Discharge Diagnosis (1) Incarcerated hernia: Code(s): K46.0 - Unspecified abdominal hernia with obstruction, without gangrene Status: Acute (2) Acute bowel infarction: Code(s): K55.069 - Acute infarction of intestine, part and extent unspecified Status: Acute (3) Perforation bowel: Code(s): K63.1 - Perforation of intestine (nontraumatic) Status: Acute (4) Fecal peritonitis: Code(s): K65.8 - Other peritonitis Status: Acute (5) Sepsis: Qualifiers: Sepsis type: sepsis due to unspecified organism Sepsis acute organ dysfunction status: with acute organ dysfunction Severe sepsis acute organ dysfunction type: acute renal failure Acute renal failure type: with acute tubular necrosis Severe sepsis shock status: without septic shock Qualified Code(s): A41.9 - Sepsis, unspecified organism; R65.20 - Severe sepsis without septic shock; N17.0 - Acute kidney failure with tubular necrosis Code(s): A41.9 - Sepsis, unspecified organism Status: Acute (6) Acute respiratory failure: Qualifiers: Respiratory failure complication: hypercapnia Qualified Code(s): J96.02 - Acute respiratory failure with hypercapnia Code(s): J96.00 - Acute respiratory failure, unspecified whether with hypoxia or hypercapnia Status: Acute (7) TEOFILO (acute kidney injury): Code(s): N17.9 - Acute kidney failure, unspecified Status: Acute (8) Morbid obesity: Code(s): E66.01 - Morbid (severe) obesity due to excess calories Status: Chronic DS: Summary Hospital Course Hospital Course: Patient is a 46-year-old woman who presented to the emergency room late on 06/05 with severe abdominal pain. She had obvious herniation in the right upper quadrant. She had tenderness there as well. [place] [id number]. She had an elevated serum lactate of 4.6 which subsequently winsome to 5.7. CT scan of the abdomen and pelvis showed 2 adjacent right upper quadrant hernias with evidence of colon incarceration and strangulation possibly with infarction. There was also a left lower quadrant hernia. This also contained bowel but had no suggestion of ischemia. The patient and her reported she had had previous bowel resection here at [place] [facility] followed by closure of her colostomy. Later she had a hernia repair. Review of old records on the computer showed that in August of 2001 she presented with a huge abscess in the lower abdominal midline due to diverticulitis. She underwent sigmoidectomy with end descending colostomy. Small bowel attached to the abscess was gangrenous and small bowel resection was required. She weighed over 300 lb at that time. She returned to surgery about 5 months later on 01/27/2002 and underwent laparoscopic closure of her end descending colostomy. She developed hernias and was taken back to surgery for repair of multiple incisional hernias December 06, 2002. Review of this operative note shows that she had not only a midline hernia but also small right upper quadrant hernias and a left lower quadrant hernia where her colostomy site had been located. The colostomy hernia was closed with PDS suture intra-abdominally. The midline, right upper quadrant and colostomy hernia sites were all repaired with underlay Marlex mesh at the time of the surgery in 2002. I was notified early in the morning of 06 06 at that the patient had incarcerated incisional hernias with evidence of peritonitis and sepsis. She was taken to surgery that morning emergently. She had a very difficult surgery as there was indeed many adhesions to the previous underlay Marlex mesh hernia repair. She had large right upper quadrant recurrent incisional hernias that had evolved in to
== END 2021-06-13 17:15 | disposition home or self-care (01) | DRG 710 ==
LOC: ANHED 04:28 → ANH2MED 08:08 → ANHED 08:21 → ANH2MED 08:36 → ANHICU 12:17 → ANH3MEDSUR 06-10 11:01
PROVIDERS: Internal Medicine; Internal Medicine Nephrology; Admitting Provider Surgery; Emergency Provider Emergency Medicine; Visit Provider Surgery
PROC: 0WQF0ZZ Repair Abdominal Wall, Open Approach (ICD-10-PCS; principal; 2021-06-06 09:00)
DX: A41.9 Sepsis, unspecified organism (principal); R65.20 Severe sepsis without septic shock; N17.0 Acute kidney failure with tubular necrosis; J96.02 Acute respiratory failure with hypercapnia; K55.049 Acute infarction of large intestine, extent unspecified; K63.1 Perforation of intestine (nontraumatic); K43.0 Incisional hernia with obstruction, without gangrene; K66.0 Peritoneal adhesions (postprocedural) (postinfection); K65.8 Other peritonitis; E66.01 Morbid (severe) obesity due to excess calories; Z68.41 Body mass index [BMI] 40.0-44.9, adult; E87.2 Acidosis; E87.5 Hyperkalemia; D64.9 Anemia, unspecified
CPT/HCPCS: 36415; 36430; 36600; 71045; 74176; 74177; 80048; 80053; 80069; 81001; 82375; 82550; 82805; 82948; 83050; 83605; 83690; 83735; 84100; 85014; 85018; 85025; 85027; 85384; 85610; 85730; 86850; 86900; 86901; 86920; 87040; 88302; 88307; 93005; 93306; 94002; 94003; 94640; 96361; 96365; 96366; 96367; 96368; 96372; 96375; 96376; 97116; 97162; 97166; 97530; 97535; 99285; A9270; C1751; C9113; J0131; J0610; J1170; J1450; J1650; J1815; J2250; J2270; J2405; J2543; J2704; J3010; J3475; J3480; J7030; J7040; J7050; J7120; P9016; P9045; P9047; Q9967

== ENCOUNTER → 2021-08-27 01:57 | Outpatient (CLI) | payer BC, SELFPAY ==
[2021-08-27 11:08] LABS: SARS-CoV-2 RNA PCR Negative
== END ==
PROVIDERS: Visit Provider Surgery
DX: Z01.812 Encounter for preprocedural laboratory examination (principal); Z20.822 Contact with and (suspected) exposure to COVID-19
CPT/HCPCS: C9803; U0003; U0005

== ENCOUNTER 2021-08-28 00:17 | Day surgery (SDC) | payer BC, SELFPAY ==
[2021-08-26 10:22] VITALS: BMI 32.3
--- NOTE | 2021-08-26 10:35 | PC.NURSE ---
Report to the Outpatient Waiting Room, entrance under the green pavilion located off [facility], at time 1130 on date 08/28/21. OR Time: 1330. - You and your visitor will be asked a series of questions to screen for COVID 19 for your protection. - A mask is required within the hospital. One visitor will be allowed to accompany the patient into the hospital. Patients visitor will be instructed to remain with patient at all times or leave the building. We will allow the visitor to come back to the postoperative area when patient is ready. Preoperative COVID Testing Requirements: COVID TEST 08/27 AT 0900 No COVID Test needed if: (proof is required; if not received patient will have Rapid Test prior to entry) - Patient has received COVID Vaccine at least 14 days prior to procedure date or - Patient has positive COVID test result within last 90 days of surgery date. COVID Test needed if above criteria is not met If not COVID vaccinated a COVID test must be conducted within 72 hours of surgery and patient is asked to isolate self from time of testing until procedure. You will go to the [facility] for your COVID testing. The [facility] site is located at the corner of [address] [facility]. You will only be called if COVID results are positive and your surgeon may reschedule your elective surgery date. Patients may have clear liquids (water, carbonated beverages, clear teas, apple juice) until 3 hours prior to surgery with a maximum of 20 ounces. - No food from midnight until time of surgery Take the following medications with a SIP of water the morning of surgery: PAIN PILL (IF NEEDED) Medications to discontinue per physician: VITAMINS/SUPPLEMENTS Date to take last dose: NO MORE UNTIL AFTER SURGERY Please no make-up, nail swiss, hairspray, perfume, deodorant, or body powder the day of surgery. No jewelry (including any body piercings) or valuables the day of surgery, leave them at home. Please take a shower or bath the night before, or the morning of, surgery with an antibacterial soap. Wear comfortable, loose fitting clothing. - Jewelry must be removed prior to entering the operating room. Rings and piercings that are not removed may be cut off. - The hospital will not accept responsibility for valuables. - Please leave all valuables, including medications, at home the day of surgery. If you are going home after surgery, a licensed drivers license examiner must drive you home. - NO public transportation without another adult. - We recommend that an adult stay with you for 24 hours following discharge. - We also recommend that you do not drive, make important decision, drink alcoholic beverages, or take any drugs that were not prescribed by your health care provider for at least 24 hours after your discharge time. Follow any additional instructions given to you from your surgeon. Telephone instructions given to GLENDA RAMÍREZ and asked if any additional questions and then verbalized understanding. Patient advised to call surgeon office or pre surgery nurse liaison [phone] if any additional questions.
--- NOTE | 2021-08-27 13:39 | WPDANESEPPF ---
Anes - Initial Pre Proc Eval Procedure: Operation Date: 08/28/21 13:30 Proposed Procedures p Excisional Debridement of Chronic Abdominal Wound - Luisito Henning MD Date/Time: 08/27/21 13:39 Surgeon: Luisito Henning MD Pre Op Diagnosis: chronic abdominal pain Patient Data Age: 46 Gender: F Height: 1.68 m Weight: 90.72 kg Allergies Allergy/AdvReac Type Severity Reaction Status Date / Time No Known Allergies Allergy Verified 08/28/21 11:53 Home Medications Medication Instructions Recorded Confirmed Type hydrocodone 5 mg-acetaminophen 325 1 tablet PO Q6H PRN #20 tablet 07/20/21 08/28/21 Rx mg tablet multivitamin 1 tablet PO DAILY 08/26/21 08/28/21 History Patient hx anesthesia problems: none Family hx anesthesia problems: none Results Review: All pre-operative results and documents have been reviewed as part of the pre-operative evaluation. [facility] Past Medical History Medical History Morbid obesity Surgical History Surgical History H/O right hemicolectomy 06/06/ adhesiolysis, right hemicolectomy, repair multiple incisional hernias. History of section History of creation of ostomy Social History Social History Smoking packs per day: 1 Smoking cigarettes per day: 20.0 Years smoked: 15 Smoking pack-years: 15.00 Smoking status: Never smoker Tobacco type: cigarettes Smoking end date: 06/22/11 Alcohol intake: current Substance use: never Substance use type: does not use Living arrangements: with family Spiritual care concerns: No Anes - Eval Final PreProcedure Day of Procedure 08/27/21 13:39 Patient weight: obese Heart: regular rate and rhythm Lungs: clear to auscultation and normal air movement Airway: Mallampati scale class II Neurological: alert and oriented Last oral intake: >/= 8 hours ASA classification: III Emergent: no Anesthetic plan: proceed Anesthesia type and monitoring: general GIVS and standard monitoring Results Review: All pre-operative results and documents have been reviewed as part of the pre-operative evaluation. Informed Consent: The patient's anesthetic plan and its attendant risks and benefits were discussed with the patient/family/POA. Questions were solicited and answers provided to the satisfaction of the patient/family/POA.
[2021-08-28 11:42] VITALS: BP 154/92; PULSE 85; RESP 16; TEMP 36.7; O2SAT 100
[2021-08-28] MEDS: LACTATED RINGERS 1,000 ML 30 ML IV CONT ×2 (12:47→15:24)
--- NOTE | 2021-08-28 14:05 | WPDHPUPDATE1 ---
History and Physical Update Update Date/Time: 08/28/21 14:05 History and Physical has been reviewed, including an updated exam of the patient. There are NO changes in the patient's condition. Risks, benefits, and alternatives have been discussed and questions answered. Patient agrees to proceed with procedure.
[2021-08-28] MEDS: ceFAZolin 2 GM/D5W 50 ML 2 GM/50 ML BAG IVPB (14:20)
[2021-08-28] MEDS: BUPIVACAINE/EPINEPHRINE 0.25% 10 ML VIAL 30 ML INFILTRATE (14:35)
[2021-08-28 15:24] VITALS: BP 148/91; PULSE 87; RESP 20; O2SAT 100
--- NOTE | 2021-08-28 15:35 | W.PM.PROC2 ---
Procedure Note - Detailed Date of Procedure 08/28/21 Pre-op Diagnosis Nonhealing open abdominal wound Post-op Diagnosis Same Procedure Performed Excisional debridement abdominal wall mesh, excisional debridement skin subcutaneous and muscle 8 cm x 3 cm x 2 cm Surgeon Luisito Henning MD Strategy Intern Aaliyah KIRK Anesthesia General (G IV S) and Local (0.25% Marcaine with epinephrine) Indications Patient had a difficult abdominal surgery involving incarcerated and perforated ascending colon resulting in fecal peritonitis and contaminated abdominal wall mesh from previous mesh hernia repair. She had been recovering well but has a persistent chronic open abdominal wound in the upper portion of the incision that tracks at least 5 cm to the patient's right. She is taken to surgery now for excisional debridement. Findings There was exposed mesh in the wound to the extent of the tunneling. The length of the wound ended up being 8 cm rather than 5 or 6. The posterior, or base, of the wound also had exposed mesh. When this was excised, we encountered small intestine that was adherent to the under surface. Fortunately, no evidence of bowel injury was seen. I did excise the exposed unincorporated mesh involved in the wound. Description of Procedure The patient was taken to surgery and induced into anesthesia with general under IV sedation. Prep and drape of the abdomen was carried out. A curved clamp was used and passed into the midline wound opening down the tunnel. With the patient under anesthesia, this seemed to track farther than it had when the patient was examined awakened. I marked the extent of the tracking on the skin. I then infiltrated local anesthetic into the overlying skin and subcutaneous throughout the overlying tract. With a clamp in the tract and elevating the overlying skin, I excised this overlying skin. It was discarded. Cautery was used for hemostasis. The base of the wound showed some pale granulation tissue but mesh at the lateral most aspect. There were no loose mesh ends. There was no purulent material or signs of acute inflammation. It appeared this was contaminated mesh but not infected. I started to excise the wound edges and base of the wound to remove the mesh. Under the posterior aspect of the wound, I noticed we were in the peritoneal cavity with small intestine adherent to the overlying abdominal wall. At this point, I excised the areas that were not adherent and more less free. I then used careful sharp dissection and freed the small intestine from the overlying tissue that was the chronic wound. No bowel injury occurred or was noted throughout the procedure. I was then able to excise the remainder of the abdominal wall wound containing the mesh without incident. This was sent as chronic open abdominal wound to pathology. I then took down surrounding adhesions of small intestine and some properitoneal fat to the anterior abdominal wall fascia. This went well also. I did notice some additional mesh on the inside of the abdominal wall that was not adherent. I excised the unincorporated edges of mesh. I then used 1. PDS and with a running closure, closed the fascia in a transverse fashion back to the midline. The wound nurses had been called to the wound and then replaced the patient's wound VAC and placed a new wound VAC over the wound as had been planned. This went well. Patient was awakened and taken to outpatient recovery in good condition. Estimated blood loss was 5 cc. No complications were noted. Estimated Blood Loss -5 Drains Yes (Wound VAC) Packing No Pathology Yes (Chronic abdominal wound, abdominal wall mesh) Complications No immediate complications Condition Stable Disposition Same day
[2021-08-28 16:12] VITALS: BP 149/88; PULSE 88; RESP 20
[2021-08-28 16:25] VITALS: BP 168/82; PULSE 80; RESP 20
== END 2021-08-28 16:36 | disposition home or self-care (01) ==
PROVIDERS: Visit Provider Surgery
PROC: (CPT 11043; principal; 2021-08-28 13:30)
DX: S31.109A Unspecified open wound of abdominal wall, unspecified quadrant without penetration into peritoneal cavity, initial encounter (principal); T81.89XA Other complications of procedures, not elsewhere classified, initial encounter; Y83.8 Other surgical procedures as the cause of abnormal reaction of the patient, or of later complication, without mention of misadventure at the time of the procedure; Z90.49 Acquired absence of other specified parts of digestive tract; Z87.891 Personal history of nicotine dependence; E66.9 Obesity, unspecified; Z68.32 Body mass index [BMI] 32.0-32.9, adult
CPT/HCPCS: 11043; 11046; 88300; 88304; A9270; J0690; J2250; J2704; J3010; J7120

== ENCOUNTER 2021-10-07 07:31 | Outpatient (RCR) | payer BC, MEDICAID, SELFPAY ==
[2021-07-11 09:00] VITALS: BMI 33.0
--- NOTE | 2021-07-15 12:50 | WPDWOUNDNOTE ---
Wound Care Note Date/Time: 07/15/21 12:50 History: Patient presented June 06 with incarcerated right upper quadrant incisional hernia. At surgical repair, she had infarction and perforation of the hepatic flexure with fecal spillage and fecal peritonitis. She had had previous mesh repair of incisional hernias which had recurred despite these repairs. She underwent right colectomy with hernia repair. No additional mesh was used. She was quite ill afterwards being in the ICU on a mechanical ventilator and also with acute kidney injury. She improved postoperatively and was eventually discharged. At discharge, it was noted the most cephalad aspect of the midline incision had superficial skin opening and was cleansed with dressing changes ordered. Wound history: At the patient's 1st office visit she was noted to have more of an opening but still fairly superficial at the epigastric aspect of the previous incision. Wet to dry dressings were started. At her subsequent office visit, there was purulent material in the wound and exposed mesh. Mesh was debrided and the purulent fluid was evacuated. She was then referred to the Wound Clinic. She was initially seen in the wound clinic on 07/11/2021. There was still purulent fluid in the wound. There was also some exudate and slough. She was started on Santyl dressing changes with silver rope. Some additional mesh was excised. All suture material and mesh that was able to be found in the wound was excised. She is seen now for close follow-up 4 days after her last visit. There have been 2 areas more distal on the incision that have superficial skin openings. Wound approximation: No ( The 2 superficial openings are only 0.2 cm wide and 0.2 cm deep. ) Wound width: 1.0 cm Wound length: 1.7 cm Wound depth: 2.3 cm Drainage: mostly serosanguineous but still some yellow white purulent fluid. Much less than on previous visits Surrounding tissue appearance: dry and healthy Tunnelin.3 cm tunneling at 8:00 a.m.. Percentage granulation tissue: Ninety Treatment/Procedures: Wound cultures take. Plan is to get approval for wound VAC and start this on the uppermost wound. Dressings: mupirocin will be added to all wound beds as well as santal. Silver alginate rope was applied as well. All wounds covered with 4 x 4 gauze and ABD. Assessment and Plan Assessment and plan (1) Open abdominal wall wound: Code(s): S31.109A - Unspecified open wound of abdominal wall, unspecified quadrant without penetration into peritoneal cavity, initial encounter Status: Acute Assessment and Plan: add mupirocin to Santyl dressing changes. Silver alginate rope in the wound and to the superficial wounds. Cover with 4x4s and ABD. Recheck in wound clinic again on 07/18/2021. Review of Systems Review of Systems: All systems reviewed & are unremarkable except as noted in HPI and below ( Wound note and below) Constitutional: Constitutional: Reports as per HPI, Denies chills, Denies fever(s), Reports lethargy and Denies night sweats Exam Const: General: cooperative, comfortable, no acute distress, alert and awake Nutritional Appearance: obese Orientation/consciousness: patient oriented x3 GI: Inspection: incision ( open wound upper most aspect incision), obesity, no visible herniation and other ( superficial wounds above the umbilicus but more caudad than larger epigast) GI Palp: No Hernia present
--- NOTE | 2021-07-21 12:34 | WPDWOUNDNOTE ---
Wound Care Note Date/Time: 07/11/21 08:34 Slough debrided from wound bed in wound clinic. Wound still about 2.5 cm deep and 2 x 2 cm length and width. Purulent drainage in the wound. Some mesh excised with the debridement. Assessment and Plan Assessment and plan (1) Open abdominal wall wound: Code(s): S31.109A - Unspecified open wound of abdominal wall, unspecified quadrant without penetration into peritoneal cavity, initial encounter Status: Chronic Assessment and Plan: infected mesh and open wound after perforated colon and fecal peritonitis in the setting of previous mesh hernia repair. Patient will be on Santyl dressing changes with silver rope and gauze. Expect this will take a long time to heal and may well require additional debridement. Recheck in the wound clinic in 4 days. Review of Systems Review of Systems: All systems reviewed & are unremarkable except as noted in HPI and below ( Wound care note) Exam GI: Inspection: incision ( slough and purulent fluid in wound bed-debrided in wound clinic. ) and other ( some mesh removed with debridement) GI Palp: Yes Soft to palpation, Yes Tenderness to palpation present (GI) and Yes Other GI palpation findings present ( see above)
--- NOTE | 2021-07-21 12:50 | WPDWOUNDNOTE ---
Wound Care Note Date/Time: 07/18/21 09:50 History: Patient presented June 06 with incarcerated right upper quadrant incisional hernia. At surgical repair, she had infarction and perforation of the hepatic flexure with fecal spillage and fecal peritonitis. She had had previous mesh repair of incisional hernias which had recurred despite these repairs. She underwent right colectomy with hernia repair. No additional mesh was used. She was quite ill afterwards being in the ICU on a mechanical ventilator and also with acute kidney injury. She improved postoperatively and was eventually discharged. At discharge, it was noted the most cephalad aspect of the midline incision had superficial skin opening and was cleansed with dressing changes ordered. Wound history: At the patient's 1st office visit she was noted to have more of an opening but still fairly superficial at the epigastric aspect of the previous incision. Wet to dry dressings were started. At her subsequent office visit, there was purulent material in the wound and exposed mesh. Mesh was debrided and the purulent fluid was evacuated. She was then referred to the Wound Clinic. She was initially seen in the wound clinic on 07/11/2021. There was still purulent fluid in the wound. There was also some exudate and slough. She was started on Santyl dressing changes with silver rope. Some additional mesh was excised. All suture material and mesh that was able to be found in the wound was excised. She is seen now for close follow-up 4 days after her last visit. There have been 2 areas more distal on the incision that have superficial skin openings. Wound approximation: No Wound width: 1.5 cm Wound length: 2 cm Wound depth: 7.8 cm tunnel Drainage: white, purulent with some serosanguineous Surrounding tissue appearance: healthy Tunneling: wound noted to tunnel from apical opening down to the uppermost epithelial openings. This is nearly an 8 cm length of tunnel. Percentage granulation tissue: Ninety Treatment/Procedures: I unroof the tunnel in the wound clinic under local anesthetic. 20 cc of 1% lidocaine with epinephrine were used to anesthetize the skin and superficial subcutaneous. The intervening scar and incision as well as the subcutaneous beneath was sharply opened. Silver nitrate cautery was used for hemostasis. Once opened, there was obvious white necrotic material some of which was exposed mesh. Nearly all of this was sharply excisionally debrided. Wound dimensions after debridement were 5 cm length, 2.5 cm with 1.5 cm depth with tunnel at 8:00 a.m. measuring 3 cm. Patient tolerated procedure adequately. Dressings: Mupirocin ointment and silver gel to wound bed then lightly fill with gauze and cover with ABD. Patient will continue this daily. Cultures of the wound have been obtained and are pending. Eventually we hope to place a wound VAC. Assessment and Plan Assessment and plan (1) Open abdominal wall wound: Code(s): S31.109A - Unspecified open wound of abdominal wall, unspecified quadrant without penetration into peritoneal cavity, initial encounter Status: Chronic Assessment and Plan: pending cultures of the wound. We are waiting for approval for wound VAC. In the antrum, continue mupirocin and silver gel with gauze and ABDs daily. Recheck patient in 2 weeks. Apply wound VAC in wound clinic if approved in the meantime. Review of Systems Review of Systems: All systems reviewed & are unremarkable except as noted in HPI and below ( wound care note) Constitutional: Constitutional: Denies chills, Denies fever(s), Denies headache(s) and Reports lethargy Exam GI: Inspection: obesity, no visible herniation and other ( larger but much janitor cleaner upper abdominal wound after opening incision furth) GI Palp: Yes Soft to palpation, Yes Tenderness to palpation present (GI), No Hernia present and No Palpable mass present
--- NOTE | 2021-08-02 09:53 | WPDWOUNDNOTE ---
Wound Care Note Date/Time: 08/02/21 09:53 History: Patient presented June 06 with incarcerated right upper quadrant incisional hernia. At surgical repair, she had infarction and perforation of the hepatic flexure with fecal spillage and fecal peritonitis. She had had previous mesh repair of incisional hernias which had recurred despite these repairs. She underwent right colectomy with hernia repair. No additional mesh was used. She was quite ill afterwards being in the ICU on a mechanical ventilator and also with acute kidney injury. She improved postoperatively and was eventually discharged. At discharge, it was noted the most cephalad aspect of the midline incision had superficial skin opening and was cleansed with dressing changes ordered. At outpatient follow-up, this wound subsequently had purulent drainage with exposed mesh requiring further care. Wound history: At the patient's 1st office visit she was noted to have more of an opening but still fairly superficial at the epigastric aspect of the previous incision. Wet to dry dressings were started. At her subsequent office visit, there was purulent material in the wound and exposed mesh. Mesh was debrided and the purulent fluid was evacuated. She was then referred to the Wound Clinic. She was initially seen in the wound clinic on 07/11/2021. There was still purulent fluid in the wound. There was also some exudate and slough. She was started on Santyl dressing changes with silver rope. Some additional mesh was excised. All suture material and mesh that was able to be found in the wound was excised. The wound was cultured and grew E coli sensitive to all antibiotics tested. Once all mesh in the wound was debrided as well as suture material and no further purulent drainage, patient has been started on wound VAC therapy. Wound VAC was started on 07/23/2021. She is seen back now for wound follow-up. Wound approximation: No ( smaller, more distal and superficial wounds have completely healed. ) Wound width: 3 cm Wound length: 4 cm Wound depth: 5.5 cm- tunnels to the right. Tunnel was 6.5 cm 4 days ago. barely palpable mesh in wound with no lucencies. Seems to be becoming incorporated in granulation tissue and healing. Drainage: Serosanguineous Surrounding tissue appearance: dry clean Tunneling: tunnels to the right, 5.5 cm today, was 6.5 cm on 07/29/2021. Percentage granulation tissue: 100% Treatment/Procedures: None Dressings: continue wound VAC therapy. Remainder of abdominal incision is healing well with no open areas or suspicious areas.
--- NOTE | 2021-08-15 09:03 | PCWOUND ---
WOCN NOTE patient called to cancel appointment for today due to weather conditions. Rescheduled for tomorrow 08/16/21 at 1200.
--- NOTE | 2021-08-17 11:56 | WPDWOUNDNOTE ---
Wound Care Note Date/Time: 08/16/21 11:56 History: Patient presented June 06 with incarcerated right upper quadrant incisional hernia. At surgical repair, she had infarction and perforation of the hepatic flexure with fecal spillage and fecal peritonitis. She had had previous mesh repair of incisional hernias which had recurred despite these repairs. She underwent right colectomy with hernia repair. No additional mesh was used. She was quite ill afterwards being in the ICU on a mechanical ventilator and also with acute kidney injury. She improved postoperatively and was eventually discharged. At discharge, it was noted the most cephalad aspect of the midline incision had superficial skin opening and was cleansed with dressing changes ordered. At outpatient follow-up, this wound subsequently had purulent drainage with exposed mesh requiring further care. Wound history: At the patient's 1st office visit she was noted to have more of an opening but still fairly superficial at the epigastric aspect of the previous incision. Wet to dry dressings were started. At her subsequent office visit, there was purulent material in the wound and exposed mesh. Mesh was debrided and the purulent fluid was evacuated. She was then referred to the Wound Clinic. She was initially seen in the wound clinic on 07/11/2021. There was still purulent fluid in the wound. There was also some exudate and slough. She was started on Santyl dressing changes with silver rope. Some additional mesh was excised. All suture material and mesh that was able to be found in the wound was excised. The wound was cultured and grew E coli sensitive to all antibiotics tested. Once all mesh in the wound was debrided as well as suture material and no further purulent drainage, patient has been started on wound VAC therapy. Wound VAC was started on 07/23/2021. Wound has been healing but there is some tunneling to the right side of the wound despite wound VAC therapy. Wound approximation: No Wound width: 1.8 cm Wound length: 4.0 cm Wound depth: 4.5 cm Drainage: pink, serosanguineous Surrounding tissue appearance: healthy scar or dry skin Tunneling: still tunnels to the right about 5 cm. Percentage granulation tissue: 100% Treatment/Procedures: no treatments done today. After discussion with the patient, we will take a wound VAC holiday and see if the tunneling will improve using Aquacel Advantage silver rope and dry gauze. Dressings: [place] fiber silver (Aquacel Ag) daily and dry gauze. Clean with soap and water daily as well. Assessment and Plan Assessment and plan (1) Open abdominal wall wound: Code(s): S31.109A - Unspecified open wound of abdominal wall, unspecified quadrant without penetration into peritoneal cavity, initial encounter Status: Chronic Assessment and Plan: discussed possible need for unroofing the right-sided tunneling if does not improve with wound care therapy. Patient would like to try something besides the wound VAC. We will go ahead with the Aquacel Advantage silver rope as outlined above. I will see her back in about 10 days in the Wound Clinic. Review of Systems Review of Systems: All systems reviewed & are unremarkable except as noted in HPI and below Constitutional: Constitutional: Denies body ache(s), Denies chills, Denies fever(s) and Reports lethargy ( Improving) Gastrointestinal: Gastrointestinal: Denies abdominal pain, Denies nausea and Denies vomiting Exam GI: Inspection: non-distended, scar and other ( granulating open wound with tunneling to the right) GI Palp: Yes Soft to palpation and No Tenderness to palpation present (GI)
--- NOTE | 2021-08-26 15:46 | WPDWOUNDNOTE ---
Wound Care Note Date/Time: 08/26/21 15:46 History: Patient presented June 06 with incarcerated right upper quadrant incisional hernia. At surgical repair, she had infarction and perforation of the hepatic flexure with fecal spillage and fecal peritonitis. She had had previous mesh repair of incisional hernias which had recurred despite these repairs. She underwent right colectomy with hernia repair. No additional mesh was used. She was quite ill afterwards being in the ICU on a mechanical ventilator and also with acute kidney injury. She improved postoperatively and was eventually discharged. At discharge, it was noted the most cephalad aspect of the midline incision had superficial skin opening and was cleansed with dressing changes ordered. At outpatient follow-up, this wound subsequently had purulent drainage with exposed mesh requiring further care. Wound history: At the patient's 1st office visit she was noted to have more of an opening but still fairly superficial at the epigastric aspect of the previous incision. Wet to dry dressings were started. At her subsequent office visit, there was purulent material in the wound and exposed mesh. Mesh was debrided and the purulent fluid was evacuated. She was then referred to the Wound Clinic. She was initially seen in the wound clinic on 07/11/2021. There was still purulent fluid in the wound. There was also some exudate and slough. She was started on Santyl dressing changes with silver rope. Some additional mesh was excised. All suture material and mesh that was able to be found in the wound was excised. The wound was cultured and grew E coli sensitive to all antibiotics tested. Once all mesh in the wound was debrided as well as suture material and no further purulent drainage, patient has been started on wound VAC therapy. Wound VAC was started on 07/23/2021. Wound has been healing but there is some tunneling to the right side of the wound despite wound VAC therapy.At her last visit of 08/16/2021 we decided to take a wound VAC holiday and start and daily soap and water cleaning with Aquacel Silver to the wound and dry gauze. She is seen back in the wound clinic today for follow-up. Wound approximation: No Wound width: 1.4 cm Wound length: 2.9 cm Wound depth: 5 cm- this includes the tunneling to the right. Drainage: Serosanguineous, no odor Surrounding tissue appearance: dry, healthy Tunnelin cm tunneling to the right Percentage granulation tissue: 100% Treatment/Procedures: no treatment or procedures. Dressings: Return to wound VAC therapy. Assessment and Plan Assessment and plan (1) Open abdominal wall wound: Code(s): S31.109A - Unspecified open wound of abdominal wall, unspecified quadrant without penetration into peritoneal cavity, initial encounter Status: Chronic Assessment and Plan: patient has persistent tracking from the midline to about 5 cm right of midline in the only open area remaining of her midline incision. I discussed unroofing this tunnel in the wound clinic versus doing it in surgery with the patient. I recommended doing this in surgery as with anesthetic and surgical instruments as well as the surgical environment, I could more likely find the area that is causing persistent failure to heal. I suspect this is more mesh that was contaminated during the surgery and now continues to sore serve as a nidus of infection and failure to heal. This would need to be debrided. After discussion, patient agrees to do this in surgery. We will go ahead and arrange for this to be done as an outpatient on Saturday August 28, 2021. (2) Encounter for surgical aftercare following surgery on the digestive system: Code(s): Z48.815 - Encounter for surgical aftercare following surgery on the digestive system Status: Chronic Assessment and Plan: Remainder of her wound doing well and no obvious recurrent hernia. (3) Incarcerated herni
--- NOTE | 2021-08-30 14:19 | WPDWOUNDNOTE ---
Wound Care Note Date/Time: 08/30/21 10:19 Patient seen in the Wound Clinic. She is 2 days status post debridement of abdominal wall mesh and closure of abdominal wall fascia. She has had a wound VAC in place since surgery. No new complaints or problems. Assessment and Plan Assessment and plan (1) Open abdominal wall wound: Code(s): S31.109A - Unspecified open wound of abdominal wall, unspecified quadrant without penetration into peritoneal cavity, initial encounter Status: Chronic Assessment and Plan: Wound healing well. Very clean. Continue wound VAC therapy and see her again in wound clinic in 2 weeks. (2) Encounter for surgical aftercare following surgery on the digestive system: Code(s): Z48.815 - Encounter for surgical aftercare following surgery on the digestive system Status: Chronic Review of Systems Review of Systems: All systems reviewed & are unremarkable except as noted in HPI and below (HPI) Constitutional: Constitutional: Denies chills, Denies fever(s) and Denies poor appetite Gastrointestinal: Gastrointestinal: Reports abdominal pain (Minimal abdominal pain), Denies heartburn, Denies diarrhea, Denies nausea and Denies vomiting Exam Const: General: cooperative, comfortable, alert and awake Nutritional Appearance: overweight Orientation/consciousness: patient oriented x3 GI: Inspection: incision (Abdominal wound looks great. No residual mesh. Granulating.) GI Palp: Yes Soft to palpation and Yes Tenderness to palpation present (GI) (Minimal appropriate tenderness)
--- NOTE | 2021-09-09 18:26 | WPDWOUNDNOTE ---
Wound Care Note Date/Time: 09/09/21 18:26 patient underwent excisional debridement of abdominal wall mesh as well as skin subcutaneous and muscle on 08/28/2021. She has had a wound VAC in place since her surgery. She is seen in follow-up today in the Wound Clinic. She has no new complaints or problems. Assessment and Plan Assessment and plan (1) Open abdominal wall wound: Code(s): S31.109A - Unspecified open wound of abdominal wall, unspecified quadrant without penetration into peritoneal cavity, initial encounter Status: Chronic Assessment and Plan: healing very well now after debridement on August 28 and wound VAC therapy for the last 12 days. We will put a wound VAC on hold. The wound was Steri stripped closed with benzoin. Midline open portion of the wound will be dressed with silver gel and Aquacel rope. She will shower and change this dressing daily starting tomorrow. I will see her back in the wound clinic in 1 week. Review of Systems Review of Systems: All systems reviewed & are unremarkable except as noted in HPI and below Constitutional: Constitutional: Denies chills and Denies fever(s) Integumentary/Breasts: Skin/Breast: Denies lesions and Denies rash Exam Const: General: comfortable and no acute distress; No confusion Orientation/consciousness: patient oriented x3 and No confusion GI: Inspection: incision ( Wound clean granulating and nearly approximating itself) and other ( no tension on the wound surfaces as they approximate 1 another) GI Palp: Yes Soft to palpation, No Tenderness to palpation present (GI) and No Hernia present Neuro: General: patient oriented x3, no focal motor deficits and No confusion Extrem: General: no calf tenderness and no edema Psych: Affect: normal affect Insight: Good insight present (Psych) Judgement: Good judgement present (Psych)
--- NOTE | 2021-09-30 17:54 | WPDWOUNDNOTE ---
Wound Care Note Date/Time: 09/30/21 17:54 History: Patient presented June 06 with incarcerated right upper quadrant incisional hernia. At surgical repair, she had infarction and perforation of the hepatic flexure with fecal spillage and fecal peritonitis. She had had previous mesh repair of incisional hernias which had recurred despite these repairs. She underwent right colectomy with hernia repair. No additional mesh was used. She was quite ill afterwards being in the ICU on a mechanical ventilator and also with acute kidney injury. She improved postoperatively and was eventually discharged. At discharge, it was noted the most cephalad aspect of the midline incision had superficial skin opening and was cleansed with dressing changes ordered. At outpatient follow-up, this wound subsequently had purulent drainage with exposed mesh requiring further care. Wound history: At the patient's 1st office visit she was noted to have more of an opening but still fairly superficial at the epigastric aspect of the previous incision. Wet to dry dressings were started. At her subsequent office visit, there was purulent material in the wound and exposed mesh. Mesh was debrided and the purulent fluid was evacuated. She was then referred to the Wound Clinic. She was initially seen in the wound clinic on 07/11/2021. There was still purulent fluid in the wound. There was also some exudate and slough. She was started on Santyl dressing changes with silver rope. Some additional mesh was excised. All suture material and mesh that was able to be found in the wound was excised. The wound was cultured and grew E coli sensitive to all antibiotics tested. Once all mesh in the wound was debrided as well as suture material and no further purulent drainage, patient has been started on wound VAC therapy. Wound VAC was started on 07/23/2021. The wound healed but there was some tracking from some of the upper lower portion of the wound to the patient's right. We stop the wound VAC and tried Aquacel Silver. The tracking did not resolve. The patient was taken back to surgery on 08/28/2021. Debridement of skin subcutaneous muscle and some additional abdominal wall mesh was performed. The area tracking to the right was completely unroof it so that it was fully exposed for wound care. Wound VAC was stopped on 09/09/2021 and the tracking portion of the wound was Steri-Stripped closed. The midline and some of the right-sided portion that was still open was dressed with silver gel an Aquacel rope. Topical antimicrobial coverage with gentamicin ointment was started on 09/23/2021. Steri-Strips had fallen off by 09/23/2021. She has continued to improve. She is seen now in the wound clinic in follow-up. Wound approximation: No Wound width: 0.6 cm Wound length: 2.8 cm Wound depth: 0.5 cm Drainage: serosanguineous Surrounding tissue appearance: dry, healthy Tunneling: none Percentage granulation tissue: 100 Treatment/Procedures: Silver nitrate used to treat some hypertrophic areas in the wound bed. Dressings: Patient will continue to cover daily with dry gauze. Once the scab from silver nitrate cautery falls off, if there is drainage, patient will resume a thin layer of gentamicin ointment daily and again cover with dry gauze. Assessment and Plan Assessment and plan (1) Open abdominal wall wound: Code(s): S31.109A - Unspecified open wound of abdominal wall, unspecified quadrant without penetration into peritoneal cavity, initial encounter Status: Chronic Assessment and Plan: Wound has now almost completely healed. Wound care as noted above. She has healed with no evidence of reherniation. I will see her again in the Wound Clinic in 2 weeks. Doing very well. Review of Systems Review of Systems: All systems reviewed & are unremarkable except as noted in HPI and below ( Wound care note) Constitutional: Constitutional: Denies chills, Denies fev
--- NOTE | 2021-09-30 18:08 | WPDWOUNDNOTE ---
Wound Care Note Date/Time: 09/16/21 10:08 Tunneled area of the wound was opened and debrided on 08/28/2021. Wound VAC was continued but at last visit of 09/09/2021 wound was Steri-Stripped closed. Center portion of the wound dressed with Aquacel Silver rope and gauze daily. Seen now in follow-up. Assessment and Plan Assessment and plan (1) Open abdominal wall wound: Code(s): S31.109A - Unspecified open wound of abdominal wall, unspecified quadrant without penetration into peritoneal cavity, initial encounter Status: Chronic Assessment and Plan: wound VAC had been halted temporarily but we can go ahead and discontinue the wound VAC therapy. Continue Aquacel Silver Advantage rope and cover with dry gauze dressing daily. I will see her again in 2 weeks. Review of Systems Review of Systems: All systems reviewed & are unremarkable except as noted in HPI and below ( Wound care note above) Exam GI: Inspection: incision ( couple of medial Steri-Strips removed as wound had not come together there), scar and other ( rest of wound healing well where Steri-Strips applied) GI Palp: Yes Soft to palpation and No Tenderness to palpation present (GI)
== END 2021-10-09 23:59 | disposition home or self-care (01) ==
LOC: ANHWOC 07:31
PROVIDERS: Visit Provider Surgery
DX: S31.109D Unspecified open wound of abdominal wall, unspecified quadrant without penetration into peritoneal cavity, subsequent encounter (principal)
CPT/HCPCS: 11042; 87070; 87077; 87186; 87205; 97605; 99212; 99213; A9270; G0463

== ENCOUNTER 2021-11-04 07:18 | Outpatient (RCR) | payer BC, SELFPAY ==
[2021-10-10 00:02] VITALS: BMI 33.0
== END 2021-12-30 08:06 | disposition home or self-care (01) ==
LOC: ANHWOC 07:18
PROVIDERS: Visit Provider Surgery
DX: S31.109D Unspecified open wound of abdominal wall, unspecified quadrant without penetration into peritoneal cavity, subsequent encounter (principal)
CPT/HCPCS: 99212; G0463

== ENCOUNTER 2024-12-30 13:19 | Emergency (ER) | payer OTHER, SELFPAY ==
--- NOTE | ~2024-12-30 | XR_ITS ---
EXAM/ PROCEDURE: XR forearm RT 2V - 12/30/2024 15:00 CDT HISTORY: 49 years old Female with fall-hit on metal rack/mid to proximal forearm pain COMPARISON: None available TECHNIQUE: Two view(s) FINDINGS/ IMPRESSION: There are no fractures or dislocations.Joint spaces are within normal limits. Reviewed, dictated and finalized at location A.
[2024-12-30 13:30] VITALS: BP 147/97; PULSE 91; RESP 14; TEMP 37.1; O2SAT 98
[2024-12-30] MEDS: ACETAMINOPHEN 500 MG TABLET 1000 MG PO (13:41)
--- NOTE | 2024-12-30 14:08 | ED.UPPEXIN ---
HPI - Extremity Injury (Upper) General Chief Complaint: Extremity Injury, Upper Stated Complaint: FALL Time Seen by Provider: 12/30/24 13:50 Source: patient Mode of arrival: ambulatory Limitations: no limitations History of Present Illness HPI narrative: Katlin is a 49-year-old female patient presenting to the clinic today with complaints of right forearm pain after falling at work around 12:30 today. She reports when she fell her right posterior forearm hit a metal rack. Is having pain to the mid/proximal forearm. Pain moving her arm. Rates pain 7/10 when she is moving her arm and 4/10 when resting. She has not taken any Tylenol or ibuprofen since the injury. Denies hitting her head or any loss of consciousness. Related Data Allergies Allergy/AdvReac Type Severity Reaction Status Date / Time No Known Allergies Allergy Verified 12/30/24 13:24 Review of Systems Review of Systems: Pertinent positives per HPI. Patient denies any fever, chills, rash, headache, visual changes, dizziness, cough, runny nose, sore throat, shortness of breath, chest pain, palpitations, nausea, vomiting, diarrhea, constipation, abdominal pain, or any urinary issues. [facility] Past Medical History Medical History Morbid obesity Surgical History Surgical History H/O right hemicolectomy 06/06/ adhesiolysis, right hemicolectomy, repair multiple incisional hernias. History of section History of creation of ostomy Social History Social History Smoking packs per day: 1 Smoking cigarettes per day: 20.0 Years smoked: 15 Smoking pack-years: 15.00 Smoking status: Former smoker Tobacco type: cigarettes Smoking end date: 06/22/11 Alcohol intake: never Substance use: never Substance use type: does not use Living arrangements: with family Spiritual care concerns: No Comments At the time of my signature, I reviewed and agree with the nursing past medical, surgical, social, and family history. There is no relevant family history pertinent to the patient complaint. Exam Narrative: General: Well-developed, well nourished, in no apparent distress Head: Normocephalic, atraumatic. Cardio: Regular rate and rhythm, s1 and s2 normal, no murmur appreciated. Resp: Clear to auscultation bilaterally, no rhonchi, rales, wheezing or rubs. Musculoskeletal: No deformity, no bruising or swelling noted, tender to palpation over the mid/proximal right posterior forearm, pain with supination and pronation against resistance, no pain with flexion and extension, grossly normal range of motion, muscle strength strong and equal, peripheral pulse strong, no edema, no cyanosis, normal gait and station Course Course Emergency Course: Portions of this record may have been created with voice recognition software. Level of Care: Express Care Visit Vital Signs Vital signs: Vital Signs Temperature 37.1 C 12/30/24 13:30 Pulse Rate 91 12/30/24 13:30 Respiratory Rate 14 12/30/24 13:30 Blood Pressure 147/97 H 12/30/24 13:30 Pulse Oximetry 98 12/30/24 13:30 Temperature 37.1 C 12/30/24 13:30 Pulse Rate 91 12/30/24 13:30 Respiratory Rate 14 12/30/24 13:30 Blood Pressure 147/97 H 12/30/24 13:30 Pulse Oximetry 98 12/30/24 13:30 Vital signs reviewed MDM - Extremity Injury (Upper) MDM Narrative Medical decision making narrative: At the time of visit patient is resting comfortably on the exam table. Patient appears to be nontoxic. Patient reporting injury to the right posterior forearm-hit on a metal rack when she fell. Has pain and tenderness to the mid to proximal forearm as well as pain with supination and pronation against resistance. Will order x-ray to rule out radial fracture. Patient is aware that we do not currently have x-ray in the clinic but we should get a x-ray tech after 2:00 p.m.. Patient agrees to wait. Ice pack was given in will offer Tylenol Medications: Tylenol 1 g p.o. given in the clinic today Diagnostics: Forearm x-ray was performed and negative for any sign of fracture or malalignment Plan: I suspect patient has right forearm contusion. Mo wrap was applied, ice pack was given and Tylenol was given in the clinic today. Work note was given for tomorrow. Supportive measures were discussed with the patient and they voiced understanding discharge instructions and agrees to treatment plan. Return precautions reviewed. Differential Diagnosis Differential diagnosis: Likely other (Forearm fracture, forearm contusion, soft tissue injury, tendon injury) Imaging Data Radiologist's impression: [facility] [address] [place] [address] XRay Report Signed Patient: Katlin Barton : 1975 MR#: [id number] Age: 49 Acct:[id number] Loc: [facility] ADM Date: 12/30/24Attending Dr: Ordering Physician: Yoseph Zhang APRN Date of Service: 12/30/24 Procedure(s): XR forearm RT 2V Accession Number(s): [id number] cc: Jatinder, Tiera SERRATO; Yoseph Zhang APRN~ EXAM/ PROCEDURE: XR forearm RT 2V - 12/30/2024 15:00 CDT HISTORY: 49 years old Female with fall-hit on metal rack/mid to proximal forearm pain COMPARISON: None available TECHNIQUE: Two view(s) FINDINGS/ IMPRESSION: There are no fractures or dislocations.Joint spaces are within normal limits. Reviewed, dictated and finalized at location A. Please be advised this is a medical document. It is intended for [id number] communication. It is written in medical language and may contain unfamiliar abbreviations or verbiage. Medical documents are intended to carry relevant information, facts as evident, and the clinical opinion of the practitioner at the time of the encounter. This report may have been done utilizing a voice recognition system. Attempts have been made to correct errors. However, there may be uncorrected grammatical, spelling, and recognition errors present. The file time of this note does not necessarily represent the time of service. Dictated By: Sarah Castanon MD 12/30/24 1517 Signed By: <Electronically signed by Sarah Castanon MD in OV> 12/30/241516 Discharge Plan Discharge Clinical Impression: Contusion of forearm, right Qualifiers: Encounter type: initial encounter Qualified Code(s): S50.11XA - Contusion of right forearm, initial encounter Patient Disposition: Home Condition: Stable Instructions: Antibiotic Form, Contusion in Adults (ED) Additional Instructions: Tylenol 1 g given in the clinic today X-ray of the right forearm was negative for any sign of fracture or malalignment. Rest, ice, elevate, and wear mo wrap as directed Tylenol/motrin for pain as discussed. Gradually bear weight No running or sports until healed. Follow up with your PCP if symptoms persist more than 1 week. Patient Language: Romanian Follow-up/Referrals: Jatinder,AMA Mott [Primary Care Provider] - Stand Alone Forms: Work/School Release IP Time of Disposition: 15:19 Quality NIHSS Nursing Documentation ED NIHSS nursing documentation: reviewed/agree
== END 2024-12-30 15:25 | disposition home or self-care (01) ==
PROVIDERS: Emergency Provider Nurse Practitioner Family; PCP Physician Assistant
DX: S50.11XA Contusion of right forearm, initial encounter (principal); Z87.891 Personal history of nicotine dependence; W18.30XA Fall on same level, unspecified, initial encounter
CPT/HCPCS: 73090; 99213; A9270; G0463